=== PATIENT | male | born 1990 | race Two or more races ===

== ENCOUNTER 2019-07-24 14:50 | Emergency (ER) | payer MEDICAID, OTHER ==
[~2019-07-24] VITALS: Ht 177.8 cm; Wt 80.0 kg
[~2019-07-24 14:50] MED LIST: DIVA-76 PO; GEMF600T89 PO; IBUP-1985 PO; OLAN20TA34 PO
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
[2019-07-24] MEDS ORDERED: ibuprofen tablet 400 MG TABLET PO ONE (15:05)
[2019-07-24] MEDS ORDERED: ibuprofen 200mg tablet PO ONE (15:10)
[2019-07-24] MEDS ORDERED: LITH300C PO (15:32)
[2019-07-24] MEDS ORDERED: OLAN20TA3 PO (15:34)
[2019-07-24] MEDS ORDERED: QUET-1 PO (15:38)
[2019-07-24 15:46] LABS: BASOPHILS % (AUTO) 0.2 % (0-1); EOSINOPHILS % (AUTO) 0.2 % (0-6); HEMATOCRIT 46.6 % (42.0-52.0); HEMOGLOBIN 15.7 g/dl (14.0-17.9); LYMPHOCYTES # (AUTO) 1.3 X10'3 (1.1-4.8); MEAN CORPUSCULAR HEMOGLOBIN 30.3 PG (27.0-31.0); MEAN CORPUSCULAR HGB CONC 33.6 g/dL (33.0-36.5); MEAN CORPUSCULAR VOLUME 90.1 FL (78-98); MONOCYTES # (AUTO) 0.7 X10'3 (0-0.9); MONOCYTES % (AUTO) 7.2 % (2-12); NEUTROPHILS % (AUTO) 79.4 % (42-75); PLATELET COUNT 360 X10'3 (140-440); RED BLOOD COUNT 5.17 X10'6 (4.70-6.10); RED CELL DISTRIBUTION WIDTH 14.5 % (11.5-14.5); WHITE BLOOD COUNT 10.1 X10'3 (4.5-11.0)
--- NOTE | 2019-07-24 15:57 | NUR ---
PT TAKEN TO MAIN ER FOR SAFETY REASONS
[2019-07-24 15:58] LABS: CLARITY,URINE CLEAR (Clear); COLOR,URINE YELLOW (Yellow); GLUCOSE, URINE NEGATIVE (Neg); KETONES,URINE NEGATIVE (Neg); LEUKOCYTE ESTERASE ,URINE NEGATIVE (Neg); NITRITES, URINE NEGATIVE (Neg); OCCULT BLOOD,URINE TRACE-INTACT (Neg); PROTEIN,URINE NEGATIVE (Neg); UA COLLECTION TYPE CLN CATCH MIDSTREAM; UROBILINOGEN,URINE 0.2 E.U/dL (0.2-1.0)
[2019-07-24 16:04] LABS: ALANINE AMINOTRANSFERASE 21 U/L (12-78); ALBUMIN 4.2 G/DL (3.4-5.0); ALBUMIN/GLOBULIN RATIO 1.1 (1.1-1.5); ALKALINE PHOSPHATASE 97 IU/L (46-116); ANION GAP 3 (8-16); ASPARTATE AMINO TRANSFERASE 6 U/L (10-37); BILIRUBIN,TOTAL 0.4 MG/DL (0.1-1.0); BLOOD UREA NITROGEN 10 MG/DL (7-18); BUN/CREATININE RATIO 9.7 (5.4-32.0); CHLORIDE 110 MMOL/L (99-107); CREATININE 1.03 MG/DL (0.60-1.10); GLUCOSE 97 MG/DL (70-104); POTASSIUM 4.2 MMOL/L (3.5-5.1); SODIUM 144 MMOL/L (135-145); TOTAL CARBON DIOXIDE 30.6 MMOL/L (24-32); TOTAL PROTEIN 8.2 G/DL (6.4-8.2); eGFR 87 ML/MIN
[2019-07-24 16:04] LABS: BACTERIA,URINE NONE SEEN /HPF (Neg); MUCUS STRANDS NONE SEEN /LPF (Neg); RBC,URINE 0-2 /HPF (0-2); SQUAMOUS EPITHELIAL CELL,UR FEW /LPF (FEW); WBC,URINE 0-4 /HPF (0-4)
[2019-07-24 16:07] LABS: URINE AMPHETAMINE SCREEN NEGATIVE (Neg); URINE BARBITUATE SCREEN NEGATIVE (Neg); URINE BENZODIAZEPINES SCREEN NEGATIVE (Neg); URINE CANNABINOID SCREEN NEGATIVE (Neg); URINE COCAINE SCREEN NEGATIVE (Neg); URINE METHADONE SCREEN NEGATIVE (Neg); URINE OPIATE SCREEN NEGATIVE (Neg); URINE PHENCYCLIDINE SCREEN NEGATIVE (Neg)
[2019-07-24 16:10] LABS: ETHANOL < 0.010 GM/DL (0.0-0.010)
[2019-07-24 16:12] LABS: ACETAMINOPHEN < 2.0 UG/ML (10-30)
--- NOTE | 2019-07-24 17:16 | NUR ---
IN BED GETS UP SOMETIMES AND WALKS AROUND ROOM NO OUTBURST OR VILENT BEHAVORE SEEN
[2019-07-24] MEDS ORDERED: diphenhydrAMINE 25mg capsule PO ONE (17:35)
[2019-07-24] MEDS ORDERED: haloperidol lactate 5mg/ml inj IM ONE ×2 (17:45→18:30)
[2019-07-24] MEDS ORDERED: LORazepam 2 mg/ml vial IM ONE (17:45)
--- NOTE | 2019-07-24 18:20 | NUR ---
PT REFUSED ATIVAN AND HADOL SAY HE DOES NOT WANT A SHOT BUT WOULD TAKE A PILL TALK TO RAJNI GARCIA HE SAID HE IS FINE HOLDING OFF FOR NOW IF HE REMAINS CALM
--- NOTE | 2019-07-24 19:33 | NUR ---
The patient was moved to bed 20 form bed 16. He was very cooperative and friendly with staff and peers. He currently is eating his dinner. He denies physical complaints. He stated he is homeless and was sent to [facility] from [facility] for conservatorship.
[2019-07-24] MEDS: lithium carbonate 150mg capsule PO SCH (20:22)
[2019-07-24] MEDS: olanzapine 10mg tablet PO SCH (20:23)
[2019-07-24] MEDS: quetiapine 100mg tablet PO SCH (20:23)
--- NOTE | 2019-07-24 20:32 | NUR ---
The patient took his HS medications. He remains polite and pleasant.
--- NOTE | 2019-07-24 22:10 | NUR ---
The patient is awake but cooperative.
--- NOTE | 2019-07-24 23:02 | NUR ---
xaviert faxed to [facility]
--- NOTE | 2019-07-24 23:30 | NUR ---
The patient is awake. Frequently asking for juice and water. The patient was told no extra fluids for the rest of the evening 2nd to electrolyte balance.
--- NOTE | 2019-07-24 23:46 | NUR ---
The patient reports he is awake because "of the pressure of the air"
--- NOTE | 2019-07-25 01:12 | NUR ---
The patient appears to be sleeping
--- NOTE | 2019-07-25 04:22 | NUR ---
The patient appears to be sleeping.
--- NOTE | 2019-07-25 05:30 | NUR ---
The patient appears to be sleeping
[2019-07-25] MEDS ORDERED: LORazepam 2 mg/ml vial IM PRN (07:00)
--- NOTE | 2019-07-25 07:11 | NUR ---
Pt is alseep on his side, no stress noted.
--- NOTE | 2019-07-25 07:34 | NUR ---
PT IS SLEEPING, RESPIRATIONS SPONTANEOUS, EVEN AND UNLABORED, NO S/S OF DISTRESS, DISCOMFORT OR AGITATION.
--- NOTE | 2019-07-25 08:33 | NUR ---
Pt woke up for breakfast with lots of staff prompting, he acted startled, stated that "I thought you are a boogieman" to staff. Cooperative and compliant with nursing assessment, advised that he has no intent to harm self or others.
--- NOTE | 2019-07-25 08:40 | NUR ---
PT SITTING UP AT BEDSIDE EATING BREAKFAST, PT CONTINUES TO BE CALM AND COOPERATIVE WITH STAFF, PT IN LINE OF SITE OF NURSING STATION WITH RN AND ED SITTERS
--- NOTE | 2019-07-25 09:13 | NUR ---
Pt advised that he can't sleep, staff offered magazine. Pt got up for bathroom, gait steady. No stress/anxiety noted.
--- NOTE | 2019-07-25 09:47 | NUR ---
Pt advised that he is not sleepy and he wanted to chat. 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 Pt denied AH/VH.
--- NOTE | 2019-07-25 10:47 | NUR ---
PT REFUSED IM ATIVAN 1 MG, CALLED DR WILSON RECEIVED VERBAL ORDER 1 MG PO ATIVAN ONCE.
[2019-07-25] MEDS ORDERED: LORazepam 1 MG tablet PO ONE (10:50)
--- NOTE | 2019-07-25 11:03 | NUR ---
Gave pt Ativan 1 mg PO, pt took PRN med without any incident.
--- NOTE | 2019-07-25 12:34 | NUR ---
Pt can be intrusive, does interupt staff often asking for snacks. Pt c/o hungry, staff gave him an extra from this morning.
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
--- NOTE | 2019-07-25 13:49 | NUR ---
Pt finished his late lunch tray. He is awake in bed, appears calm.
--- NOTE | 2019-07-25 15:10 | NUR ---
Pt is laying in bed, has been requesting water constantly. Staff provided education on water toxicity.
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
--- NOTE | 2019-07-25 19:38 | NUR ---
The patient is sitting on his bed and presents as calm and pleasant. He denies that he is having auditory or visual hallucinations but has been observed laughing to himself. When asked how his mood was he stated, "pleasant" He denies anxiety. He denies thoughts to harm himself or others. Reviewed plan of care with the patient.
[2019-07-25] MEDS: olanzapine 10mg tablet PO SCH (20:14)
[2019-07-25] MEDS: lithium carbonate 150mg capsule PO SCH (20:14)
[2019-07-25] MEDS: quetiapine 100mg tablet PO SCH (20:14)
--- NOTE | 2019-07-25 20:52 | NUR ---
The patient is resting on his bed and periodically laughing to himself. He took his HS medications without problems and had an evening snack.
--- NOTE | 2019-07-25 23:16 | NUR ---
The patient appears to be sleeping
--- NOTE | 2019-07-26 00:42 | NUR ---
The patient appears to be sleeping
--- NOTE | 2019-07-26 03:01 | NUR ---
The patient is currently sleeping
--- NOTE | 2019-07-26 04:47 | NUR ---
The patient appears to have slept well during the night
--- NOTE | 2019-07-26 07:00 | NUR ---
pt asleep in bad 20 NAD
--- NOTE | 2019-07-26 09:00 | NUR ---
consumed 100% of breakfast. is resting comfortably in bed, drinking coffee, pleasant and cooperative
--- NOTE | 2019-07-26 11:03 | NUR ---
PT AWAKE SITTING UP IN BED DRINKING COFFEE. NO NEEDS AT THIS TIME
--- NOTE | 2019-07-26 11:03 | NUR ---
Freda argueta in [facility] - 07/26/19 at 1103 by TIA PT AWAKE SITTING UP IN BED NO
--- NOTE | 2019-07-26 11:07 | NUR ---
UP TO BR, GAIT STEADY
--- NOTE | 2019-07-26 12:26 | NUR ---
PT REPORTS HAVING SOME INDIGESTION FROM THE FOOD THAT WE SERVE, ASKED FOR MALOX AND VISCOUS LIDOCAINE FROM DR CAO, WILL MEDICATE PT AFTER ORDERS HAVE BEEN PROCESS, PT INCREASINGLY TALKING TO NURSE AT STATION FROM BED, ASKED PT IF HE NEEDS ANYTING FOR ANXIETY AND PT STATES HE IS FEELING FINE, PT INFORMED TO EAT ICE CHIPS PT HAS ALREADY HAD 2 CUPS OF COFFEE AND A 2 PITCHERS OF WATER, PT INFORMED OF POTENTIAL OF WATER TOXICITY AND IS AGREEABLE
[2019-07-26] MEDS ORDERED: pantoprazole 40mg Tablet.DR PO ONE (12:30)
[2019-07-26] MEDS ORDERED: mag hydrox/Alum hydrox/simeth 30ml oral suspension PO ONE (12:30)
--- NOTE | 2019-07-26 12:35 | NUR ---
NEENA WITH JONATHON HUSAIN AT BEDSIDE SPEAKING WITH PT, NEENA ALSO BROUGHT PT 2 BAGS OF CLOTHES WITH INVENTORY SHEET, DAHIANA COPIED INVENTORY SHEET PLACED IN CHART AND CLOTHES LOCKED IN AMBULANCE BAY LOCKERS.
--- NOTE | 2019-07-26 12:48 | NUR ---
MEDICATED PT WITH PROTONIX AND MALOX PER ORDERS, PT SITTING UP IN BED WAITING FOR LUNCH TO ARRIVE.
--- NOTE | 2019-07-26 13:14 | NUR ---
LUNCH TRAY PLACED AT BEDSIDE, AND SITTING UP EATING AT THIS TIME
--- NOTE | 2019-07-26 13:52 | NUR ---
relieving RN for break, pt is resting quietly on bed, calm and cooperative, pt c/p pain to left elbow where blood was drawn, gave pt a bag with ice chips
--- NOTE | 2019-07-26 16:19 | NUR ---
PT REPORTS FEELING ANXIOUS, PT INCREASINGLY CALLING OUT TO TALK TO STAFF AT NURSES STATION, ASKING FOR BOOKS, WATER, FOOD, AND COFFEE, CALLED OTERO PA RECEIVED VERBAL ORDER FOR 1 MG ATIVAN PO ONCE NOW.
[2019-07-26] MEDS ORDERED: LORazepam 1 MG tablet PO ONE (16:20)
--- NOTE | 2019-07-26 16:26 | NUR ---
PT MEDCIATED WITH 1 MG ATIVAN PER ORDERS, PT IS NOW READING THE BIBLE. PT WAS CALM AND COOPERATIVE WITH RN DURING INTERACTION
--- NOTE | 2019-07-26 18:55 | NUR ---
Patient is sitting at bedside. He is awake and well oriented. Patient states he is feeling like life is very complicated, "It's hard to figure out." Patient states he is feeling more relaxed after receiving ativan a short time ago. Patient ate his full meal. Patient exhibits a blunted affect. He tells this health underwriter that he is bipolar. He denies S/I, or H/I at this time. Patient exhibits is now wearing a towel around his head. Patient is adavised that he is in a safe place. He is in direct view from the nursing station. Frequent rounding is being done for patient and staff safety.
[2019-07-26] MEDS: quetiapine 100mg tablet PO SCH (20:01)
[2019-07-26] MEDS: lithium carbonate 150mg capsule PO SCH (20:02)
[2019-07-26] MEDS: temazepam 15mg capsule PO PRN (20:02)
[2019-07-26] MEDS: olanzapine 10mg tablet PO SCH (20:02)
--- NOTE | 2019-07-26 20:18 | NUR ---
Patient has been awake and responding to internal stimuli. He exhibits tangntial thought. Patient is redirected and encouraged to rest in bed. He has at times paced the unit. Rx evening/NOC meds given including Restoril. This content writer will closely observe this patient. Patient is medication compliant at this time. Some paranoia is present.
--- NOTE | 2019-07-26 22:19 | NUR ---
Patient has gotten up to go to restroom multiple times. He is cooperative, he still responds to internal stimuli. Patient is cooperative and can be redirected back to bed.
--- NOTE | 2019-07-27 00:53 | NUR ---
Patient is sleeping quietly, low fowlers in bed. In view from nursing station.
--- NOTE | 2019-07-27 01:39 | NUR ---
Patient sleeping quietly, in view from nursing station.
--- NOTE | 2019-07-27 02:15 | NUR ---
Patient is sleeping quietly. In view from nursing station.
--- NOTE | 2019-07-27 04:11 | NUR ---
Patient is sleeping on left side. In view from nursing station.
--- NOTE | 2019-07-27 05:59 | NUR ---
Patient is awake now. Sitting up in bed. Patient is well oriented and cooperative. Patient states he felt like he has slept well.
--- NOTE | 2019-07-27 06:38 | NUR ---
Patient sitting at the edge of his bed. Patient awoke after vital signs taken. Patient up and down to BR x 2 since RN arrived. No distress observed. Continue to monitor.
--- NOTE | 2019-07-27 08:13 | NUR ---
Patient eating breakfast. No distress observed. Continue to monitor.
--- NOTE | 2019-07-27 08:34 | NUR ---
PT GIVEN A CUP OF COFFEE, EDUCATED THAT HE WILL ONLY BE ABLE TO HAVE ONE MORE PITCHER OF WATER TODAY DUE TO HIS ELECTROLYTES. PT AGREEABLE.
--- NOTE | 2019-07-27 10:04 | NUR ---
Patient sitting up on the side of the bed chatting with staff. No distress observed. Continue to monitor.
--- NOTE | 2019-07-27 11:37 | NUR ---
Breaking primary RN, pt is isitting on the side of his bed, calm, no s/s of agitation observed
--- NOTE | 2019-07-27 12:11 | NUR ---
SUSAN Ray speaking with patient. No distress observed. Continue to monitor.
--- NOTE | 2019-07-27 14:17 | NUR ---
Patient sitting on the side of his bed looking around. No disress observed. Continue to monitor.
--- NOTE | 2019-07-27 16:05 | NUR ---
Patient reclining awake in bed. No distress observed. Continue to monitor.
--- NOTE | 2019-07-27 17:45 | NUR ---
Patient still reclining in bed awake. No distress observed. Continue to monitor.
--- NOTE | 2019-07-27 18:39 | NUR ---
PT IS SITTING UP ON THE SIDE OF THE BED. WAS EATING DINNER AND ATE 100% OF IT. WHEN INTRODUCED TO PT, HE SEEMED TO BE PLEASANT. STATES "I'M PRETTY GOOD." DOES NOT APPEAR TO BE RESPONDING TO INTERNAL STIMULI. PTS RESPIRATIONS ARE EVEN AND UNLABORED. DOES NOT APPEAR TO BE IN ANY DISTRESS. THIS RN WAS INFORMED BY [employer] THAT FLUID RESTRICTIONS NEED TO BE TAKEN PLACE HE HAS ALREADY BEEN DRINKING PLENTY OF FLUIDS.
--- NOTE | 2019-07-27 20:00 | NUR ---
pt is sitting on the side of the bed. ambulated to the bathroom to brush his teeth. appears to be in no distress. respirations are even and unlabored.
[2019-07-27] MEDS: olanzapine 10mg tablet PO SCH (20:15)
[2019-07-27] MEDS: lithium carbonate 150mg capsule PO SCH (20:16)
[2019-07-27] MEDS: quetiapine 100mg tablet PO SCH (20:16)
--- NOTE | 2019-07-27 22:10 | NUR ---
Pt ambulated to the bathroom. He is constatnly asking for water, crackers, orange juice. He states that his mouth is dry and that's why he needs the water. Provided pt with minimal fluids as he has been drinking plenty. Emcouraged patient to try and get some sleep and pt states he will after he drinks some more water. There is no agitaion noted at this time but patient is still responding to internal stimuli. Respirations are even and unlabored. Appears to be in no distress.
--- NOTE | 2019-07-28 00:01 | NUR ---
Pt is currently sleeping in a supine position. Does not appear to be in any distress.
--- NOTE | 2019-07-28 02:04 | NUR ---
Pt appears to be sleeping while laying in a supine position. Respirations are even and unlabored. Does not appear to be in any distress.
--- NOTE | 2019-07-28 04:07 | NUR ---
Pt continues to sleep while laying in a supine position. Respirations are even and unlabored. Does not appear to be in any distress.
--- NOTE | 2019-07-28 05:48 | NUR ---
Pt ambulates to the bathroom. After returning to his bed, pt is asking for crackers. Pt is also observed drinking water.
--- NOTE | 2019-07-28 14:13 | NUR ---
Pt complains of hang nail on left thumb and right ring finger. Redness and swelling around nail bed. Appear to be paranychia. Dr. Capone informed and will order topical ABX ointment.
[2019-07-28] MEDS ORDERED: LORazepam 1 MG tablet PO ONE (18:50)
[2019-07-28] MEDS: mupirocin 2% ointment 22GM TP SCH (19:28)
--- NOTE | 2019-07-28 19:36 | NUR ---
Rcvd report from Bakari CABALLERO. Pt was sitting on the edge of his bed at change of shift awaiting dinner, pt eats quickly and requests water. Pt has been drinking an excessive amt of fluids according to report. Pt appears anxious and is pacing after dinner. Pt was given a pitcher of water, PRN med for anxiety and ABX applied to his finger. Pt is sitting quietly on his bed and asks when evening meds will be given. Pt states he would like to call his grandparents and go home. Pt denies s/i, denies h/i. Pt became irritable when asked about a/vh, he denies a/vh and states "I just feel a little depressed because I can't go home tonight."
[2019-07-28] MEDS: quetiapine 100mg tablet PO SCH (20:31)
[2019-07-28] MEDS: temazepam 15mg capsule PO PRN (20:31)
[2019-07-28] MEDS: olanzapine 10mg tablet PO SCH (20:32)
[2019-07-28] MEDS: lithium carbonate 150mg capsule PO SCH (20:32)
--- NOTE | 2019-07-28 21:13 | NUR ---
Pt is laying on his bed eyes closed. Pt was med compliant during med pass. Pt states he is drinking a lot of water because he says he can't breath if he lets his mouth get dry so he is afraid of his mouth getting dry. Pt had one pitcher of water with ice.
--- NOTE | 2019-07-28 23:27 | NUR ---
pt laying in bed resting comfortably. RR even and unlabored no s/s distress
--- NOTE | 2019-07-29 00:46 | NUR ---
Pt is laying on her left side sleeping. RR even and unlabored no s/s of distress Addendum: 07/29/19 at 0047 by [email or web address] *HIS left side
--- NOTE | 2019-07-29 02:48 | NUR ---
pt laying on his back sleeping. RR even and unlabored no s/s distress.
--- NOTE | 2019-07-29 05:00 | NUR ---
pt awaken for vitals and is currently laying on his right side under his blankets, rr even and unlabored.
--- NOTE | 2019-07-29 06:30 | NUR ---
Pt lying in bed, appears to be sleeping.
--- NOTE | 2019-07-29 07:52 | NUR ---
Pt up to brush his teeth.
[2019-07-29] MEDS: mupirocin 2% ointment 22GM TP SCH ×2 (08:15→20:00)
--- NOTE | 2019-07-29 08:51 | NUR ---
Pt asking for coffee, states he doesn't want decaf. Explained that we are not allowed to give pt's regular coffee.
--- NOTE | 2019-07-29 10:50 | NUR ---
Pt restless, pacing, stating he wants to get out of here. Asked pt if he needed a prn, he stated that he was fine. Pt has not tried to walk off the unit.
--- NOTE | 2019-07-29 12:10 | NUR ---
Pt got up to use the bathroom.
--- NOTE | 2019-07-29 12:24 | NUR ---
Pt is socializing and walking slowly back and forth in front of the nurses' station with another male peer.
--- NOTE | 2019-07-29 13:32 | NUR ---
PCT reported that pt was responding to internal stimuli and talking to himself. Asked pt if he was hearing voices, he stated that he heard people in that closet over there talking about him. Asked pt if this RN could get him anything to help. Pt stated, "No, I'm okay." Asked pt to please let this nurse know if he changes his mind and wants to take something.
--- NOTE | 2019-07-29 13:32 | NUR ---
Note kendall in ED - 07/29/19 at 1354 by SAHIL PCT reported that pt was responiding to internal stimuli and talking to himself. Asked pt if he was hearing voices, he stated that he heard people in that closet over there talking about him. Asked pt if this RN could get him anything to help. Pt stated, "No, I'm okay." Asked pt to please let this nurse know if he changes his mind and wants to take something.
--- NOTE | 2019-07-29 13:56 | NUR ---
Pt called his grandfather in [place], the call was disconnected. His grandfather called him back.
--- NOTE | 2019-07-29 14:26 | NUR ---
Pt asking how come he hasn't been given a TB test yet or a flu shot. Explained that this is not usually done here but will probably be done wherever he is placed. Pt is pacing back and forth in front of the nurses' station.
--- NOTE | 2019-07-29 15:36 | NUR ---
Pt is awake sitting on the side of his bed.
--- NOTE | 2019-07-29 18:30 | NUR ---
Received report and assumed care of patient from [facility]
[2019-07-29] MEDS: olanzapine 10mg tablet PO SCH (20:35)
[2019-07-29] MEDS: quetiapine 100mg tablet PO SCH (20:36)
[2019-07-29] MEDS: lithium carbonate 150mg capsule PO SCH (20:36)
--- NOTE | 2019-07-30 00:42 | NUR ---
The patient is sleeping on his left side. RR unlabored. No s/s of distress.
--- NOTE | 2019-07-30 02:30 | NUR ---
The patient is asleep in supine position. RR unlabored. No s/s of distress.
--- NOTE | 2019-07-30 05:32 | NUR ---
The patient is awake sitting on the side of his bed. He is quiet and acting appropriately.
[2019-07-30] MEDS ORDERED: nicotine 21mg patch - 24 hr TD ONE (07:25)
--- NOTE | 2019-07-30 07:25 | NUR ---
PT UP WALKING AROUND HE ASKED FOR A NICATINE PATCH RECIVED ORDER FOR PTACH
[2019-07-30] MEDS: mupirocin 2% ointment 22GM TP SCH ×2 (07:30→20:00)
--- NOTE | 2019-07-30 08:28 | NUR ---
nicotin patch placed pt ate breakfast and cleaned up after himself
--- NOTE | 2019-07-30 10:14 | NUR ---
sitting at edge of bed drinking water no issues of outbursts
[2019-07-30] MEDS: LORazepam 1 MG tablet PO PRN (11:00)
--- NOTE | 2019-07-30 11:15 | NUR ---
pt getting aggiated ativan ordered and given. now on phone with [employer]kle
--- NOTE | 2019-07-30 14:17 | NUR ---
pt is up pacing around asking for more coffee
--- NOTE | 2019-07-30 16:14 | NUR ---
pt keeps trying to hang out at the nursing desk and needing reminded not to
[2019-07-30] MEDS: olanzapine 10mg tablet PO SCH (20:17)
[2019-07-30] MEDS: quetiapine 100mg tablet PO SCH (20:17)
[2019-07-30] MEDS: lithium carbonate 150mg capsule PO SCH (20:17)
--- NOTE | 2019-07-30 21:49 | NUR ---
The patient is sleeping in supine position. RR unlabored. No s/s of distress.
--- NOTE | 2019-07-30 22:54 | NUR ---
The patient appears to be sleeping.
--- NOTE | 2019-07-31 00:58 | NUR ---
The patient appears to be sleeping.
--- NOTE | 2019-07-31 02:29 | NUR ---
The patient appears to be asleep in supine position.
--- NOTE | 2019-07-31 04:28 | NUR ---
The patient is asleep on his right side. Resp unlabored. No s/s of distress.
--- NOTE | 2019-07-31 06:42 | NUR ---
PT AWAKE, AMBULATORY TO BATHROOM, NO S/S OF DISTRESS, DISCOMFORT OR AGITATION AT THIS TIME.
[2019-07-31] MEDS: mupirocin 2% ointment 22GM TP SCH ×2 (08:00→21:12)
--- NOTE | 2019-07-31 08:36 | NUR ---
KINGS WITH [facility] STATES THAT HE HAS BEEN DISCUSSING WITH [facility] FOR PLACEMENT BUT HE IS NUMBER 70 ON THE WAITLIST, [facility] IS TRYING TO PLACE HIM SOMEWHERE ELSE WHILE ON THE WATLIST TO [facility].
--- NOTE | 2019-07-31 08:38 | NUR ---
PATIENT WAS NOTED UP, PACING AROUND, ASKED PATIENT IF HE WAS FEELING ANXIOUS AND WAS OFFERED ATIVAN, PATIENT DENIED FEELING ANXIOUS AND DIDN'T WANT TO TAKE ATIVAN AT THIS TIME.
--- NOTE | 2019-07-31 11:19 | NUR ---
PT ASKING FOR ANOTHER CUP OF COFFEE, PT INFORMED HE HAD 3 CUPS OF COFFEE TOTAL TODAY AND CAN NOT HAVE ANY MORE, PT OFFERED TEA, OR JUICE, PT ALSO ASKED FOR JELLO, PT GIVEN APPLE JUICE AND JELLO AND SALTINE CRACKER PT INFORMED WILL NEED TO WAIT FOR LUNCH TRAY FOR ANY OTHER FOOD OR DRINK, PT IS AGREEABLE TO PLAN.
--- NOTE | 2019-07-31 12:48 | NUR ---
PT BROUGHT UP TO [facility] VIA WHEELCHAIR WITH [facility]IV[facility] ED SITTER AND 2 MALE SECURITY OFFICERS FOR SHOWER, BEDDING CHANGED AND ROOM CLEANED BY HOUSEKEEPING WHILE PT AWAY FROM ROOM.
--- NOTE | 2019-07-31 13:19 | NUR ---
PT IS BACK FROM SHOWER AND EATING FROM LUNCH TRAY, PT ALSO GIVEN EXTRA LUNCH TRAY AND FILLED PT WATER ICE PITCHER
--- NOTE | 2019-07-31 13:20 | NUR ---
PT ATE 100% OF BOTH LUNCH TRAYS
--- NOTE | 2019-07-31 13:37 | NUR ---
GIVING PRIMARY NURSE A BREAK, PT. IS SITTING AT SIDE OF BED.
--- NOTE | 2019-07-31 13:44 | NUR ---
PT. WAS REQUESTING MORE JELL-O, TOLD HE HAS HAD PLENTY OF SNACKS THROUGHOUT THE DAY WELL 2 LUNCH TRAYS. HE SAID "OH, OKAY, I'M A DIABETIC". LOOKED AT PT'S MEDICAL HISTORY AND THERE IS NO HISTORY OF DM AND WHILE I WAS LOOKING AT HIS CHARTS PT SAID "IT WAS A JOKE".
--- NOTE | 2019-07-31 15:00 | NUR ---
PT GRANDFATHER IS HERE VISITING THE PATIENT, PT IS REMAINING CALM AND COOPERATIVE SHOWING NOT S/S OF DISTRESS OR AGITATION.
[2019-07-31] MEDS: LORazepam 1 MG tablet PO PRN (16:06)
[2019-07-31] MEDS ORDERED: haloperidol 5mg tablet PO ONE (16:30)
--- NOTE | 2019-07-31 16:30 | NUR ---
DR CAO INFORMED OF PT INCREASING ANXIOUSNESS, PACING, PRESSURED FAST SPEECH, ORDERS FOR HALDOL TO FOLLOW.
--- NOTE | 2019-07-31 17:02 | NUR ---
PT. REQUESTED TO USE PHONE TO CALL HIS UNCLE, WAS UNABLE TO REACH UNCLE. PT. SITTING AT BEDSIDE.
--- NOTE | 2019-07-31 19:22 | NUR ---
PATIENT ATE 2 DINNER TRAYS. PATIENT IS APPROPRIATE AND POLITE, EVEN ASKING TO HELP WITH SIMPLE TASKS IF NEEDED
[2019-07-31] MEDS: temazepam 15mg capsule PO PRN (20:40)
[2019-07-31] MEDS: olanzapine 10mg tablet PO SCH (20:43)
[2019-07-31] MEDS: lithium carbonate 150mg capsule PO SCH (20:43)
[2019-07-31] MEDS: quetiapine 100mg tablet PO SCH (20:43)
--- NOTE | 2019-07-31 21:11 | NUR ---
PATIENT WLAKING BACK AND FORTH TO HELP WITH HIS ANXIETY
--- NOTE | 2019-07-31 23:15 | NUR ---
PATIENT SLEEPING ON HIS RIGHT SIDE SNORING SOFTLY RR EVEN UNLABORED
--- NOTE | 2019-08-01 00:03 | NUR ---
PATIENT SLEEEPING RR EVN UNLABORED, MOVING SELF AROUND IN BED
--- NOTE | 2019-08-01 02:01 | NUR ---
PATIENT SLEEPING ON BACK, RR EVEN UNLABORED
--- NOTE | 2019-08-01 04:37 | NUR ---
PATIENT SLEEPING ON LEFT SIDE SLIGHT SNORE, RR EVEN UNLABORED
[2019-08-01] MEDS: mupirocin 2% ointment 22GM TP SCH ×2 (08:00→20:00)
--- NOTE | 2019-08-01 08:10 | NUR ---
DR LOCKHART AT BEDSIDE FOR AM EVALUATION
--- NOTE | 2019-08-01 08:20 | NUR ---
SAFETY BREAKFAST TRAY DELIVERED TO BEDSIDE, PT SLEEPING
--- NOTE | 2019-08-01 09:36 | NUR ---
PT REQUESTING THE NAME AND PHONE NUMBER OF HIS CONSERVITOR. SPOKE WITH CAT KU AND HE WILL TRY TO LOCATE THE INFORMATION FOR THE PT
--- NOTE | 2019-08-01 10:42 | NUR ---
Breaking primary RN, pt is up checking out pt in bed 23, then he went to the bathroom, will continue to monitor
--- NOTE | 2019-08-01 10:55 | NUR ---
OBTAINED PT'S CONSERVATOR INFORMATION: MIKE WYATT; PT GIVEN THE INFORMATION AND ASKED FOR THE PHONE TO CALL HIS CONSERVATOR.
--- NOTE | 2019-08-01 12:27 | NUR ---
BREAKING PRIMARY RN,PT IS SITTING IN A CHAIR AT BED SIDE, ASSISTING ANOTHER PT WITH HER PEN, HE IS CALM, NO AGITATION OBSERVED
[2019-08-01] MEDS: LORazepam 1 MG tablet PO PRN ×2 (13:30→20:26)
--- NOTE | 2019-08-01 13:32 | NUR ---
PT BECOMING AGGITATED, INSISTS HE IS BEING DISCHARGED TODAY AND HIS GRANDFATHER IS PICKING HIM UP. PT INFORMED THAT HE IS STILL ON A MH HOLD AND THAT CAT KU WILL BE ASKED TO SPEAK WITH HIM. PT IS PACING AND TALKING TO HIMSELF, PT GIVEN ATIVAN 1MG TO HELP WITH HIS ANXIETY
[2019-08-01] MEDS ORDERED: LORazepam 1 MG tablet PO ONE (14:00)
[2019-08-01] MEDS: acetaminophen 325mg tablet PO PRN (14:12)
--- NOTE | 2019-08-01 19:54 | NUR ---
The patient has been resting on his bed. He has been cooperative with the unit routine. He stated that his appetite has been good. He is complaining of having a dry mouth and explained, "The air pressure is goyo hard. I tend to get a dry mouth" He denies being a danger to himself or others. He denies psychotic symptoms. The patient is asking how much longer he will be here in the hospital and if he still needs to be conserved. He is unable to verbalize a realistic plan for food jail or clothing. His thought process is poorly focused. He reports his anxiety is low. He described his mood as "decent"
[2019-08-01] MEDS: temazepam 15mg capsule PO PRN (20:26)
[2019-08-01] MEDS: lithium carbonate 150mg capsule PO SCH (20:27)
[2019-08-01] MEDS: quetiapine 100mg tablet PO SCH (20:27)
[2019-08-01] MEDS: olanzapine 10mg tablet PO SCH (20:27)
--- NOTE | 2019-08-01 21:20 | NUR ---
The patient is at times laughing and talking to himself.
--- NOTE | 2019-08-01 23:49 | NUR ---
The patient currently appears to be sleeping.
--- NOTE | 2019-08-02 02:13 | NUR ---
The patient has been sleeping
--- NOTE | 2019-08-02 04:57 | NUR ---
The patient has slept well during the night
[2019-08-02] MEDS: mupirocin 2% ointment 22GM TP SCH ×2 (08:00→20:00)
--- NOTE | 2019-08-02 11:05 | NUR ---
Pt keeps asking RN if he can be RN's boyfriend. Pt educated that it is inappropriate behavior, That RN is here to take care of his medical needs. That this will not be permitted. Pt verbalizes understanding.
--- NOTE | 2019-08-02 11:25 | NUR ---
[facility] here to see pt. Working on temporary placement and manager intermediate placement at [facility]
--- NOTE | 2019-08-02 12:59 | NUR ---
Pt called nurse over wanting to talk to RN, pt wanted a high five and asked for a kiss. RN told pt that was inappropriate and would not be tolerated.
--- NOTE | 2019-08-02 15:36 | NUR ---
Dr. Cartagena interviewed patient for possible admissions to [facility]
[2019-08-02] MEDS: acetaminophen 325mg tablet PO PRN (16:24)
--- NOTE | 2019-08-02 18:48 | NUR ---
Assumed care of patient. Pt sitting on his bed A&Ox4. Pt is calm and cooperative, rr even and unlabored.
[2019-08-02] MEDS: NICOTINE POLACRILEX 2 MG LOZENGE BC PRN (19:16)
--- NOTE | 2019-08-02 19:30 | NUR ---
Pt sitting on his bed. Pt presents with flat affect, pt is shaking his leg as if agitated. Patient denies agitation or anxiety. Pt answers all questions. Pt states "I want to get off conservatorship." "I think I am ready,." "I just want to get out of here and go to [place] and [place]." "I want to go to the bars and have a good time." Pt denies SI, A/VH, but is observed lying on his bed laughing to intermittenly talking to himself. Pt seems to be hungry asking for snacks. Pt ate his tray and an extra one that was left. No outbursts noted. Will continue to monitor.
[2019-08-02] MEDS: olanzapine 10mg tablet PO SCH (20:30)
[2019-08-02] MEDS: LORazepam 1 MG tablet PO PRN (20:31)
[2019-08-02] MEDS: lithium carbonate 150mg capsule PO SCH (20:32)
[2019-08-02] MEDS: quetiapine 100mg tablet PO SCH (20:32)
--- NOTE | 2019-08-02 22:04 | NUR ---
Pt awake pacing the floor, no agitation noted. Pt calm and cooperative, rr even and unlabored.
--- NOTE | 2019-08-02 22:13 | NUR ---
Pt in bed with eyes open, no distress noted, rr even and unlabored. No agitation noted.
--- NOTE | 2019-08-02 23:33 | NUR ---
Pt is sleeping comfortably, soft snoring is observed. Pt is lying on right side, respirations even and unlabored.
--- NOTE | 2019-08-03 01:18 | NUR ---
Pt sleeping comfortably on left side, no distress noted. Respirations even and unlabored. Pt in view of the nursing station.
--- NOTE | 2019-08-03 03:26 | NUR ---
Patient sleeping comfortably on left side, in view of the nurses station. No distress noted, respirations even and unlabored.
--- NOTE | 2019-08-03 05:25 | NUR ---
Pt has changed over to his right side, sleeping comfortably with no distress noted. Respirations even and unlabored.
--- NOTE | 2019-08-03 07:05 | NUR ---
patient laying in bed on his left side sleeping, respirations appear normal and he is not in any distress at this time.
[2019-08-03] MEDS: mupirocin 2% ointment 22GM TP SCH ×2 (08:00→19:48)
--- NOTE | 2019-08-03 08:02 | NUR ---
patient sitting up on side of bed playing cards and drinking coffee. Patient's respirations appear normal and is not in any distress at this time. Patient intermittently gets up and paces or goes to the bathroom frequently.
--- NOTE | 2019-08-03 08:18 | NUR ---
PT ATE 100% OF HIS BREAKFAST TRAY AND 100% OF AN EXTRA BREAKFAST TRAY.
--- NOTE | 2019-08-03 09:29 | NUR ---
patient is sitting in chair at bedside appering very restless and slightly agitated. He keeps asking to make phone calls to try to reverse his conservatorship so he can "get back to the streets". He ate 100% of his breakfast, continually asks for refills of coffee and water. His respirations appear normal and he is not in any distress at this time.
[2019-08-03] MEDS: NICOTINE POLACRILEX 2 MG LOZENGE BC PRN ×3 (10:28→20:18)
--- NOTE | 2019-08-03 10:35 | NUR ---
patient is still sitting in a chair at bedside, respirations appear normal and he in not in any distress at this time.
[2019-08-03] MEDS: acetaminophen 325mg tablet PO PRN (10:55)
--- NOTE | 2019-08-03 11:30 | NUR ---
patient is sitting on the bed at this time reading a magazine, the patient's respirations appear normal and he is not in any distress at this time.
--- NOTE | 2019-08-03 12:51 | NUR ---
patient is currently sitting in a chair at bedside, the patient's respirations appear normal and is not in any distress at this time.
--- NOTE | 2019-08-03 13:39 | NUR ---
PT PACING CALMLY, ASKING TO USE PHONE AND FOR JUICE.
[2019-08-03] MEDS: LORazepam 1 MG tablet PO PRN (13:46)
--- NOTE | 2019-08-03 14:42 | NUR ---
patient sitting in chair at bedside facing out at the nurses' station singing and rubbing his hands on his legs. the patient's respirations appear normal and is in no distress at this time.
--- NOTE | 2019-08-03 15:47 | NUR ---
Freda argueta in [facility] - 08/03/19 at 1548 by TIMMY patient is sitting in the chair at bedside, respirations appea
--- NOTE | 2019-08-03 15:48 | NUR ---
patient is sitting in chair at bedside respirations appear normal and is not in any distress at this time
--- NOTE | 2019-08-03 15:53 | NUR ---
Pt presents as hypomanic AEB increased motor activity including pacing, hypersexual conversation and statement "my thoughts are moving." Primary RN aware. Anxiolytics administered recently. Will continue to monitor for effectivity.
--- NOTE | 2019-08-03 16:13 | NUR ---
patient requesting food was given alma crackers and milk
--- NOTE | 2019-08-03 16:48 | NUR ---
patient is sitting in a chair at bedside, respirations appear normal and is in no distress at this time
--- NOTE | 2019-08-03 17:52 | NUR ---
patient is sitting in chair at bedside, respirations appear normal and he isnt in any distress at this time.
--- NOTE | 2019-08-03 18:20 | NUR ---
Discussed pt's hypomanic bx with KRYSTYNA Saha. New orders received for Ativan 2mg PO BID, Seroquel 200mg PO 0800, and PRN: Haldol 5mg IM, Benadryl 50mg IM and Ativan 2mg IM for increased agitation.
--- NOTE | 2019-08-03 18:30 | NUR ---
Assumed patient care. Patient is well oriented but responding to internal stimuli. He occasionaly speaks out loud to people who are not there. Patient denies S/I at this time. Patient attempts to drink excess water. He is now being closely observed for excess H20 intake. Patiene exhibits agitation, he has poor eye contact. Patient requests multible food items beyond his dinner tray. Patient attempts to interact with a psychotic patient in another bed. Patient is redirected back to bed. Patient ambulates well to the bathroom as needed. Sedation will be considered as needed. Earlier on day shift patient made inappropiate lewd comments at female employees in this department. This patient will be closely monitored for patient and staff safety.
[2019-08-03] MEDS ORDERED: haloperidol lactate 5mg/ml inj IM PRN (18:55)
[2019-08-03] MEDS ORDERED: LORazepam 2 mg/ml vial IM PRN (19:00)
[2019-08-03] MEDS ORDERED: diphenhydrAMINE 50 mg/ml inj IM PRN (19:00)
[2019-08-03] MEDS: LORazepam 1 MG tablet PO SCH (19:46)
--- NOTE | 2019-08-03 19:50 | NUR ---
Patient still presents with agitation. He attempted to go outside overflow boundries and walk to the rear of the department. He was redirected back to his bed. Patient protested but did comply with this writers request to return to bed. Patient readvised of department rules. Patient given PO ativan for agitation.
[2019-08-03] MEDS ORDERED: LORazepam 1 MG tablet PO PRN (20:00)
[2019-08-03] MEDS: olanzapine 10mg tablet PO SCH (20:17)
[2019-08-03] MEDS: lithium carbonate 150mg capsule PO SCH (20:17)
[2019-08-03] MEDS: quetiapine 100mg tablet PO SCH (20:18)
--- NOTE | 2019-08-03 21:47 | NUR ---
Patient given Rx nightime medications including a nicotine lozenge. Patient expressed appreciation. Patients anxiety is decreasing somewhat now.
--- NOTE | 2019-08-03 22:00 | NUR ---
Patient is sleeping quietly on his right side. In direct view from the nursing station. A tech is seated nearby for patient and staff safety. PRN's are in place in case of agitation, they are not needed at this time.
--- NOTE | 2019-08-03 23:50 | NUR ---
Patient is sleeping on his left side.
--- NOTE | 2019-08-04 00:57 | NUR ---
Patient sleeping quietly on his left side.
--- NOTE | 2019-08-04 03:48 | NUR ---
Patient is sleeping on his right side. In view from the nursing station.
--- NOTE | 2019-08-04 05:13 | NUR ---
Patient sleeping on his right side. In view from nursing station.
--- NOTE | 2019-08-04 07:00 | NUR ---
resting quietly in bed.
[2019-08-04] MEDS: mupirocin 2% ointment 22GM TP SCH ×2 (08:00→20:00)
[2019-08-04] MEDS ORDERED: QUETIAPINE 200 MG TAB.SR.24H PO SCH (08:00)
--- NOTE | 2019-08-04 08:15 | NUR ---
pt refusing Seroquel and Ativan at this time. Stating he's waiting for his guardian to come and see him and he wants to be awake for it. Pt denies anxiety at this time and states "i'm fine". Pt does visibly appear calm at this time but is making grunting noises. Pt states he's just trying to wake up.
--- NOTE | 2019-08-04 09:06 | NUR ---
occationally gets up to use restroom and then retreats to bed, resting quietly.
--- NOTE | 2019-08-04 09:15 | NUR ---
pt sitting on side of bed, appears mildly agitated. asked pt again if he would like his Seroquel and Ativan and pt again refused stating he doesn't need it.
--- NOTE | 2019-08-04 09:33 | NUR ---
pt reports that he wants a sandwich because his stomach hurts, advised pt that having food won't make stomach ache go away then pt stated that his stomach no longer hurts.
--- NOTE | 2019-08-04 10:31 | NUR ---
Pt appears to be agitated, walking around his bed, leg shaking. Pt asked again if he will take his meds and he refuses stating he wants to talk to his conservator and states he doesn't want his meds. Pt asking when he can be released. Pt briefly spoke with Cory from [facility] about plan of care. Cory reassured pt that we are looking for placement for him.
[2019-08-04] MEDS ORDERED: mag hydrox/Alum hydrox/simeth 30ml oral suspension PO ONE (11:25)
--- NOTE | 2019-08-04 11:26 | NUR ---
pt appears to be anxious. walking around his bed and doing pushups on the ground. complains constantly of being hungry and asking for snacks. continues to refuse to take his Seroquel and Ativan. c/o heartburn. Order for Maalox obtained per pt request.
[2019-08-04] MEDS: NICOTINE POLACRILEX 2 MG LOZENGE BC PRN ×3 (11:33→20:38)
--- NOTE | 2019-08-04 12:16 | NUR ---
pt pacing back and forth on in the unit, appears to be anxious. Offered Ativan and Seroquel again, pt refused. Other RN, Anju, offered pts Ativan and Seroquel. Pt states he may take Ativan "soon" but not Seroquel.
[2019-08-04] MEDS: LORazepam 1 MG tablet PO SCH ×2 (12:56→20:38)
--- NOTE | 2019-08-04 13:16 | NUR ---
PT ATE 100% OF HIS LUNCH TRAY AND 100% OF AN EXTRA LUNCH TRAY.
--- NOTE | 2019-08-04 14:06 | NUR ---
pt restless, getting up and down from bed to chair and up to bathroom. Pt did finally take his AM dose of Ativan, still refuses to take Seroquel.
[2019-08-04] MEDS: quetiapine 100mg tablet PO SCH ×2 (15:03→20:38)
--- NOTE | 2019-08-04 15:10 | NUR ---
pt sneezing multiple times, thinks he's allergic to something, pt asking for Benadryl. pt pacing around the unit. IM Benadryl already ordered and pt refused a shot. Asked Dr. Monge for PO Benadryl and MD nelsoned for PO Benadryl for anxiety, agitation, or allergy sypmtoms.
[2019-08-04] MEDS: diphenhydrAMINE 25mg capsule PO PRN (15:18)
--- NOTE | 2019-08-04 16:04 | NUR ---
pt resting quietly in bed.
--- NOTE | 2019-08-04 17:12 | NUR ---
pt calm and cooperative, resting in bed.
--- NOTE | 2019-08-04 18:29 | NUR ---
Patient is sitting at bedside. He has eaten his dinner. Patient is well oriented, he does present with anxiety. Patient describes awankening thinking a gorilla was jumping on his chest. He then realized it was an a real gorilla. The patient denies H/I or S/I at this time. Patient states he wants to leave to live with his grandparents or to live on the streets of [place]. The patient is advised that he is conserved and this headline writer has no ability to release him. The patient is cooperative with this headline writer. Due to patients hypersexual nature towards female staff we will do frequent rounding for patient and staff safety. Patient is in direct observation from the nursing station.
--- NOTE | 2019-08-04 19:30 | NUR ---
Rx medications given. Patient is med compliant. Patient up to bathroom to void. Normal gait. Redirected to bed again. Patient complies.
--- NOTE | 2019-08-04 20:00 | NUR ---
Patient sitting at bedside tapping feet, doing pushups on occasion.
[2019-08-04] MEDS: lithium carbonate 150mg capsule PO SCH (20:37)
[2019-08-04] MEDS: temazepam 15mg capsule PO PRN (20:38)
[2019-08-04] MEDS: olanzapine 10mg tablet PO SCH (20:42)
--- NOTE | 2019-08-04 20:50 | NUR ---
Patient sitting at bedside. He requests more snacks. Patient advised no more snacks tonight. Patient has consumed his dinner tonight, extra jello, crackers too. Patient exhibits understanding.
--- NOTE | 2019-08-04 22:05 | NUR ---
Patient is now in low fowlers position. He is still awake but is trying to fall asleep.
--- NOTE | 2019-08-04 23:26 | NUR ---
Patient remains awake, sitting at bedside on a chair. Patient redirected back to bed. Patient responding at times to internal stimuli. Close observation from the nursing station.
--- NOTE | 2019-08-05 01:00 | NUR ---
Patient has been sleeping intermittently for the past hour. At this time he is sleeping soundly.
--- NOTE | 2019-08-05 01:27 | NUR ---
Patlient self turning in bed. He does not awaken. Sleeping on his right side.
--- NOTE | 2019-08-05 06:01 | NUR ---
Patient is sleeping, mid fowlers position, on his right side.
[2019-08-05] MEDS ORDERED: dexamethasone 4mg tablet PO ONE (06:50)
--- NOTE | 2019-08-05 07:01 | NUR ---
Assumed of pt. Pt asleep on right side in no apparent distress. Respirations are even and unlabored.
[2019-08-05] MEDS: quetiapine 100mg tablet PO SCH ×2 (07:33→20:18)
[2019-08-05] MEDS: mupirocin 2% ointment 22GM TP SCH ×2 (07:33→20:00)
[2019-08-05] MEDS: diphenhydrAMINE 25mg capsule PO PRN (07:34)
[2019-08-05] MEDS: LORazepam 1 MG tablet PO SCH ×2 (07:34→20:18)
--- NOTE | 2019-08-05 07:56 | NUR ---
Pt refusing seroquel and ativan. Pt states he is not prescribed these medications. He requests PRN benadryl. Attempted to show pt his medication list. Pt goes back to bed
--- NOTE | 2019-08-05 09:36 | NUR ---
[facility] at bedside with pt
--- NOTE | 2019-08-05 09:57 | NUR ---
Pt requesting germán
--- NOTE | 2019-08-05 11:32 | NUR ---
Pt is talking on the phone to someone named Moise
--- NOTE | 2019-08-05 12:33 | NUR ---
Pt attempting to call his grandmother
--- NOTE | 2019-08-05 12:54 | NUR ---
Pt standing next to bed staring at the clock
--- NOTE | 2019-08-05 13:35 | NUR ---
Pt ate two lunches and is now taking a nap
--- NOTE | 2019-08-05 14:52 | NUR ---
Pt asleep on right side in no apparent distress. Respirations even and unlabored
--- NOTE | 2019-08-05 16:11 | NUR ---
Pt ambulated to the bathroom with a steady gait
--- NOTE | 2019-08-05 18:30 | NUR ---
Received report and assumed care of patient. He is sitting in a chair art bedside.
[2019-08-05] MEDS ORDERED: mag hydrox/Alum hydrox/simeth 30ml oral suspension PO ONE (20:15)
[2019-08-05] MEDS: lithium carbonate 150mg capsule PO SCH (20:17)
[2019-08-05] MEDS: olanzapine 10mg tablet PO SCH (20:18)
[2019-08-05] MEDS: temazepam 15mg capsule PO PRN (20:18)
--- NOTE | 2019-08-05 20:30 | NUR ---
The patient is sitting in a chair at the end of his bed. Denies needs.
--- NOTE | 2019-08-05 22:30 | NUR ---
The patient is sleeping peacefully on his back. No s/s of distress.
--- NOTE | 2019-08-05 22:43 | NUR ---
Pt is lying on his back sleeping at this time with visible respirations. He does not show sign of pain or discomfort. He is within direct eye sight of the nursing station.
--- NOTE | 2019-08-06 00:30 | NUR ---
Patient continues to sleep on his back. RR unlabored. No s/s of distress.
--- NOTE | 2019-08-06 03:14 | NUR ---
The patient is now sleeping on his left side. No s/s of distress.
--- NOTE | 2019-08-06 04:52 | NUR ---
The patient is sleeping on his left side. RR unlabored. No s/s of distress.
--- NOTE | 2019-08-06 06:17 | NUR ---
PT SLEEPING, RESPIRATIONS SPONTANEOUS, EVEN AND UNLABORED, NO S/S OF DISTRESS, DISCOMFORT OR AGITATION AT THIS TIME, PT IN LINE OF NURSES STATION.
--- NOTE | 2019-08-06 07:41 | NUR ---
PT IS AWAKE, WALKING TO NURSES STATION ASKING FOR FOOD, SWEATSHIRT, PHONE AND WHEN BREAKFAST IS COMING, PT UPDATED CAN USE PHONE AT [phone], BREAKFAST COMING WITHIN THE EIGHT O CLOCK HOUR, PT HAS BLANKET, PT GIVEN JELLO SNACK. PT AGREEABLE TO PLAN OF CARE.
[2019-08-06] MEDS: mupirocin 2% ointment 22GM TP SCH ×2 (08:00→20:00)
[2019-08-06] MEDS: LORazepam 1 MG tablet PO SCH ×3 (08:00→20:00)
[2019-08-06] MEDS: quetiapine 100mg tablet PO SCH ×2 (08:00→20:01)
--- NOTE | 2019-08-06 08:03 | NUR ---
PT ATE ENTIRE BREAKFAST TRAY AND RETURNED EMPTY TRAY TO CART, PT REFUSING MORNING MEDICATIONS ATIVAN AND SEROQUEL PT STATES THEY MAKE HIM SLEEPING ALL DAY, PT REPORTS HE PACES/WALKS BUT REPORTS THAT WHEN HE DOES THAT HE IS NOT HAVING INCREASED ANXIETY.
--- NOTE | 2019-08-06 08:19 | NUR ---
PT GIVEN PHONE TO CALL LISA WITH [employer], PT FINISHED A QUICK PHONE CALL AND STATED LISA WITH PUBLIC [employer] WILL COME SEE HIM.
--- NOTE | 2019-08-06 08:36 | NUR ---
GAVE PT A SECOND CUP OF COFFEE AND INFORMED NO MORE COFFEE UNTIL LATER THIS AFTERNOON OR TOMORROW MORNING, PT AGREEABLE TO PLAN
--- NOTE | 2019-08-06 10:13 | NUR ---
PT TO NURSES STATION REQUESTED REFILL OF WATER, REFILLED PT PITCHER WITH WATER AND ICE, PT SITTING UP IN BED, NO S/S OF DISTRESS, DISCOMFORT OR AGITATION AT THIS TIME, PT IN LINE OF SITE OF NURSES STATION.
--- NOTE | 2019-08-06 11:54 | NUR ---
PT FILLED WATER PITCHER AT SINK BY BED 20
--- NOTE | 2019-08-06 12:32 | NUR ---
SPOKE WITH DARRELL [facility] SHE STATES PT IS ON WAITING LIST FOR [facility] #76 OF 05/25/19 FOR [place] AND [employer] IN [place], PT HAS BEEN REFUSED AT [facility], [facility], [facility], [facility], [facility] SENT OUT PACKET TO ALL NON [facility] FACILITIES TODAY INCLUDING [facility]. DARRELL TO CHECK FOR UPDATED WAIT LIST NUMBER TO [facility] AND ALSO CHECKING UP ON ACUTE FACILITES.
--- NOTE | 2019-08-06 12:36 | NUR ---
PT USED PHONE TO CALL GRANDFATHER TO COME VISIT FROM [place] BUT HE DID NOT ANSWER
--- NOTE | 2019-08-06 12:49 | NUR ---
PT STATES HE SPOKE WITH CONSERVATOR LISA THIS MORNING AT [address]PROX 1130 AND WAS TOLD LISA WOULD COME VISIT HIM TODAY, PT GIVEN LUNCH TRAY.
--- NOTE | 2019-08-06 13:38 | NUR ---
[facility] CALLED STATES PT #[id number] ON WAITLIST FOR [facility] AND [facility], ALSO STATES PT ON WAITLIST FOR [facility] BUT NO NUMBER GIVEN.
--- NOTE | 2019-08-06 15:38 | NUR ---
PT CONSERVATOR LISA WAS AT BEDSIDE AND DISCUSSED PT HAS COURT DATE 10/24/2019 AND IF GRANDMOTHER WANTS TO BE CONSERVATOR THEN CAN APPEAL TO MAKE THOSE CHANGES AT THAT TIME, PT UNDERSTANDS PUBLIC RODRIGUE STILL IS PT CONSERVATOR AND THEY ARE AWAITING PLACEMENT BY [facility] TO FACILTIY. PT UNDERSTANDS AND AGREEABLE TO PLAN
--- NOTE | 2019-08-06 16:03 | NUR ---
LISA [facility]# [phone]
[2019-08-06] MEDS ORDERED: mag hydrox/Alum hydrox/simeth 30ml oral suspension PO ONE (16:45)
[2019-08-06] MEDS: diphenhydrAMINE 25mg capsule PO PRN (16:59)
[2019-08-06] MEDS: NICOTINE POLACRILEX 2 MG LOZENGE BC PRN (17:02)
--- NOTE | 2019-08-06 17:02 | NUR ---
PT FEELING ANXIOUS AND REQUESTING ATIVAN, PT ALSO OFFERED PRN BENADRYL AND REQUESTED NICOTINE LOZENGE, PT MEDICATED WITH ATIVAN, BENADRYL AND NICOTINE LOZENGE
[2019-08-06] MEDS: lithium carbonate 150mg capsule PO SCH (20:01)
[2019-08-06] MEDS: olanzapine 10mg tablet PO SCH (20:01)
[2019-08-06] MEDS: famotidine 20mg tablet PO SCH (20:32)
--- NOTE | 2019-08-06 21:39 | NUR ---
pt is sleeping, rr unlabored, no s/s of distress noted.
--- NOTE | 2019-08-06 23:03 | NUR ---
pt is sleeping, rr unlabored, no s/s of distress noted.
--- NOTE | 2019-08-07 03:16 | NUR ---
pt continues to sleep, no s/s of distress noted.
--- NOTE | 2019-08-07 06:12 | NUR ---
Patient sleeping supine. No distress observed. Continue to monitor.
[2019-08-07] MEDS: LORazepam 1 MG tablet PO SCH ×2 (07:46→20:23)
[2019-08-07] MEDS: quetiapine 100mg tablet PO SCH ×2 (07:46→20:24)
--- NOTE | 2019-08-07 08:15 | NUR ---
Patient sitting up and eating. No distress observed. Continue to monitor.
--- NOTE | 2019-08-07 08:20 | NUR ---
Freda argueta in [facility] - 08/07/19 at 1247 by TRI Patient got up with his walker and walked to the bathroom steady gait. Patient then went back to bed and eating breakfast. Continue to monitor.
--- NOTE | 2019-08-07 10:32 | NUR ---
Patient sleeping supine. No distress observed. Continue to monitor.
[2019-08-07] MEDS ORDERED: haloperidol lactate 5mg/ml inj IM ONE (11:15)
[2019-08-07] MEDS ORDERED: LORazepam 2 mg/ml vial IM ONE (11:15)
[2019-08-07] MEDS ORDERED: diphenhydrAMINE 50 mg/ml inj IM ONE (11:15)
--- NOTE | 2019-08-07 12:36 | NUR ---
Patient sitting at edge of bed singing to himself. Patient is hungry but lunch comes in 30 minutes. No distress observed. Continue to monitor.
--- NOTE | 2019-08-07 14:56 | NUR ---
Patient sleeping on left side. No distress observed. Continue to monitor.
--- NOTE | 2019-08-07 17:20 | NUR ---
Patient sitting on a chair by his be and is very talkative. No distress observed. Continue to monitor.
[2019-08-07] MEDS: lithium carbonate 150mg capsule PO SCH (20:24)
[2019-08-07] MEDS: olanzapine 10mg tablet PO SCH (20:24)
[2019-08-07] MEDS: famotidine 20mg tablet PO SCH (20:24)
--- NOTE | 2019-08-07 20:39 | NUR ---
PT RESTLESS. GETTING OUT OF HIS CHAIR ABOUT EVERY 15 MIN TO STAND, REQUESTING TO PACE AROUND HIS AREA, REQUESTING COFFEE AND SWEETS, REQUESTING HIS NOCITINE LOZENGES (THAT ARE IN HIS BELONGINGS). I UPDATED PT THAT WHEN I HAVE A CHANGE I WILL ASK MD FOR PRN NICOTINE LOZENGE. LET HIM KNOW THAT WE PREFER NOT TO GIVE ANY CAFFINATE DRINKS IN THE EVENING. PT STATES HE IS GETTING [facility] OF THE HOSPITAL FOOD AND REQUESTS PBJ AND CHIPS AND JELLO FOR LUNCH AND DINNER TOMORROW. I TOLD THIS IS A REQSONABLE REQUEST AND I WILL PLACE IT TO DIETARY. PT IS COOPERATIVE AND ORIENTED. PT INITIALLY REPORTED TO RN JULISSA, WHO WAS GIVING HIS KATLIN MEDS, THAT HE DID NOT WANT TO TAKE THEM. AFTER SHE SPOKE WITH HIM, HE TOOK ALL EVENING MEDS WITH NO ISSUES. PT SITTINGIN HIS CHAIR READING MAGAZINE. PT STATED, WHY CANT I JUST GO UPSTAIRS AND WATCH TV, THAD BEEN HERE FOR 2 WEEKS NOW. I EXPLAINED THAT THE ER RNS AND MDS ARE NOT INVOLVED IN HIS PLACEMENT AND THIS IS SOMETHING TO DISCUSS WITH MENTAL HEALTH STAFF. I UPDATED HIM THAT HE HAS NOT BEEN ACCEPTED ANYWHERE FAR MY REPORT. I TOLD HIM I WILL LEAVE MESSAGE FOR DAY RN TO [facility] TO UPDATE PT ON STATUS. PT AGREEABLE TO THIS.
--- NOTE | 2019-08-07 21:07 | NUR ---
Pt up to BR for 3rd time in one hour. Requesting something sweet and given alma crackers. Pt then ate crackers and currently lying on his left side in the bed with blankets covering to his shouders.
--- NOTE | 2019-08-08 00:15 | NUR ---
Pt sleeping at this time. lying on his left side. appears to be in no distress.
--- NOTE | 2019-08-08 02:49 | NUR ---
Pt remains asleep, snoring. Lying on his back with blankets covering to his shouders. Cheryle and RN within line of sight aat.
--- NOTE | 2019-08-08 03:40 | NUR ---
Pt up to BR to void. Ambulating with steady gait. Given adtl water per request. Now back in bed, lying on his right side, with eyes closed and blankets covering to his shoulders.
--- NOTE | 2019-08-08 05:54 | NUR ---
Pt remains asleep.
[2019-08-08] MEDS: LORazepam 1 MG tablet PO SCH ×2 (08:16→19:31)
[2019-08-08] MEDS: quetiapine 100mg tablet PO SCH ×2 (08:16→20:27)
[2019-08-08] MEDS: NICOTINE POLACRILEX 2 MG LOZENGE BC PRN (10:12)
--- NOTE | 2019-08-08 19:40 | NUR ---
[facility] SITTER ESCORTING PATIENT FOR SHOWER WITH SECURITY
--- NOTE | 2019-08-08 19:56 | NUR ---
patient back from shower patient was cooperative during the hole time while showering per Vahid knox"
[2019-08-08] MEDS: famotidine 20mg tablet PO SCH (20:26)
[2019-08-08] MEDS: olanzapine 10mg tablet PO SCH (20:27)
[2019-08-08] MEDS: lithium carbonate 150mg capsule PO SCH (20:27)
--- NOTE | 2019-08-08 21:56 | NUR ---
PATIENT IN BED EYES CLOSED COVERS ON RR EVEN UN LABORED NO OBSERVABLE S/S OF ACUTE STRESS AT THIS TIMW WILL CONTINUE TO MONITOR
--- NOTE | 2019-08-08 23:43 | NUR ---
PATIENT AWAKE ASKING FOR SOME SALTINE CRACKERS AND "FRESH WATER." PROVIDED PATIENT WITH REQUEST, PATIENT COOPERATIVE WITH A THANKYOU, AND BACK IN BED COVERS ON EYES CLOSED RR EVEN UN LABORED NO OBSERVABLE S/S OF ACUTE STRESS AT THIS TIME WILL CONTINUE TO MONITOR
--- NOTE | 2019-08-09 01:45 | NUR ---
PATIENT LYING ON LEFT SIDE IN BED COVERS ON EYES CLOSED RR EVEN UN LABORED NO OBSERVABLE S/S OF ACUTE STRESS AT THIS TIME
--- NOTE | 2019-08-09 03:31 | NUR ---
patient in bed covers on sleeping prone rr even un labored no observable s/s of acute stress at this time will continue to monitor
--- NOTE | 2019-08-09 05:19 | NUR ---
patient in bed lying on right side covers on eyes closed rr even un labored no observable s/s of acute stress at this time will continue to monitor
--- NOTE | 2019-08-09 06:00 | NUR ---
asleep no concerns
--- NOTE | 2019-08-09 06:19 | NUR ---
SBAR TO SHELLI CABALLERO NO QUESTIONS OR CONCERNS AFTER ASSUMING CARE
--- NOTE | 2019-08-09 07:00 | NUR ---
asleep no concerns
--- NOTE | 2019-08-09 08:00 | NUR ---
in chair no concerns
[2019-08-09] MEDS: quetiapine 100mg tablet PO SCH ×2 (08:15→20:07)
[2019-08-09] MEDS: LORazepam 1 MG tablet PO SCH ×2 (08:15→20:08)
--- NOTE | 2019-08-09 09:00 | NUR ---
in chair no concerns
--- NOTE | 2019-08-09 10:00 | NUR ---
in chair no concerns
--- NOTE | 2019-08-09 11:00 | NUR ---
in chair no concerns
--- NOTE | 2019-08-09 12:00 | NUR ---
in chair no concerns
--- NOTE | 2019-08-09 14:00 | NUR ---
Sitting in chair no concerns
--- NOTE | 2019-08-09 15:00 | NUR ---
Sitting in chair no concerns
--- NOTE | 2019-08-09 16:00 | NUR ---
Sitting in chair no concerns
--- NOTE | 2019-08-09 17:00 | NUR ---
Sitting in chair no concerns
--- NOTE | 2019-08-09 18:30 | NUR ---
Patient sitting at bedside eating snacks. He is well oriented, cooperative with staff, mildly delusional. Occasionaly talking to someone not there. Patient decribes occasional visual hallucinations, "like there is a hole in the wall." The patient is goal oriented to leave the department, he does understand that he is likely to be placed, possibly at [facility].
[2019-08-09] MEDS: NICOTINE POLACRILEX 2 MG LOZENGE BC PRN (20:05)
[2019-08-09] MEDS: acetaminophen 325mg tablet PO PRN (20:07)
[2019-08-09] MEDS: lithium carbonate 150mg capsule PO SCH (20:08)
[2019-08-09] MEDS: famotidine 20mg tablet PO SCH (20:08)
[2019-08-09] MEDS: olanzapine 10mg tablet PO SCH (20:09)
--- NOTE | 2019-08-09 20:12 | NUR ---
Patient sitting on chair at bedside. He is cooperative with staff. Patient is responding to some internal stimuli. Patient is in direct view from nursing station. APAP was given PRN for tooth pain. A nicotine lozenge was given PRN for his tobacco craving.
--- NOTE | 2019-08-09 21:00 | NUR ---
Patient is cooperative, he prefers to get out of bed and pace on occasion. He has consumed approximately 2 litres of H20 this evening. Patient advised that we will be slowing his intake as he always wants to consume more. Patient ate 100 percent of his dinner and multible packs of crackers.
--- NOTE | 2019-08-09 21:05 | NUR ---
Patient sleeping now in short naps. In view from nursing station.
[2019-08-09] MEDS: temazepam 15mg capsule PO PRN (21:18)
[2019-08-09] MEDS: diphenhydrAMINE 25mg capsule PO PRN (21:18)
--- NOTE | 2019-08-09 23:04 | NUR ---
Patient sleeping now in supine position. Patient has been medication compliant.
--- NOTE | 2019-08-09 23:50 | NUR ---
Patient ambulated to bathroom to void. He washed his hands afterwards and returned to sleep.
--- NOTE | 2019-08-10 01:50 | NUR ---
Patient sleeping supine in low fowlers position.
--- NOTE | 2019-08-10 03:04 | NUR ---
Patient sleeping quietly low fowlers and on his right side.
--- NOTE | 2019-08-10 04:00 | NUR ---
Patient sleeping on left side. No distress.
--- NOTE | 2019-08-10 05:05 | NUR ---
Patient sleeping quietly on left side. In view from nursing station.
[2019-08-10] MEDS: LORazepam 1 MG tablet PO SCH ×2 (08:00→19:54)
[2019-08-10] MEDS: quetiapine 100mg tablet PO SCH ×2 (08:00→19:56)
[2019-08-10] MEDS: NICOTINE POLACRILEX 2 MG LOZENGE BC PRN (12:04)
--- NOTE | 2019-08-10 12:43 | NUR ---
relieving RN for break, pt is resting quietly on [facility] waiting for lunch
--- NOTE | 2019-08-10 18:30 | NUR ---
Assumed care of patient, pt. sitting up eating dinner at this time, appears calm and cooperative.
[2019-08-10] MEDS: lithium carbonate 150mg capsule PO SCH (19:56)
[2019-08-10] MEDS: famotidine 20mg tablet PO SCH (19:56)
[2019-08-10] MEDS: olanzapine 10mg tablet PO SCH (19:57)
--- NOTE | 2019-08-10 20:30 | NUR ---
Nursing Note: Attempted to complete 1:1 at bedside, pt. presents as guarded, hypervigilant, and with a disorganized thought process. He denies any S/I, H/I, or A/V/FERREIRA, however he does appear to be internally preoccupied at times AEB laughing to himself occasionally. When questioned by this health underwriter, pt. makes the paranoid delusional statement, "I'm not going to tell you guys my business, you might follow me." He remains calm and redirectable.
--- NOTE | 2019-08-10 22:30 | NUR ---
Pt. laying in bed at this time, occassionally laughs to himself as if he may be responding to internal stimuli. Remains calm and redirectable, will continue to monitor.
[2019-08-10] MEDS: temazepam 15mg capsule PO PRN (23:03)
--- NOTE | 2019-08-10 23:05 | NUR ---
Pt. awake, requested PRN Temazepam to help him sleep, however refused to take medication upon administration. Will continue to monitor.
--- NOTE | 2019-08-11 00:27 | NUR ---
Pt. sleeping at this time, laying on his left side, rr even and unlabored.
--- NOTE | 2019-08-11 02:37 | NUR ---
Pt. continues to sleep, rr even and unlabored, appears to be resting comfortably.
--- NOTE | 2019-08-11 04:36 | NUR ---
Pt. continues to sleep, laying on left side, makes occasional body adjustments.
--- NOTE | 2019-08-11 06:00 | NUR ---
Pt. laying in bed at this time, calm, rr even and unlabored.
[2019-08-11] MEDS: quetiapine 100mg tablet PO SCH ×2 (08:00→20:23)
[2019-08-11] MEDS: LORazepam 1 MG tablet PO SCH ×2 (08:00→20:22)
--- NOTE | 2019-08-11 18:59 | NUR ---
The patient is current sitting up in a chair next to his bed. He has been talking to himself and repeatedly asking for more snacks and coffee. He is in direct line of sight of the nursing station, denies pain or distress.
[2019-08-11] MEDS: lithium carbonate 150mg capsule PO SCH (20:22)
[2019-08-11] MEDS: olanzapine 10mg tablet PO SCH (20:22)
[2019-08-11] MEDS: famotidine 20mg tablet PO SCH (20:22)
--- NOTE | 2019-08-11 20:33 | NUR ---
The patient is sitting up in a chair by his bed. He just took all of his night time medications. He is compliant with care and very talkative this evening. He is talking to staff as well as talking to himself. He denies pain or discomfort and is in direct line of sight of the nursing station.
--- NOTE | 2019-08-11 22:15 | NUR ---
The patient is currently sleeping on his back with visible respirations. He does not show sign of distress or discomfort at this time. He is in direct line of sight of the nursing station.
--- NOTE | 2019-08-11 23:43 | NUR ---
Currently the patient is sleeping on right side with visible respirations. He does not show sign of pain or discomfort. He is in direct line of sight of the nursing station.
--- NOTE | 2019-08-12 01:40 | NUR ---
The patient is currently lying in bed on left side with visible respirations. He does not show sign of distress or discomfort. He is in direct line of sight of the nursing station.
--- NOTE | 2019-08-12 03:38 | NUR ---
The patient is currently lying on his back sleeping with visible respirations. He is in direct line of sight of the nursing station and does not show sign of pain or discomfort.
--- NOTE | 2019-08-12 05:45 | NUR ---
Pt is currently sleeping on his left side with visible respirations. He does not show sign of pain or distress. He is direct line of sight of the nursing station.
--- NOTE | 2019-08-12 07:00 | NUR ---
pt is resting in his room. no medical concerns at this time.
--- NOTE | 2019-08-12 08:00 | NUR ---
pt is eating breakfast
[2019-08-12] MEDS: quetiapine 100mg tablet PO SCH ×2 (08:59→20:51)
[2019-08-12] MEDS: LORazepam 1 MG tablet PO SCH ×2 (09:00→20:50)
--- NOTE | 2019-08-12 09:00 | NUR ---
pt is resting in his room. no medical concerns at this time.
--- NOTE | 2019-08-12 10:00 | NUR ---
pt is resting in his room. no medical concerns at this time.
--- NOTE | 2019-08-12 11:00 | NUR ---
pt is resting in his room. no medical concerns at this time.
--- NOTE | 2019-08-12 12:00 | NUR ---
pt resting in his room
--- NOTE | 2019-08-12 13:00 | NUR ---
pt resting in his room
--- NOTE | 2019-08-12 14:00 | NUR ---
pt resting in his room
--- NOTE | 2019-08-12 15:00 | NUR ---
pt resting in his room
--- NOTE | 2019-08-12 16:00 | NUR ---
pt resting in his room
--- NOTE | 2019-08-12 17:00 | NUR ---
pt resting in his room
[2019-08-12] MEDS: olanzapine 10mg tablet PO SCH (20:49)
[2019-08-12] MEDS: lithium carbonate 150mg capsule PO SCH (20:49)
[2019-08-12] MEDS: famotidine 20mg tablet PO SCH (20:51)
--- NOTE | 2019-08-13 00:10 | NUR ---
pt sleeping on right side resp unlabored will continue to monitor and reassess
--- NOTE | 2019-08-13 07:00 | NUR ---
pt resting no change
--- NOTE | 2019-08-13 08:00 | NUR ---
pt resting no change
[2019-08-13] MEDS: LORazepam 1 MG tablet PO SCH ×2 (08:06→20:42)
[2019-08-13] MEDS: quetiapine 100mg tablet PO SCH ×2 (08:06→20:42)
--- NOTE | 2019-08-13 09:00 | NUR ---
pt resting no change
--- NOTE | 2019-08-13 10:00 | NUR ---
pt resting no change
--- NOTE | 2019-08-13 11:00 | NUR ---
pt resting no change
--- NOTE | 2019-08-13 12:01 | NUR ---
pt resting no change
--- NOTE | 2019-08-13 13:00 | NUR ---
pt eat lunch
--- NOTE | 2019-08-13 14:00 | NUR ---
pt resting no change
--- NOTE | 2019-08-13 15:00 | NUR ---
pt resting no change
--- NOTE | 2019-08-13 19:25 | NUR ---
Patient sitting at bedside. Patient is well oriented. Patient exhibits anxiety, he makes demands for foo9d. Patient denies S/I or H/I at this time. This patient does not look to be responding to internal stimuli. The patient consumed his whole dinner. In addition, patient has had crackers on two occasions.
--- NOTE | 2019-08-13 20:30 | NUR ---
Patient exhibits mild anxiety. He is resting at bedside, in view from nursing station.
[2019-08-13] MEDS: olanzapine 10mg tablet PO SCH (20:39)
[2019-08-13] MEDS: diphenhydrAMINE 25mg capsule PO PRN (20:40)
[2019-08-13] MEDS: lithium carbonate 150mg capsule PO SCH (20:40)
[2019-08-13] MEDS: famotidine 20mg tablet PO SCH (20:42)
[2019-08-13] MEDS: NICOTINE POLACRILEX 2 MG LOZENGE BC PRN (20:45)
--- NOTE | 2019-08-13 21:40 | NUR ---
Patient is low fowlers position in bed. He is resting quietly, patient was compliant with his nightime medications.
--- NOTE | 2019-08-13 22:35 | NUR ---
Patient sleeping quietly on his right side.
--- NOTE | 2019-08-14 00:10 | NUR ---
Patient sleeping quietlyl on his right side in bed.
--- NOTE | 2019-08-14 02:06 | NUR ---
Patient sleeping mid fowlers position in bed.
--- NOTE | 2019-08-14 06:15 | NUR ---
Patient is awake now and sitting at bedside. Patient is cooperative and rested. Patient given fresh water. He is awating breakfast.
--- NOTE | 2019-08-14 06:54 | NUR ---
Patient appears to be sleeping supine. No distress observed. Continue to monitor.
--- NOTE | 2019-08-14 08:15 | NUR ---
Patient continues to sleep on left side. No distress observed. Continue to monitor.
--- NOTE | 2019-08-14 08:53 | NUR ---
up to chair by bedside eating breakfast.
[2019-08-14] MEDS: LORazepam 1 MG tablet PO SCH ×2 (09:15→20:13)
[2019-08-14] MEDS: quetiapine 100mg tablet PO SCH ×2 (09:16→20:15)
--- NOTE | 2019-08-14 10:15 | NUR ---
Patient up standing by his room. Patient complaining of being bored and wants to be transferred. Patient called his conservator. Patient left a message. Patient needs help paying his car payment. Patient offered a book to read but patient declined. Patient also c/o a stuffy nose since the sports book writer was cleaning in [facility]. RN offered patient some Benadryl, but patient also declined. Continue to monitor.
[2019-08-14] MEDS: NICOTINE POLACRILEX 2 MG LOZENGE BC PRN ×2 (11:11→15:49)
--- NOTE | 2019-08-14 12:35 | NUR ---
Patient awake and sitting by his bed. Patient called his conservator and left a message to call him back. Patient is upset that he is still here but still actions appropriately. Continue to monitor.
--- NOTE | 2019-08-14 13:15 | NUR ---
Patient eating breakfast. No distress observed. Continue to monitor.
--- NOTE | 2019-08-14 15:15 | NUR ---
Patient called his conservator again asking to be released from his Conservatorhip. Patient wants to go live with his grandmother until he can get money and live in his car. Continue to monitor.
--- NOTE | 2019-08-14 15:37 | NUR ---
Patient sitting in his chair in front of his bed. Patient has been observed speaking to someone and laughing, but nobody is infront of him. Patient appears to be responding to internal stimuli. Continue to monitor.
--- NOTE | 2019-08-14 18:45 | NUR ---
Patient is awake and well oriented. He is sitting at bedside. Patient denies S/I, H/I, or hallucinations. This patient is frequently requesting water to drink. The patient is requesting multible snacks. The patient was redirected to slow his water intake. This patients voice is loud at time times, he does make direct eye contact.
--- NOTE | 2019-08-14 19:40 | NUR ---
Patient has eaten a full dinner, he still requests additional snacks. Addendum: 08/15/19 at 0206 by SHIN Patient sitting at bedside, eating additional snacks. Patient occasionally responds to internal stimuli.
[2019-08-14] MEDS: famotidine 20mg tablet PO SCH (20:13)
[2019-08-14] MEDS: olanzapine 10mg tablet PO SCH (20:13)
[2019-08-14] MEDS: lithium carbonate 150mg capsule PO SCH (20:16)
--- NOTE | 2019-08-14 20:19 | NUR ---
patient wondering and is observably anxious, provided patient with HS medication to help reduce patients anxiety will continue to monitor
--- NOTE | 2019-08-15 00:07 | NUR ---
pt observed resting calmly on back with eyes closed. respirations WNL
--- NOTE | 2019-08-15 00:21 | NUR ---
Freda argueta in [facility] - 08/15/19 at 0023 by SHIN Patient is awake and restless in bed.
--- NOTE | 2019-08-15 01:43 | NUR ---
Patient sleeping on his left side in bed.
--- NOTE | 2019-08-15 03:00 | NUR ---
Patient awake, he was given warm blankets, returned to sleep.
--- NOTE | 2019-08-15 04:28 | NUR ---
Patient resting quietly, no distress.
--- NOTE | 2019-08-15 06:10 | NUR ---
Patient sleeping well. Patient has repositioned self throughout the night. Low fowlers position now.
--- NOTE | 2019-08-15 06:53 | NUR ---
Patient sleepin on right side. No distress observed. Continue to monitor.
--- NOTE | 2019-08-15 08:05 | NUR ---
Patient sleeping prone with No distress observed. RN awoke patient for lunch and patient got up. No distress observed. Continue to monitor.
[2019-08-15] MEDS: quetiapine 100mg tablet PO SCH ×2 (08:34→20:07)
[2019-08-15] MEDS: LORazepam 1 MG tablet PO SCH ×2 (08:35→20:07)
--- NOTE | 2019-08-15 09:55 | NUR ---
Patient up and down going to the bathroom, sitting by his bed. No distress observed. Continue to monitor.
--- NOTE | 2019-08-15 12:00 | NUR ---
Patient sitting at his chair by his bed making small talk with staff. No distress observed. Continue to monitor.
--- NOTE | 2019-08-15 13:10 | NUR ---
Patient eating lunch. No distress observed. Continue to monitor.
--- NOTE | 2019-08-15 15:56 | NUR ---
Patient sitting in his chair reading. No distress observed. Continue to monitor.
--- NOTE | 2019-08-15 18:47 | NUR ---
One to one with the patient to assess severity of mental heatlh symptoms. The patient has been in the ER for several weeks waiting for placement. He is currently on conservatorship. He described his mood as "pleasant" and denies any depression. When asked if he felt anxious he stated, "No just pleasant, good natured" He denies and auditory or visual hallucinations but can be heard talking and laughing to himself. He denies thoughts to harm himself or others. When asked what his discharge plan was he stated "I'm [facility] a [facility], , [facility]" but then talked about going to [place]. He doesn't seem to understand that he is on conservatorship. His appetite is increased and he states he feels like he has to eat all the time. He has been very cooperative with nursing staff. No aggressive or threatening behaviors observed.
[2019-08-15] MEDS: famotidine 20mg tablet PO SCH (20:07)
[2019-08-15] MEDS: lithium carbonate 150mg capsule PO SCH (20:07)
[2019-08-15] MEDS: olanzapine 10mg tablet PO SCH (20:07)
--- NOTE | 2019-08-15 21:26 | NUR ---
The patient is sittingin a chair at the bedside. He has been laughing and talking to himself. He reported that he has really good hearing and can talk with people "way out in [place]"
--- NOTE | 2019-08-15 22:52 | NUR ---
The patient is sitting in his chair. He declined offer of sleep med.
--- NOTE | 2019-08-16 00:28 | NUR ---
The patient sitting up in the chair and appeared tired. He is talking to himself periodically but less than earlier in the evening. He accepted direction to lay down and try and sleep
--- NOTE | 2019-08-16 03:00 | NUR ---
The patient appears to be sleeping
--- NOTE | 2019-08-16 04:38 | NUR ---
The patient continues to sleep.
--- NOTE | 2019-08-16 06:22 | NUR ---
Patient is sleeping on right side. Respirations are even and nonlabored.
--- NOTE | 2019-08-16 08:07 | NUR ---
Patient continues to sleep.
[2019-08-16] MEDS: quetiapine 100mg tablet PO SCH ×2 (08:28→20:32)
[2019-08-16] MEDS: LORazepam 1 MG tablet PO SCH ×2 (08:28→20:31)
--- NOTE | 2019-08-16 09:48 | NUR ---
Patient sitting in chair at bedside. Pt. ate 100% of breakfast. Requesting additional milk, coffee. States that he does not want to be here anymore. Recommended that patient contact his conservator to find out updates on status.
--- NOTE | 2019-08-16 11:19 | NUR ---
Patient requesting to go for a shower. Will arrange for 2:00 with [facility]. Now visiting with patient in next bed.
--- NOTE | 2019-08-16 12:19 | NUR ---
Britni from [facility] and [facility] [place] is interested in reviewing his packet. Pt. sitting in chair, restless, fidgety. Awaiting lunch.
--- NOTE | 2019-08-16 13:36 | NUR ---
pt is asking for more food such as cakes with his lunch, pt was advised that there will be another dessert provided on the evening meal tray. pt was starting to raise his voice stating that the staff were yelling at him. he was asvised that no one here other than himself were raising their voices, was also advised that he needed to lower his voice and not work up all of the other pt's, he did comply.
--- NOTE | 2019-08-16 14:15 | NUR ---
Patient's grandparents are visiting at bedside.
--- NOTE | 2019-08-16 16:04 | NUR ---
Pt. ate snack and up to the bathroom. No behavioral issues at this time.
[2019-08-16] MEDS: NICOTINE POLACRILEX 2 MG LOZENGE BC PRN (19:11)
--- NOTE | 2019-08-16 19:13 | NUR ---
Patient is awake and sitting at bedside. He complains of some anxiety. He continues to request lots of water. Patient advised of water limitations secondary to water intoxication risk. Patient given a nicotine lozenge for his cigarette cravings.
--- NOTE | 2019-08-16 19:38 | NUR ---
Patient denies S/I or H/I. He is responding now to some internal stimuli, laughing for no particular reason. Patient is sitting at bedside and cooperative.
--- NOTE | 2019-08-16 20:05 | NUR ---
Patient sitting at bedside. He exhibits mild anxiety. Patient gets up intermittently and paces rapidly to the restroom. Patient redirected with success. Patient exhibits understanding.
[2019-08-16] MEDS: famotidine 20mg tablet PO SCH (20:33)
[2019-08-16] MEDS: temazepam 15mg capsule PO PRN (20:33)
[2019-08-16] MEDS: lithium carbonate 150mg capsule PO SCH (20:33)
[2019-08-16] MEDS: olanzapine 10mg tablet PO SCH (20:34)
--- NOTE | 2019-08-16 21:40 | NUR ---
Patient is medication compliant, he is now low fowlers in bed resting.
--- NOTE | 2019-08-16 22:56 | NUR ---
Patient is sleeping quietly on his right side.
--- NOTE | 2019-08-17 00:50 | NUR ---
Patient sleeping quietly, low fowlers position on his right side.
--- NOTE | 2019-08-17 02:03 | NUR ---
Patient is sleeping on his back, he repositions self.
--- NOTE | 2019-08-17 03:12 | NUR ---
Patient in supine position, sleeping quietly.
--- NOTE | 2019-08-17 04:56 | NUR ---
Patient sleeping quietly in low fowlers position.
--- NOTE | 2019-08-17 06:04 | NUR ---
Patient is supine in bed sleeping quietly.
--- NOTE | 2019-08-17 07:12 | NUR ---
Patient sleeping supine in bed, respirations are even and nonlabored.
[2019-08-17] MEDS: LORazepam 1 MG tablet PO SCH ×2 (08:00→20:15)
[2019-08-17] MEDS: quetiapine 100mg tablet PO SCH ×2 (08:00→20:16)
--- NOTE | 2019-08-17 08:14 | NUR ---
Pt. up to the restroom, now eating breakfast. Patient is tired from [facility] and states he has a headache from it. Wants to wait for a.m. meds.
[2019-08-17] MEDS: acetaminophen 325mg tablet PO PRN (08:19)
--- NOTE | 2019-08-17 08:25 | NUR ---
Patient complains of 10/10 pain, headache, Tylenol administered.
[2019-08-17] MEDS: ibuprofen tablet 400 MG TABLET PO PRN (09:13)
[2019-08-17] MEDS: NICOTINE POLACRILEX 2 MG LOZENGE BC PRN (09:14)
--- NOTE | 2019-08-17 09:42 | NUR ---
breaking Primary RN, pt is sitting in a chair at foot of bed, talking with tech, calm, no agitation observed
--- NOTE | 2019-08-17 09:43 | NUR ---
breaking primary RN, pt awake, aware and sitting in chair at the foot of his bed, no agitation
--- NOTE | 2019-08-17 10:10 | NUR ---
Patient went to X-ray with security and X -ray tech.
--- NOTE | 2019-08-17 10:11 | NUR ---
Patient now back to his bed from X-ray.
--- NOTE | 2019-08-17 10:44 | NUR ---
Patient drank 3 pitchers of water, making trips back and forth to bathroom. No behavioral issues.
--- NOTE | 2019-08-17 10:52 | NUR ---
primary rn was sent on break. pt sitting on the end of his bed quietly.
--- NOTE | 2019-08-17 11:04 | NUR ---
PT CXR FAXED TO [facility].
--- NOTE | 2019-08-17 12:22 | NUR ---
Patient sitting in chair at bedside, awaiting lunch. No S/S of distress.
--- NOTE | 2019-08-17 14:07 | NUR ---
Patient taken upstairs to [facility] for shower with Patrick PATTERSON and senior security architect.
--- NOTE | 2019-08-17 16:25 | NUR ---
Patient pacing hallways talking on telephone. No behavioral problems.
--- NOTE | 2019-08-17 18:49 | NUR ---
Patient is sitting up at bedside. He is calm and well oriented. He makes direct eye contact. His voice is normal, good rate and rhythm. Patient is well groomed wearing green scrubs. He ate his full dinner. Patient states he had a BM today, it was normal. Patient denies S/I or H/I, he does hear some boices. "The voices are not bad, mostly family and friends from high school." Patient is cooperative with staff. He is in direct view from the nursing station.
--- NOTE | 2019-08-17 19:38 | NUR ---
Patient is sitting at bedside, he is quietly reading a book.
[2019-08-17] MEDS: famotidine 20mg tablet PO SCH (20:16)
[2019-08-17] MEDS: olanzapine 10mg tablet PO SCH (20:16)
[2019-08-17] MEDS: lithium carbonate 150mg capsule PO SCH (20:16)
--- NOTE | 2019-08-17 20:23 | NUR ---
Patient is sitting at bedside, he states he will do a little more reading before he retires to sleep. This patient is in direct view from the nursing station.
--- NOTE | 2019-08-17 21:55 | NUR ---
Patient is sitting upright on the side of the bed with his feet on the floor.
--- NOTE | 2019-08-17 23:26 | NUR ---
Patient awoke, complains of dry mouth. Patient given ice with a half cup of H20.
--- NOTE | 2019-08-18 01:05 | NUR ---
Patient is sleeping prone in bed.
--- NOTE | 2019-08-18 03:16 | NUR ---
Patient sleeping on his left side, in view from nursing station.
--- NOTE | 2019-08-18 05:00 | NUR ---
Patlient sleeping on his left side, now being awoken for vital signs.
--- NOTE | 2019-08-18 06:38 | NUR ---
Patent sleeping prone/left side. No distress observed. Continue to monitor.
[2019-08-18] MEDS: quetiapine 100mg tablet PO SCH ×2 (08:20→20:07)
[2019-08-18] MEDS: LORazepam 1 MG tablet PO SCH ×2 (08:20→20:07)
--- NOTE | 2019-08-18 08:33 | NUR ---
Patient sitting up and eating. No distress observed. Continue to monitor.
--- NOTE | 2019-08-18 10:10 | NUR ---
Patient sitting in chair by bed. Patient is bored. No distress observed at this time. Continue to monitor.
--- NOTE | 2019-08-18 11:55 | NUR ---
Patient ambulatory to BR, steady gait,. Continue to monitor.
--- NOTE | 2019-08-18 13:15 | NUR ---
Patient eating lunch. No distress observed. Continue to monitor.
--- NOTE | 2019-08-18 15:03 | NUR ---
Patient sitting at chair in front of his bed. RN offered patient a book. Patient
--- NOTE | 2019-08-18 16:50 | NUR ---
Patient eating a snack at bedside. No distress observed. Continue to monitor.
[2019-08-18] MEDS: famotidine 20mg tablet PO SCH (20:06)
[2019-08-18] MEDS: olanzapine 10mg tablet PO SCH (20:07)
[2019-08-18] MEDS: lithium carbonate 150mg capsule PO SCH (20:08)
--- NOTE | 2019-08-18 20:55 | NUR ---
pt is sleeping, no s/s of distress noted. rr unlabored.
[2019-08-18] MEDS: diphenhydrAMINE 25mg capsule PO PRN (21:43)
--- NOTE | 2019-08-18 22:43 | NUR ---
pt is sleeping, no s/s of distress noted. rr unlabored.
--- NOTE | 2019-08-19 00:21 | NUR ---
pt continues to sleep, rr even and unlabored.
--- NOTE | 2019-08-19 03:01 | NUR ---
pt appears to be asleep, no s/s of distress noted.
--- NOTE | 2019-08-19 05:57 | NUR ---
pt appears to be asleep, no s/s of distress noted.
--- NOTE | 2019-08-19 07:00 | NUR ---
pt is sleeping at this time
--- NOTE | 2019-08-19 08:00 | NUR ---
pt awake and eating breakfast
[2019-08-19] MEDS: LORazepam 1 MG tablet PO SCH ×2 (08:26→20:19)
[2019-08-19] MEDS: quetiapine 100mg tablet PO SCH ×2 (08:26→20:19)
--- NOTE | 2019-08-19 09:00 | NUR ---
pt awake. pt asked to use the phone to call his father
--- NOTE | 2019-08-19 10:00 | NUR ---
pt asking when he will be released. asking if [facility] can go to [facility] in [place]
--- NOTE | 2019-08-19 11:00 | NUR ---
pt is asking staff when he can leave. asking to call multiple family members.
--- NOTE | 2019-08-19 12:00 | NUR ---
pt is eating lunch. is asking for a second tray and for cake
--- NOTE | 2019-08-19 13:00 | NUR ---
pt is sitting in his chair. states he needs to go outside and asking if he can go to the [facility] in [place]. does not seem to remember the conversation we had 2 hrs ago were he was told no he cant go to mission and he is waiting placement.
--- NOTE | 2019-08-19 15:00 | NUR ---
pt is sleeping
--- NOTE | 2019-08-19 16:00 | NUR ---
pt states he want 2 trays for dinner and he wants cake
--- NOTE | 2019-08-19 17:00 | NUR ---
pt is resting in bed
--- NOTE | 2019-08-19 18:00 | NUR ---
pt is laying in bed. his eyes are open. he states he is very bored and wants to leave
--- NOTE | 2019-08-19 20:01 | NUR ---
in OF at this time. Made aware of pt. increased intake of water/thirst. N.O. received to draw BMP and lithium levels.
[2019-08-19] MEDS: famotidine 20mg tablet PO SCH (20:20)
[2019-08-19] MEDS: olanzapine 10mg tablet PO SCH (20:20)
[2019-08-19 20:39] LABS: ALBUMIN 4.1 G/DL (3.4-5.0); ANION GAP 6 (8-16); BLOOD UREA NITROGEN 14 MG/DL (7-18); CALCIUM 9.4 MG/DL (8.5-10.1); CHLORIDE 105 MMOL/L (99-107); GLUCOSE 127 MG/DL (70-104); POTASSIUM 3.9 MMOL/L (3.5-5.1); SODIUM 138 MMOL/L (135-145); TOTAL CARBON DIOXIDE 27.1 MMOL/L (24-32); eGFR 90 ML/MIN
[2019-08-19] MEDS: lithium carbonate 150mg capsule PO SCH (21:14)
--- NOTE | 2019-08-20 03:30 | NUR ---
Spoke with re lab results. MD to review current orders.
--- NOTE | 2019-08-20 06:22 | NUR ---
RECEIVED SBAR REPORT FROM MERY CABALLERO, PT AMBULATORY TO NURSES STATION TO ASK FOR WATER, PITCHER OF ICE WATER GIVEN TO PT BY ELIZA SEGURA. PT IS NOW BACK IN BED LYING ON RIGHT SIDE, NO S/S OF DISTRESS, DISCOMFORT OR AGITATION AT THIS TIME. PT IN LINE OF SITE OF NURSES STATION FEDERICO MOSER, BLESSING [place] AND [place].
--- NOTE | 2019-08-20 06:34 | NUR ---
DR GUSTAFSON TO NURSES STATION GAVE VERBAL ORDER TO GIVE PT 300MG LITHIUM EVERY MORNING, DR GUSTAFSON AWARE PT CURRENT LITHIUM DOSE IS 900MG HS
--- NOTE | 2019-08-20 07:31 | NUR ---
PT IS AWAKE WALKED TO MIRROR ON CEILING TO COMB HAIR AND THEN WALKED BACK TO BED 20
[2019-08-20] MEDS: quetiapine 100mg tablet PO SCH ×2 (08:13→20:35)
[2019-08-20] MEDS: LORazepam 1 MG tablet PO SCH ×2 (08:13→20:38)
[2019-08-20] MEDS: lithium carbonate 150mg capsule PO SCH ×2 (08:14→20:34)
--- NOTE | 2019-08-20 08:55 | NUR ---
CALLED [facility] OFFICE SPOKE WITH DINO LUCIANO TO BE EVALUATED BY PSYNERGY THIS WEEK FOR PLACEMENT, THIS IS A PERMANENT PLACEMENT FACILITY.
--- NOTE | 2019-08-20 09:20 | NUR ---
DR HUNT GIVE BRIEF UPDATE/REPORT ON PT STATUS, DR HUNT TO EVALUATE PT.
--- NOTE | 2019-08-20 10:52 | NUR ---
PT IS SLEEPING, RESPIRATIONS SPONTANEOUS, EVEN AND UNLABORED, NO S/S OF DISTRESS, DISCOMFORT OR AGITATION AT THIS TIME, PT IN LINE OF SITE OF NURSES STATION VISIBLE TO FEDERICO MOSER AND BLESSING PAGE.
--- NOTE | 2019-08-20 13:00 | NUR ---
LUNCH TRAY PLACED AT BEDSIDE, PT SITTING UP EATING NOW.
--- NOTE | 2019-08-20 13:50 | NUR ---
JESUS ALBERTO CABALLERO RECEIVED CALL FROM [facility] OFFICE REPORTING PSYNERGY WILL BE HERE TOMORROW TO EVALUATE PT, UNKNOWN TIME.
--- NOTE | 2019-08-20 17:38 | NUR ---
PT SITTING UP TALKING TO STAFF AND SELF, PT ASKED FOR ATIVAN, INFORMED ATIVAN SCHEDULED FOR 1999, PT AGREEABLE TO GETTING ATIVAN LATER TONIGHT.
--- NOTE | 2019-08-20 19:23 | NUR ---
Patient sitting at bedside. He has been given a half a pitcher of ice and water. He will get 1 cup of decaffinated coffee and some crackers. Patient denies S/I or H/I, he denies hallucinations but exhibits a response to internal stimuli on occasion. The patient is cooperative with staff, he does require re-direction at times.
[2019-08-20] MEDS: olanzapine 10mg tablet PO SCH (20:34)
[2019-08-20] MEDS: famotidine 20mg tablet PO SCH (20:35)
--- NOTE | 2019-08-20 20:35 | NUR ---
Patient is resting in bed, awake. He denies any needs.
--- NOTE | 2019-08-20 21:10 | NUR ---
Patient is asleep in a low fowlers position. In direct view from the nursing station.
--- NOTE | 2019-08-20 22:39 | NUR ---
Freda argueta in [facility] - 08/21/19 at 0510 by SHIN Patient is awake and sitting up in bed. In view from the nursing station.
--- NOTE | 2019-08-20 23:32 | NUR ---
Patient is low fowlers in bed, just starting to sleep.
--- NOTE | 2019-08-21 01:44 | NUR ---
Patient is sleeping low fowlers in bed.
--- NOTE | 2019-08-21 02:18 | NUR ---
Patient sleeping quietly. He reposition's self frequently.
--- NOTE | 2019-08-21 03:30 | NUR ---
Patient is low fowlers position in bed, asleep on his right side
--- NOTE | 2019-08-21 05:02 | NUR ---
Patient is sleeping quietly on his left side, bed is in a low fowlers position.
--- NOTE | 2019-08-21 05:21 | NUR ---
Patient sleeping quietly on his right side.
--- NOTE | 2019-08-21 06:27 | NUR ---
pt is sleeping on his right side
--- NOTE | 2019-08-21 07:18 | NUR ---
pt is still sleeping.
[2019-08-21] MEDS: LORazepam 1 MG tablet PO SCH ×2 (08:37→20:15)
[2019-08-21] MEDS: quetiapine 100mg tablet PO SCH ×2 (08:37→20:16)
[2019-08-21] MEDS: lithium carbonate 150mg capsule PO SCH ×2 (08:37→20:15)
--- NOTE | 2019-08-21 08:52 | NUR ---
pt is sitting in his chair. he had his breakfast. took his meds
[2019-08-21] MEDS ORDERED: tuberculin, purif. prot. deriv. 5 units/0.1ml ID ONE (09:20)
--- NOTE | 2019-08-21 10:15 | NUR ---
pt given a TB test in his left upper inner forearm
--- NOTE | 2019-08-21 11:00 | NUR ---
pt resting in his room
--- NOTE | 2019-08-21 12:00 | NUR ---
pt went upstairs to take a shower.
--- NOTE | 2019-08-21 13:00 | NUR ---
pt had his interview with [employer]. they will call us with a decision in the next 24 hours.
--- NOTE | 2019-08-21 14:00 | NUR ---
pt went upstair to [facility] to go out on the patio.
--- NOTE | 2019-08-21 14:30 | NUR ---
pt back on the unit from [place]
--- NOTE | 2019-08-21 15:00 | NUR ---
pt is sleeping in his room. no concerns at his time
--- NOTE | 2019-08-21 16:00 | NUR ---
pt is sleeping. no concerns at this time
--- NOTE | 2019-08-21 17:00 | NUR ---
pt is walking around. no concerns at this time
--- NOTE | 2019-08-21 18:46 | NUR ---
Patient is awke and well oriented. Patient ambulates without problem. Patient ate his full dinner and is medication compliant. Patient denies S/I, H/I, or any hallucinations. Patient speaks in a normal rate, rhythm, and tone. On occasion this patient looks to be responding to some type of internal stimuli. Patient is cooperative and can be re-directed.
[2019-08-21] MEDS: famotidine 20mg tablet PO SCH (20:15)
[2019-08-21] MEDS: olanzapine 10mg tablet PO SCH (20:16)
[2019-08-21] MEDS: NICOTINE POLACRILEX 2 MG LOZENGE BC PRN (20:16)
--- NOTE | 2019-08-21 20:27 | NUR ---
Patient is medication compliant, sitting at bedside.
--- NOTE | 2019-08-21 20:39 | NUR ---
Note to 08/22 day shift RN: Pass along to read patients TB test between 08/23/19 @10:15 hours and 08/24/19 at 10/15 hours. The TB test was given on the left upper inner forarm.
--- NOTE | 2019-08-21 21:36 | NUR ---
Patient is awake, sitting up at bedside. He is reading. Patient was medication compliant this evening.
--- NOTE | 2019-08-21 23:06 | NUR ---
Patient is sitting up in bed. States he can't sleep. Patlient denies needing medications at this time.
--- NOTE | 2019-08-22 04:03 | NUR ---
Patient is sleeping on his left side, in view from nursing station.
--- NOTE | 2019-08-22 06:00 | NUR ---
Patientis sleeping quietly on his left side.
[2019-08-22] MEDS: LORazepam 1 MG tablet PO SCH ×2 (08:09→20:07)
[2019-08-22] MEDS: quetiapine 100mg tablet PO SCH ×2 (08:09→20:08)
[2019-08-22] MEDS: lithium carbonate 150mg capsule PO SCH ×2 (08:14→20:08)
--- NOTE | 2019-08-22 10:15 | NUR ---
Pt given crackers, juice and jello for snack as pt requesting.
--- NOTE | 2019-08-22 11:13 | NUR ---
Called director of graduate admissions Dina at [facility] and left msg requesting status after pt interviewed for possible placement.
--- NOTE | 2019-08-22 12:15 | NUR ---
Pt requesting snack reporting he is too hungry to wait for lunch trays. Pt received juice, string cheese and jello.
--- NOTE | 2019-08-22 14:35 | NUR ---
Second attempt to speak with Dina from [facility] made as no return call heard of yet. Number using received from [facility] is : Dina
[2019-08-22] MEDS: olanzapine 10mg tablet PO SCH (20:07)
[2019-08-22] MEDS: famotidine 20mg tablet PO SCH (20:07)
--- NOTE | 2019-08-23 06:04 | NUR ---
EOS summary. Pt. slept/rested most of the noc, see hourly notes. Will endorse to incoming shift: 1. PPD needs read between 08/23 @ 1030 to 08/24 @ 1030 and to f/u with [facility] facility (see phone number on prior notes).
--- NOTE | 2019-08-23 07:33 | NUR ---
PT SLEEPING, RESPIRATION SPONTANEOUS, EVEN AND UNLABORED, NO S/S OF DISTRESS DISCOMFORT OR AGITATION AT THIS TIME, PT IN LINE OF SITE OF NURSES STATION, WILL CONTINUE TO MONITOR PT, NO NEEDS AT THIS TIME.
--- NOTE | 2019-08-23 07:40 | NUR ---
PT AMBULATORY TO BATHROOM WITH STEADY GAIT.
--- NOTE | 2019-08-23 08:24 | NUR ---
BREAKFAST TRAY PLACED AT BEDSIDE, PT IS LYING UNDER COVERS NOT EATING AT THIS TIME, WILL CONTINUE TO MONITOR PT.
[2019-08-23] MEDS: LORazepam 1 MG tablet PO SCH ×2 (08:30→20:05)
[2019-08-23] MEDS: quetiapine 100mg tablet PO SCH ×2 (08:30→20:05)
[2019-08-23] MEDS: lithium carbonate 150mg capsule PO SCH ×2 (08:30→20:04)
--- NOTE | 2019-08-23 09:50 | NUR ---
PT PPD READ, NO INDURATION, NEGATIVE RESULTS, UPDATED REASSESSMENT IN eMAR, CALLED LARRY [phone] SPOKE WITH OK AND SHE WILL HAVE HER DIRECTOR BUSINESS DEVELOPMENT VICTORIA CALL ME TODAY TO REVIEW PT HISTORY, CALLED [facility] OFFICE AND SHE WILL BE CALL BJORN WITH LARRY TODAY FOR FOLLOWUP
--- NOTE | 2019-08-23 10:27 | NUR ---
PT FINISHED BREAKFAST TRAY, GAVE SANDWICH TO PT PER REQUEST, PT RESTING ON LEFT SIDE, RESPIRATION SPONTANEOUS, EVEN AND UNLABORED, NO S/S OF DISTRESS DISCOMFORT OR AGITATION AT THIS TIME, PT IN LINE OF SITE OF NURSES STATION, WILL CONTINUE TO MONITOR PT, NO NEEDS AT THIS TIME.
--- NOTE | 2019-08-23 12:39 | NUR ---
PT SLEEPING, RESPIRATION SPONTANEOUS, EVEN AND UNLABORED, NO S/S OF DISTRESS DISCOMFORT OR AGITATION AT THIS TIME, PT IN LINE OF SITE OF NURSES STATION, WILL CONTINUE TO MONITOR PT, NO NEEDS AT THIS TIME. CHRISTIANNE [facility] APPROACHED BED, INFORMED PT STARTLES EASILY WHEN WOKEN FROM SLEEP, [facility] WILL COME BACK WHEN PT AWAKE FOR EVALUATION.
--- NOTE | 2019-08-23 13:00 | NUR ---
LUNCH TRAY PLACED AT BEDSIDE.
--- NOTE | 2019-08-23 13:08 | NUR ---
SPOKE WITH SHAGGY SHEPHERD DIRECTOR AND SHERRY DIRECTOR CB AND CB WILL ACCEPT PT FOR ADMISSION IF [facility] DOES NOT ACCEPT THE PATIENT.
--- NOTE | 2019-08-23 13:27 | NUR ---
YARIEL WITH [facility] STATES PT IS ON LIST FOR REVIEW OF ACCEPTANCE TO [facility], [facility], [facility], HE WILL CONTACT [facility] OFFICE TO FOLLOW UP ON ALL OF THOSE, [facility] , [facility]
--- NOTE | 2019-08-23 13:45 | NUR ---
PT BROUGHT TO [facility] TO RECEIVE SHOWER AND HAVE SOME TIME ON [place].
--- NOTE | 2019-08-23 14:43 | NUR ---
PT BACK TO BED 20, PT HAS NEW SCRUBS ON, BEDDING WAS CHANGED BY [employer] WHILE PT WAS AWAY, PT GIVEN REFILL OF WATER AND JELLO
[2019-08-23] MEDS: NICOTINE POLACRILEX 2 MG LOZENGE BC PRN ×2 (14:51→20:05)
--- NOTE | 2019-08-23 16:48 | NUR ---
PT CUT HIS TOENAILS AND FINGERNAILS WITH NAILCLIPPERS PROVIDED BY STAFF AND THEN RETURN TO STAFF WHEN DONE.
--- NOTE | 2019-08-23 18:42 | NUR ---
Patient is awake and sitting on a chair at bedside. He is well oriented, wearing green scrubs, he is well groomed. Patient ate his full dinner. Patient expresses a need to "get out of here." Patient admits to believing that people are out to kill him, he states this might not really be the case but he still feels that way. Patient denies S/I or H/I. He denies hallucinations. Patient does still look to be responding to internal stimuli. Patient is currently making a phone call to his grandfather. Patient is explaining to his grandfather about future placement. Patient states he will be reading his Bible tonight. Patient is cooperative with staff at this time. He is in direct view from the nursing station. Frequent rounding will be done also for patient and staff safety.
[2019-08-23] MEDS: olanzapine 10mg tablet PO SCH (20:05)
[2019-08-23] MEDS: famotidine 20mg tablet PO SCH (20:05)
--- NOTE | 2019-08-23 22:32 | NUR ---
Patient is still sitting up on chair. He states he is not tired. Patient was recently pacing the unit. This literary writer requested patient to sit down as he was becoming a distraction to other patients, he complied. Patient offered medication for anxiety, he declined.
--- NOTE | 2019-08-23 23:46 | NUR ---
Patient is sitting on a chair at bedside, staring straight ahead, his arms are crossed.
--- NOTE | 2019-08-24 00:32 | NUR ---
Patient is sleeping on his left side, in view from the nursing station.
--- NOTE | 2019-08-24 01:21 | NUR ---
Patient is sleeping on his right side.
--- NOTE | 2019-08-24 02:34 | NUR ---
Patient is sleeping on his right side in bed.
--- NOTE | 2019-08-24 05:28 | NUR ---
PT REFUSED TO HAVE BP RE-CHECKED AFTER INITIAL READING OF 96/40. FEDERICO VASQUEZ NOTIFIED.
--- NOTE | 2019-08-24 06:35 | NUR ---
Patient sleeping prone. No distress observed. Continue to monitor.
[2019-08-24] MEDS: LORazepam 1 MG tablet PO SCH ×2 (08:00→20:30)
--- NOTE | 2019-08-24 08:30 | NUR ---
Patient sitting up and eating his breakfast. No distress observed. Continue to monitor.
--- NOTE | 2019-08-24 10:45 | NUR ---
Dr Cardona evaluating patient. Continue to monitor.
[2019-08-24] MEDS: quetiapine 100mg tablet PO SCH ×2 (12:01→20:31)
[2019-08-24] MEDS: lithium carbonate 150mg capsule PO SCH ×2 (12:01→20:31)
--- NOTE | 2019-08-24 12:45 | NUR ---
Patient sitting by his bedside table. No distress observed. Continue to monitor.
--- NOTE | 2019-08-24 13:20 | NUR ---
Patient eating lunch. No distress observed. Continue to monitor.
--- NOTE | 2019-08-24 15:48 | NUR ---
Patient reclining in bed. No distress observed. Continue to monitor.
--- NOTE | 2019-08-24 16:56 | NUR ---
Patient up at the nurses station chatting. No distress observed. Continue to monitor.
--- NOTE | 2019-08-24 18:33 | NUR ---
Assumed care of patient, pt. sitting up at bedside eating at this time. No s/s of distress, will monitor.
--- NOTE | 2019-08-24 20:30 | NUR ---
Completed 1:1 at bedside, pt. presents as cooperative and A&O X4. He is animated and speech is somewhat tangential at times, however he is able to be redirected. Pt. denies any S/I at this time, however reports he did have a suicide attempt to OD approximately eight months ago. This field underwriter questioned pt. regarding why he had attempted to commit suicide, he stated, "I was seeing a zombie apocalypse." He denies any current A/V/FERREIRA, but does report paranoid delusions that "Everyone wants to kill me." Pt. reports he feels that his medications are working, and he plans to continue to be medication compliant. He is hopeful that he will discharge to a Board and Care.
[2019-08-24] MEDS: famotidine 20mg tablet PO SCH (20:31)
[2019-08-24] MEDS: olanzapine 10mg tablet PO SCH (20:31)
[2019-08-24] MEDS: ibuprofen tablet 400 MG TABLET PO PRN (20:49)
--- NOTE | 2019-08-24 22:30 | NUR ---
Pt. sleeping at this time, laying on his rt. side, rr even and unlabored.
--- NOTE | 2019-08-25 00:34 | NUR ---
Pt. continues to sleep at this time, laying on his rt. side, will continue to monitor.
--- NOTE | 2019-08-25 02:30 | NUR ---
Pt. continues to sleep at this time, makes occasional body adjustments.
--- NOTE | 2019-08-25 04:30 | NUR ---
Pt. sleeping at this time, laying on his left side, rr even and unlabored.
[2019-08-25] MEDS: ibuprofen tablet 400 MG TABLET PO PRN ×3 (05:51→20:19)
--- NOTE | 2019-08-25 05:52 | NUR ---
Pt. awakens and requests PRN Motrin for h/a along with a snack, medication administered. Will continue to monitor.
[2019-08-25] MEDS: quetiapine 100mg tablet PO SCH ×2 (07:31→20:19)
[2019-08-25] MEDS: LORazepam 1 MG tablet PO SCH ×2 (07:31→20:19)
[2019-08-25] MEDS: lithium carbonate 150mg capsule PO SCH ×2 (07:32→20:18)
--- NOTE | 2019-08-25 08:26 | NUR ---
pt ate breakfast and took all meds no outbursts or issuse so far today
--- NOTE | 2019-08-25 09:58 | NUR ---
pt is in bed sleeping rise and fall of chest noted seen changing postion
--- NOTE | 2019-08-25 11:25 | NUR ---
pt in bed sleeping can be heard snoring
--- NOTE | 2019-08-25 13:57 | NUR ---
pt ate lunch and now is sitting up in a chair relaxing
--- NOTE | 2019-08-25 16:20 | NUR ---
pt sitting up in chair having some coffee asked if he could have sandwitch for dinner acacia
--- NOTE | 2019-08-25 19:00 | NUR ---
Pt sitting up conversing with staff.
--- NOTE | 2019-08-25 20:00 | NUR ---
Pt up pacing the hallway.
[2019-08-25] MEDS: olanzapine 10mg tablet PO SCH (20:18)
[2019-08-25] MEDS: famotidine 20mg tablet PO SCH (20:19)
--- NOTE | 2019-08-25 21:00 | NUR ---
Pt sitting on bed, attempting to converse with staff.
--- NOTE | 2019-08-25 22:00 | NUR ---
Pt resting comfortably, no s/s of distress, respirations normal.
--- NOTE | 2019-08-25 23:00 | NUR ---
Pt resting comfortably, no s/s of distress, respirations normal.
--- NOTE | 2019-08-26 | NUR ---
Pt resting comfortably, no s/s of distress, respirations normal.
--- NOTE | 2019-08-26 01:00 | NUR ---
Pt resting comfortably, no s/s of distress, respirations normal.
--- NOTE | 2019-08-26 02:00 | NUR ---
Pt resting comfortably, no s/s of distress, respirations normal.
--- NOTE | 2019-08-26 03:02 | NUR ---
Pt resting comfortably, no s/s of distress, respirations normal.
--- NOTE | 2019-08-26 04:00 | NUR ---
Pt resting comfortably, no s/s of distress, respirations normal.
--- NOTE | 2019-08-26 05:00 | NUR ---
Pt resting comfortably, no s/s of distress, respirations normal.
--- NOTE | 2019-08-26 05:47 | NUR ---
Pt resting comfortably, no s/s of distress, respirations normal.
--- NOTE | 2019-08-26 07:00 | NUR ---
PT IS SLEEPING
--- NOTE | 2019-08-26 08:00 | NUR ---
PT IS STILL SLEEPING
--- NOTE | 2019-08-26 09:00 | NUR ---
PT IS AWAKE. ATE BREAKFAST. TOOK MEDS
[2019-08-26] MEDS: lithium carbonate 150mg capsule PO SCH ×2 (09:17→20:16)
[2019-08-26] MEDS: LORazepam 1 MG tablet PO SCH ×2 (09:18→20:16)
[2019-08-26] MEDS: quetiapine 100mg tablet PO SCH ×2 (09:18→20:15)
[2019-08-26] MEDS: ibuprofen tablet 400 MG TABLET PO PRN (09:51)
--- NOTE | 2019-08-26 10:00 | NUR ---
pt is resting in his room. no issues at this time. pt is very pleasant
--- NOTE | 2019-08-26 11:00 | NUR ---
pt is sitting in his chair. no issues
--- NOTE | 2019-08-26 12:00 | NUR ---
pt is sitting in his room. no issues.
--- NOTE | 2019-08-26 12:49 | NUR ---
Patient is lying on his right side, RR is 12. Patient does not appear in distress at this time.W
--- NOTE | 2019-08-26 13:00 | NUR ---
pt is sitting in chair. ate lunch. pt is being very well behaved. very nice to staff
--- NOTE | 2019-08-26 14:00 | NUR ---
pt is sitting in his chair. asking for coffee. no issues at this time
--- NOTE | 2019-08-26 15:00 | NUR ---
pt is still sitting in his chair. no issues.
--- NOTE | 2019-08-26 15:00 | NUR ---
Patient sitting in chair near bed, awake, alert and appropriate. Patient does not appear in distress at this time.
--- NOTE | 2019-08-26 16:00 | NUR ---
pt went outside to patio up on [facility]
--- NOTE | 2019-08-26 17:00 | NUR ---
pt sitting in his chair drinking coffee
--- NOTE | 2019-08-26 17:58 | NUR ---
pt resting in bed. no concerns at this time
--- NOTE | 2019-08-26 19:00 | NUR ---
Pt sitting in chair requesting coffee and snacks.
--- NOTE | 2019-08-26 20:00 | NUR ---
Pt sitting up in chair.
[2019-08-26] MEDS: famotidine 20mg tablet PO SCH (20:15)
[2019-08-26] MEDS: olanzapine 10mg tablet PO SCH (20:16)
--- NOTE | 2019-08-26 21:00 | NUR ---
Pt up in chair conversing with staff.
--- NOTE | 2019-08-26 22:00 | NUR ---
Pt up in chair.
--- NOTE | 2019-08-26 23:35 | NUR ---
Pt resting quietly, respirations normal, no s/s of distress.
--- NOTE | 2019-08-26 23:42 | NUR ---
Pt in chair with blankets.
--- NOTE | 2019-08-27 01:11 | NUR ---
Pt resting quietly, respirations normal, no s/s of distress.
--- NOTE | 2019-08-27 02:00 | NUR ---
Pt resting quietly, respirations normal, no s/s of distress.
--- NOTE | 2019-08-27 03:00 | NUR ---
Pt resting quietly, respirations normal, no s/s of distress.
--- NOTE | 2019-08-27 04:32 | NUR ---
Pt resting quietly, respirations normal, no s/s of distress.
--- NOTE | 2019-08-27 08:00 | NUR ---
patient requesting if his discharge paperwork is done. Patient is asking for coffee
[2019-08-27] MEDS: lithium carbonate 150mg capsule PO SCH ×2 (08:24→20:13)
[2019-08-27] MEDS: quetiapine 100mg tablet PO SCH ×2 (08:25→20:12)
[2019-08-27] MEDS: LORazepam 1 MG tablet PO SCH ×2 (08:25→20:11)
--- NOTE | 2019-08-27 09:30 | NUR ---
patient is awake and pacing in front of the nurses desk
--- NOTE | 2019-08-27 13:44 | NUR ---
up and walking around, pacing , asking to use the phone
--- NOTE | 2019-08-27 15:13 | NUR ---
PATIENT SITTING IN CHAIR AT THE BEDSIDE, CALM AND ALERT
--- NOTE | 2019-08-27 17:55 | NUR ---
PATIENT SITTING UP THE DESK AND CHAIR AT THE BEDSIDE, CALM, NO NEEDS AT THIS TIME, ALL ADLS COMPLETED INDEPENDENTLY
--- NOTE | 2019-08-27 19:25 | NUR ---
PT UP OUT OF CHAIR TO HIS BED TURNED OUT HIS LIGHT AND IS LYING SUPINE .
--- NOTE | 2019-08-27 19:30 | NUR ---
PT FATHER RUBIA NASH AT [phone] PHONED TO SPEAK WITH PT PT REFUSED PHONE CALL
--- NOTE | 2019-08-27 19:53 | NUR ---
PT FATHER CALLED AGAIN , PT REFUSED TO SPEAK TO HIM AGAIN AT THIS TIME
[2019-08-27] MEDS: olanzapine 10mg tablet PO SCH (20:12)
[2019-08-27] MEDS: famotidine 20mg tablet PO SCH (20:13)
--- NOTE | 2019-08-27 20:41 | NUR ---
PT IN BED SUPINE TRYING TO SLEEP RAMIRO CONTINUE TO MONITOR AND ASSESS IN THE LINE OF SITE OF STAFF COROPORATIVE AT THIS TIME
--- NOTE | 2019-08-27 21:30 | NUR ---
PT RESTING PEACFULLY IN BED WILL CONTINUE TO MONITOR AND REASSESS
[2019-08-27] MEDS: acetaminophen 325mg tablet PO PRN (22:12)
--- NOTE | 2019-08-27 22:16 | NUR ---
PT ASKED FOR A SANDWITCH, HE DID NOT CARE FOR DINNER GAVE PT A TURKEY SNADWITCH . PT ALSO C/O OF FERREIRA MEDICATED WITH 650 MG OF TYLENOL FOR HEADACHE .
--- NOTE | 2019-08-27 23:13 | NUR ---
PT LAYING ON HIS RIGHT SIDE RESP UNLABOERD WILL CONTINUE TO MONITOR AND REASSESS
--- NOTE | 2019-08-28 00:30 | NUR ---
PT SLEEPING PEACFULLY RESP UNLABOERD WILL CONTINUE TO MONITOR AND REASSESS
--- NOTE | 2019-08-28 01:30 | NUR ---
PT LAYING ON HIS RIGHT SIDE RESP UNLABOERD WILL CONTINUE TO MONITOR AND REASSSESS
--- NOTE | 2019-08-28 02:30 | NUR ---
PT SLEEPING PEACFULLY RESP UNLABORED WILL CONTINUE TO MONITOR AND REASSESS
--- NOTE | 2019-08-28 03:30 | NUR ---
PT LAYING ON HIS LEFT SIDE / SELF REPOSITIONS /RESP UNLABOERD WILL CONTINUE TO MONITOR AND REASSSESS
--- NOTE | 2019-08-28 04:30 | NUR ---
PT LAYING ON HIS LEFT SIDE SLEEPING PEACFULLY /RESP UNLABOERD WILL CONTINUE TO MONITOR
--- NOTE | 2019-08-28 05:29 | NUR ---
PT SLEEPING ON HIS LEFT SIDE /RESP UNLABORED/ AUROSABLE WITH VS / WILL CONTINUE TO MONITOR AND REASSESS
--- NOTE | 2019-08-28 06:00 | NUR ---
pt is sleeping. no concern at this time
--- NOTE | 2019-08-28 07:00 | NUR ---
pt is sleeping
--- NOTE | 2019-08-28 08:00 | NUR ---
pt is awake and eating breakfast
[2019-08-28] MEDS: quetiapine 100mg tablet PO SCH ×2 (08:38→20:12)
[2019-08-28] MEDS: lithium carbonate 150mg capsule PO SCH ×2 (08:39→20:13)
[2019-08-28] MEDS: LORazepam 1 MG tablet PO SCH ×2 (08:39→20:13)
--- NOTE | 2019-08-28 09:00 | NUR ---
pt is sitting in his chair
--- NOTE | 2019-08-28 09:30 | NUR ---
Patient is awake and alert. No distress observed. Patient's skin is warm and dry. Respirations equal and non-labored. Patient hearing voices occasionally. Patient has been compliant and no signs of violence since patient arrived in the middle of July. Patient wanting to shower. Continue to monitor.
--- NOTE | 2019-08-28 10:00 | NUR ---
pt is laying in bed. no concerns
--- NOTE | 2019-08-28 11:00 | NUR ---
pt is resting in bed. no concerns
--- NOTE | 2019-08-28 12:05 | NUR ---
pt is sleeping no concerns at this time
--- NOTE | 2019-08-28 13:00 | NUR ---
PT EATING IN ROOM
--- NOTE | 2019-08-28 14:00 | NUR ---
PT IS WALKING AROUND
--- NOTE | 2019-08-28 15:00 | NUR ---
PT IS WALKING AROUND AND WAITING TO GO UP TO THE ROOF
--- NOTE | 2019-08-28 15:55 | NUR ---
PT WENT TO [facility]
--- NOTE | 2019-08-28 16:17 | NUR ---
CB WILL CONSIDER POSS TAKING THE PATIENT. THEIR DIRECTOR WILL RETURN ON TUESDAY
--- NOTE | 2019-08-28 16:27 | NUR ---
PT HAS BEEN DOING VERY WILL TODAY. PT IS VERY PLEASANT.
--- NOTE | 2019-08-28 17:00 | NUR ---
PT IS SITTING IN HIS CHAIR. TALKING WITH HIS NEW NEIGHBOR
--- NOTE | 2019-08-28 17:54 | NUR ---
PROGRESS NOTES FAXED TO [facility] OFFICE
--- NOTE | 2019-08-28 20:00 | NUR ---
The patient has been sitting by his bed facing the nursing station. He was been cooperative with the unit routine. He frequently attempts to engage staff 2nd to boredom. He reports that he felt he was doing "pretty good" and his mood was "Happy. Very hapy" he then added, "I was just rapping so you guys would've thought I was famous" He denies hearing voices but at times is observed talking to himself. He has limited insight. He has had no aggressive behaviors.
[2019-08-28] MEDS: famotidine 20mg tablet PO SCH (20:12)
[2019-08-28] MEDS: olanzapine 10mg tablet PO SCH (20:13)
--- NOTE | 2019-08-28 23:47 | NUR ---
The patient appears to be sleeping
--- NOTE | 2019-08-29 02:43 | NUR ---
The patient appears to be sleeping
--- NOTE | 2019-08-29 04:14 | NUR ---
The patient appears to be sleeping
--- NOTE | 2019-08-29 06:54 | NUR ---
Patient resting in bed peacefully At change of shift in the prone position. No distress observed. Will continue to monitor.
[2019-08-29] MEDS: lithium carbonate 150mg capsule PO SCH ×2 (08:07→20:04)
[2019-08-29] MEDS: quetiapine 100mg tablet PO SCH ×2 (08:08→20:05)
[2019-08-29] MEDS: LORazepam 1 MG tablet PO SCH ×2 (08:08→20:03)
--- NOTE | 2019-08-29 08:42 | NUR ---
Patient is sitting up in chair at edge of bed. He is pleasant and cooperative with care and takes his medications as ordered and prescribed without incident. He ate his breakfast. No distress observed. Will continue to monitor.
--- NOTE | 2019-08-29 10:42 | NUR ---
Patient is sitting in chair at end of bed. Denies needs at this time.
--- NOTE | 2019-08-29 11:33 | NUR ---
Patient is sitting in chair at end of bed with a towel draped on his head.
--- NOTE | 2019-08-29 11:47 | NUR ---
Patient was seen ambulating to bathroom. No distress observed.
--- NOTE | 2019-08-29 13:00 | NUR ---
Patient is sitting in chair at bedside eating lunch. No distress observed.
--- NOTE | 2019-08-29 15:17 | NUR ---
Patient is sitting at chair at end of bed. Singing to himself. He asks this RN, "Do you want to make out". This RN explained that this is an inappropriate request and redirected patient.
--- NOTE | 2019-08-29 15:19 | NUR ---
Patient appears to be responding to internal stimuli, talking to people who are not there. Pt states he is "bored".
--- NOTE | 2019-08-29 16:04 | NUR ---
Patient appears to be responding to internal stimuli and having pressured speech.
[2019-08-29] MEDS ORDERED: LORazepam 1 MG tablet PO ONE (16:55)
--- NOTE | 2019-08-29 19:21 | NUR ---
The patient is sitting up at the bedside facing the station and interacting with others. He is friendly and cooperative. He states he wants to be discharged soon. Tonight the patient is focused about seeing his conservator who told him he would come in to see him but has not yet come by. The patient is responding to internal stimuli and periodically can be heard laughing and saying odd things as if he is talking to someone. When asked he will deny that he hears voices but clearly is responding to internal stimuli.
[2019-08-29] MEDS: famotidine 20mg tablet PO SCH (20:04)
[2019-08-29] MEDS: olanzapine 10mg tablet PO SCH (20:04)
--- NOTE | 2019-08-29 22:27 | NUR ---
The patient is sitting on his bed. He is calm he is talking with staff.
--- NOTE | 2019-08-29 23:46 | NUR ---
The patient appears to be sleeping
--- NOTE | 2019-08-30 01:56 | NUR ---
The patient has been resting on his bed but awake.
--- NOTE | 2019-08-30 04:21 | NUR ---
The patient has been awake the majority of the night. He has been cooperative and respectful of peers trying to sleep. He is asking for food and a sandwhich was provided.
[2019-08-30] MEDS: acetaminophen 325mg tablet PO PRN (06:36)
[2019-08-30] MEDS: lithium carbonate 150mg capsule PO SCH (08:08)
[2019-08-30] MEDS: LORazepam 1 MG tablet PO SCH (08:08)
[2019-08-30] MEDS: quetiapine 100mg tablet PO SCH (08:08)
[2019-08-30 14:28] VITALS: BP 145/86
[2019-09-03] MEDS ORDERED: OLAN20TA3 PO (11:52)
[2019-09-03] MEDS ORDERED: LITH300C PO (11:52)
[2019-09-03] MEDS ORDERED: ATI1T PO (11:52)
[2019-09-03] MEDS ORDERED: QUET100T33 PO ×2 (11:52)
[2019-09-03] MEDS ORDERED: LITH150C8 PO (11:52)
[2019-09-03] MEDS ORDERED: NICO-687 TD (11:52)
[2019-09-03] MEDS ORDERED: FAMO20TA8 PO (11:52)
[2019-09-03] MEDS ORDERED: QUET25TA34 PO (11:52)
== END 2019-08-30 14:32 ==
LOC: ER 14:50
DX: F29 Unspecified psychosis not due to a substance or known physiological condition (principal); F20.9 Schizophrenia, unspecified; G89.29 Other chronic pain; F12.90 Cannabis use, unspecified, uncomplicated; Z59.0 Homelessness; Z56.0 Unemployment, unspecified; Z79.899 Other long term (current) drug therapy
CPT/HCPCS: 36415; 80048; 80053; 80178; 80305; 80320; 80329; 81001; 84443; 85025; 99285; J1630; J2060; Q0163

== ENCOUNTER 2020-02-22 10:07 | Emergency (ER) | payer MEDICAID ==
[~2020-02-22] VITALS: Ht 193 cm; Wt 113.6 kg
[~2020-02-22 10:07] MED LIST changes: +ATI1T PO; -DIVA-76 PO; +FAMO20TA8 PO; -GEMF600T89 PO; -IBUP-1985 PO; +LITH150C8 PO; +LITH300C PO; +NICO-687 TD; +OLAN20TA3 PO; -OLAN20TA34 PO; +QUET100T33 PO; +QUET25TA34 PO
--- NOTE | 2020-02-22 10:30 | NUR ---
spoke with Loan Young on phone and received verbal consent for the pt's treatment. phone number [phone]. Loan is with [facility] and is the person to contact for Brian's treatment. she also stated that he often runs so to keep that in mind and to have someone with him and have him not near an exit door. pt's nurse and the charge nurse aware
[2020-02-22 11:16] LABS: BASOPHILS % (AUTO) 0.4 % (0-1); EOSINOPHILS % (AUTO) 0.5 % (0-6); HEMOGLOBIN 15.5 g/dl (14.0-17.9); LYMPHOCYTES # (AUTO) 1.7 X10'3 (1.1-4.8); MEAN CORPUSCULAR HEMOGLOBIN 30.5 PG (27.0-31.0); MEAN CORPUSCULAR VOLUME 92.4 FL (78-98); MONOCYTES # (AUTO) 0.7 X10'3 (0-0.9); MONOCYTES % (AUTO) 8.7 % (2-12); NEUTROPHILS % (AUTO) 70.4 % (42-75); PLATELET COUNT 258 X10'3 (140-440); RED BLOOD COUNT 5.09 X10'6 (4.70-6.10); RED CELL DISTRIBUTION WIDTH 15.1 % (11.5-14.5); WHITE BLOOD COUNT 8.5 X10'3 (4.5-11.0)
[2020-02-22 11:29] LABS: ALANINE AMINOTRANSFERASE 15 U/L (12-78); ALBUMIN 3.8 G/DL (3.4-5.0); ALKALINE PHOSPHATASE 58 IU/L (46-116); ANION GAP 8 (8-16); ASPARTATE AMINO TRANSFERASE 14 U/L (10-37); BILIRUBIN,TOTAL 0.3 MG/DL (0.1-1.0); BLOOD UREA NITROGEN 10 MG/DL (7-18); BUN/CREATININE RATIO 11.1 (5.4-32.0); CALCIUM 8.4 MG/DL (8.5-10.1); CHLORIDE 107 MMOL/L (99-107); ETHANOL < 0.010 GM/DL (0.0-0.010); GLUCOSE 120 MG/DL (70-104); POTASSIUM 3.5 MMOL/L (3.5-5.1); SODIUM 142 MMOL/L (135-145); TOTAL CARBON DIOXIDE 26.8 MMOL/L (24-32); TOTAL PROTEIN 7.7 G/DL (6.4-8.2); eGFR > 90 ML/MIN
--- NOTE | 2020-02-22 11:30 | NUR ---
Pt's campos taken by registration to place in the safe.
[2020-02-22 11:55] LABS: URINE AMPHETAMINE SCREEN POSITIVE (Neg); URINE BARBITUATE SCREEN NEGATIVE (Neg); URINE BENZODIAZEPINES SCREEN NEGATIVE (Neg); URINE CANNABINOID SCREEN NEGATIVE (Neg); URINE COCAINE SCREEN NEGATIVE (Neg); URINE METHADONE SCREEN NEGATIVE (Neg); URINE OPIATE SCREEN NEGATIVE (Neg); URINE PHENCYCLIDINE SCREEN NEGATIVE (Neg)
[2020-02-22 12:58] LABS: CLARITY,URINE CLEAR (Clear); COLOR,URINE YELLOW (Yellow); GLUCOSE, URINE NEGATIVE (Neg); KETONES,URINE NEGATIVE (Neg); LEUKOCYTE ESTERASE ,URINE NEGATIVE (Neg); NITRITES, URINE NEGATIVE (Neg); OCCULT BLOOD,URINE NEGATIVE (Neg); PH,URINE 5.5 (4.8-8.0); PROTEIN,URINE 30 mg/dl (Neg)
[2020-02-22 12:59] LABS: UA COLLECTION TYPE URINAL
[2020-02-22 13:03] LABS: BACTERIA,URINE FEW /HPF (Neg); COARSE GRANULAR CAST 0-3 /LPF (NEGATIVE); HYALINE CASTS 0-3 /LPF (NEGATIVE); MUCUS STRANDS FEW /LPF (Neg); RBC,URINE NONE SEEN /HPF (0-2); SQUAMOUS EPITHELIAL CELL,UR FEW /LPF (FEW); WBC,URINE 0-4 /HPF (0-4)
[2020-02-22] MEDS ORDERED: haloperidol lactate 5mg/ml inj IM ONE (13:05)
--- NOTE | 2020-02-22 13:09 | NUR ---
PACKET FAXED TO [facility]
--- NOTE | 2020-02-22 13:39 | NUR ---
Pt brought back to room 25. Oriented to room, unit and plan of care. Pt laughing out loud, talking to himself. He is conserved. He states he ran away from [facility] and somehow ended up at his dad's house in [place]. Unclear how he ended up in [place] again.
--- NOTE | 2020-02-22 15:51 | NUR ---
Received call from [facility]. They requested TSH level to be faxed to them. Placed order in system and called lab. Will fax once it is available.
--- NOTE | 2020-02-22 17:09 | NUR ---
resting in bed
--- NOTE | 2020-02-22 19:30 | NUR ---
Pt. sitting on bed, AOX4, pleasant.
[2020-02-22] MEDS ORDERED: FAMO20TA8 PO (19:34)
[2020-02-22] MEDS ORDERED: QUET-1 PO ×2 (19:34)
[2020-02-22] MEDS ORDERED: LITH150C8 PO ×2 (19:34)
[2020-02-22] MEDS ORDERED: OLAN20TA3 PO (19:34)
[2020-02-22] MEDS ORDERED: LORA-269 PO (19:34)
--- NOTE | 2020-02-22 20:30 | NUR ---
Pt. resting in bed quietly. Requested water and was provided with a pitcher full.
--- NOTE | 2020-02-22 21:30 | NUR ---
Pt. continues to rest quietly. No needs at this time.
--- NOTE | 2020-02-22 22:30 | NUR ---
Pt. requesting to shower "upstairs." Pt. provided with cleaning supplies instead, to be used in the OF bathroom. No other needs at this time.
[2020-02-22] MEDS: olanzapine 10mg tablet PO SCH (23:17)
--- NOTE | 2020-02-22 23:30 | NUR ---
Pt. resting in bed quietly.
--- NOTE | 2020-02-23 00:30 | NUR ---
Pt. resting in bed/sleeping. Appears comfortable.
--- NOTE | 2020-02-23 01:30 | NUR ---
Pt. sleeping. Even resp observed. Appears comfortable.
--- NOTE | 2020-02-23 02:30 | NUR ---
Pt. in bed, asleep. Appears to be comfortable.
--- NOTE | 2020-02-23 03:30 | NUR ---
Pt. continues to rest/sleep. He uses the bathroom independently.
--- NOTE | 2020-02-23 04:30 | NUR ---
Pt. resting in bed/sleeping. No concerns at this time.
--- NOTE | 2020-02-23 05:23 | NUR ---
Pt. continues to sleep.
--- NOTE | 2020-02-23 06:04 | NUR ---
Med rec was done on pt. based on his report. Pt. is on high dosage of lithium and last lithium level is unknown. Need baseline lithium levels. Incoming RN made aware and request to be made during MD rounds.
[2020-02-23] MEDS: famotidine 20mg tablet PO SCH ×2 (08:51→20:50)
[2020-02-23] MEDS: QUEtiapine 25mg tablet PO SCH (08:51)
[2020-02-23] MEDS: lithium carbonate 150mg capsule PO SCH ×2 (08:52→20:50)
[2020-02-23] MEDS: LORazepam 1 MG tablet PO SCH ×2 (08:52→20:49)
--- NOTE | 2020-02-23 12:53 | NUR ---
pt is resting, spoke with [facility] office about placement, [facility] and both [facility] denied pt due to prior conflicts having the patient
--- NOTE | 2020-02-23 13:00 | NUR ---
resting in bed
--- NOTE | 2020-02-23 13:32 | NUR ---
RESTING IN POC.
--- NOTE | 2020-02-23 14:00 | NUR ---
resting in bed
--- NOTE | 2020-02-23 15:00 | NUR ---
resting in bed
--- NOTE | 2020-02-23 16:00 | NUR ---
resting in bed
--- NOTE | 2020-02-23 17:00 | NUR ---
resting in bed
--- NOTE | 2020-02-23 18:00 | NUR ---
resting in bed
--- NOTE | 2020-02-23 19:00 | NUR ---
Pt resting quietly, respirations normal, no s/s of distress.
--- NOTE | 2020-02-23 20:00 | NUR ---
Pt resting quietly, respirations normal, no s/s of distress.
[2020-02-23] MEDS: quetiapine 100mg tablet PO SCH (20:50)
[2020-02-23] MEDS: olanzapine 10mg tablet PO SCH (20:50)
--- NOTE | 2020-02-23 21:00 | NUR ---
Pt up to restroom.
--- NOTE | 2020-02-23 22:00 | NUR ---
Pt resting quietly, respirations normal, no s/s of distress.
--- NOTE | 2020-02-23 22:57 | NUR ---
Pt resting quietly, respirations normal, no s/s of distress.
--- NOTE | 2020-02-23 23:49 | NUR ---
Pt resting quietly, respirations normal, no s/s of distress.
--- NOTE | 2020-02-24 01:24 | NUR ---
Pt resting quietly, respirations normal, no s/s of distress.
--- NOTE | 2020-02-24 02:59 | NUR ---
Pt resting quietly, respirations normal, no s/s of distress.
--- NOTE | 2020-02-24 05:20 | NUR ---
Pt resting quietly, respirations normal, no s/s of distress.
[2020-02-24] MEDS: QUEtiapine 25mg tablet PO SCH (08:00)
--- NOTE | 2020-02-24 09:48 | NUR ---
Breaking primary RN, pt appears to be sleeping, regular breathing present
--- NOTE | 2020-02-24 11:55 | NUR ---
Breaking primary RN, pt is asleep on his right side, regular breathing present, no needs at this time
[2020-02-24] MEDS: LORazepam 1 MG tablet PO SCH ×2 (13:09→23:25)
[2020-02-24] MEDS: famotidine 20mg tablet PO SCH (13:09)
[2020-02-24] MEDS: lithium carbonate 150mg capsule PO SCH (13:10)
--- NOTE | 2020-02-24 14:44 | NUR ---
Breaking Primary RN, pt is asleep, regular breathing present, will continue to monitor
--- NOTE | 2020-02-24 19:37 | NUR ---
PT REQUESTING PHONE TO CALL HIS CONSERVATOR, THEN DECIDED NOT TO. THE ASKED FOR PHONE AGAIN TO CALL HIS GRANDFATHER. PT STATES HE COULD NOT REACH HIM. REQUEST FOR HIS GRANDFATHER TO BRING HIM SOME MCDONALDS. I EXPLAIND OUR POLICY ABOUT NO OUTSIDE FOOD. PT UPDATED THAT HIS FAMILY CAN BRING HIM BOOKS AND MAGAZINES, ETC. PT GIVEN CRACKERS AND WATER. HE STATES TO ME TAHT HE WAS "DOING REALLY GOOD IN MY BOARD AND [facility] (SOMEWHERE IN THE [place])...THEN I SNUCK OUT ONE NIGHT WITH THIS GIRL AND WE WENT TO [place] FOR 2 DAYS...THEN I WAS AT MY DAD'S HOUSE AND MY CONSERVATOR CAME TO GET ME AND SHE BROUGHT ME BACK TO [place]...THEY WANTED ME CHECKED OUT...MAYBE FOR REVELES VIRUS". I ASKED WHY HE DID NOT DO A MENTAL HEALTH CHECK UP IN THE AREA HE WAS LIVING, BUT HE DID NOT KNOW. STATES A HISTORY OF "SCHITZOPHRENIA OR MAYBE SCHITZOAFFECTIVE DISORDER". STATES BEGAN HAVING MENTAL HEALTH PROBLEMS AT AGE 19. PT IS COOPERATIVE AND TALKATIVE AND POLITE. STATES HE SLEPT ABOUT 8 HRS TODAY AND JUST GOT MORE MEDS ABOUT A FEW HRS AGO, SO "I DON'T THINK I'LL SLEEP GOOD TONIGHT".
--- NOTE | 2020-02-24 20:33 | NUR ---
Breaking primary RN, pt is asleep, regular breathing observed,
--- NOTE | 2020-02-24 21:46 | NUR ---
PT SLEEPING, LYING ON HIS RIGHT SIDE WITH BLANKETS COVERING TO HIS CHEST. RR 14 AND UNLABORED.
--- NOTE | 2020-02-24 23:08 | NUR ---
Breaking primary RN. Pt. resting quietly, no signs of distress, respirations even and unlabored.
--- NOTE | 2020-02-25 00:55 | NUR ---
Pt remains asleep, lying on his back with blankets covering to his chest. RR 14 and unlabored. Sitter and RN within view of Pt aat. Pt feel asleep before getting any of his HS meds (lithium, zyprexa, seroquel).
[2020-02-25] MEDS: lithium carbonate 150mg capsule PO SCH ×3 (02:16→20:42)
[2020-02-25] MEDS: quetiapine 100mg tablet PO SCH ×2 (02:16→20:22)
[2020-02-25] MEDS: famotidine 20mg tablet PO SCH ×3 (02:17→20:39)
[2020-02-25] MEDS: olanzapine 10mg tablet PO SCH ×2 (02:17→20:22)
--- NOTE | 2020-02-25 02:24 | NUR ---
Pt awakened easily to soft voice and given HS meds (seroquel, lithium, pepcid, zyprexa). VS taken and WNL. Pt reports some occasional "tooth ache" pain , but not hurting him at this time and no need for pain meds. Pt given filled pitcher of ice water. He took meds with no issues, only asking what meds they were and then lay back down and covered himself with blanket.
--- NOTE | 2020-02-25 04:21 | NUR ---
Pt fell back to sleep quickly after meds given at 1 am and has remained alseep. Currently lying on his right side with blankets covering to his shoulders. RR 14 and unlabored. Sitter and RN within view of Pt aat.
--- NOTE | 2020-02-25 07:32 | NUR ---
Resting in bed with eyes closed
[2020-02-25] MEDS: LORazepam 1 MG tablet PO SCH ×2 (08:30→20:16)
[2020-02-25] MEDS: QUEtiapine 25mg tablet PO SCH (08:32)
--- NOTE | 2020-02-25 08:38 | NUR ---
Awake, ate breakfast and took his medications. Not willing to interview
--- NOTE | 2020-02-25 09:34 | NUR ---
Breaking Primary RN, patient is laying on his right side, eyes closed, regular breathing, sleeping, no needs at this time
--- NOTE | 2020-02-25 10:58 | NUR ---
[facility] AT BEDSIDE TO SPEAK WITH PATIENT AT THIS TIME. PATIENT CALM, COOPERATIVE, NO SIGNS OF DISTRESS NOTED, REQUESTED A SANDWICH.
--- NOTE | 2020-02-25 18:30 | NUR ---
PT EATING DINNER
--- NOTE | 2020-02-25 19:01 | NUR ---
ASSUMED CARE OF PATIENT SITTING UP IN BED EATING DINNER . IN THE DIRECT LINE OF SIGHT OF NURSING STAFF . PLEASANT . COROPORTIVE. UPDATED PLAN OF CARE . NO QUESTIONS ASKED. PT ATE MOST OF HIS DINNER . IN THE DIRECT LINE OF SIGHT OF NURSING STAFF.
--- NOTE | 2020-02-25 19:17 | NUR ---
PT LYING ON HIS LEFT SIDE RESTING IN BED . RESP EVEN AND UNLABORED . WARM BLANKET GIVEN TO PATIENT HE REQUESTED ONE.
--- NOTE | 2020-02-25 19:44 | NUR ---
PT ASKED FOR GRAMCRACKERS AND MILK . STATES THAT HE HAS BEEN IN [facility] FOR 3 DAYS AND IS REALLY HUNGREY . PT GIVEN 4 PACKS OF GRAMCRACKERS AND SOME MILK
--- NOTE | 2020-02-25 20:31 | NUR ---
PTS FATHER AND "STEP MOM" SINDY CALLED, TOLD THEM IT WAS AFTER HOURS AND TO CALL BACK IN AM. [phone] INCASE PT WANTS TO CALL THEM TOMORROW
--- NOTE | 2020-02-25 21:25 | NUR ---
Freda argueta in [facility] - 02/25/20 at 2145 by ANDREIA PACKET FAXED TO [facility]
--- NOTE | 2020-02-25 21:30 | NUR ---
PT SLEEPING ON HIS LEFT SIDE RESP EVEN AND UNLABORED WILL CONTINUE TO MONITOR AND REASSESS
--- NOTE | 2020-02-25 22:32 | NUR ---
NO CHANGES TO PREVIOUS ASSESSMENT PT SLEEPING PEACFULLY .
--- NOTE | 2020-02-25 23:55 | NUR ---
Breaking primary RN, pt. resting quietly, no signs of distress, respirations even and unlabored.
--- NOTE | 2020-02-26 00:30 | NUR ---
PT SLEEPING PEACFULLY SUPINE . RESP EVEN AND UNLABORED . IN THE DIRECT LINE OF SIGHT OF NURSING STAFF.
--- NOTE | 2020-02-26 01:17 | NUR ---
PT SLEEPING SUPINE IN BED RESP EVEN AND UMLABORED . SELF REPSOTIONING . IN THE DIRECT LINE OF SIGHT OF NURSING STAFF.
--- NOTE | 2020-02-26 02:30 | NUR ---
PT SLEEPING ON HIS RIGHT SIDE IN BED RESP EVEN AND UNLABORED . SELF REPSOTIONING . IN THE DIRECT LINE OF SIGHT OF NURSING STAFF.
--- NOTE | 2020-02-26 03:30 | NUR ---
PT SLEEPING SUPINE IN BED RESP EVEN AND UNLABORED . SELF REPSOTIONING . IN THE DIRECT LINE OF SIGHT OF NURSING STAFF.
--- NOTE | 2020-02-26 04:30 | NUR ---
PT SLEEPING ON HIS RIGHT SIDE IN BED RESP EVEN AND UNLABORED . SELF REPOSITIONING . IN THE DIRECT LINE OF SIGHT OF NURSING STAFF.
--- NOTE | 2020-02-26 04:56 | NUR ---
PT SLEEPING SUPINE IN BED RESP EVEN AND UMLABORED . SELF REPSOTIONING . IN THE DIRECT LINE OF SIGHT OF NURSING STAFF.
[2020-02-26] MEDS: famotidine 20mg tablet PO SCH ×2 (09:14→20:29)
[2020-02-26] MEDS: QUEtiapine 25mg tablet PO SCH (09:15)
[2020-02-26] MEDS: LORazepam 1 MG tablet PO SCH ×2 (09:16→20:29)
[2020-02-26] MEDS: lithium carbonate 150mg capsule PO SCH ×2 (09:16→20:28)
--- NOTE | 2020-02-26 09:23 | NUR ---
Patient awakened and ate breakfast, medications administered without incident. Pt. now sleeping.
--- NOTE | 2020-02-26 11:20 | NUR ---
Patient continues to sleep peacefully. Will continue to monitor.
--- NOTE | 2020-02-26 11:45 | NUR ---
Patient up to the bathroom.
--- NOTE | 2020-02-26 12:59 | NUR ---
Patient is eating lunch at this time. No behavioral problems noted.
--- NOTE | 2020-02-26 15:18 | NUR ---
Patient up to the restroom, now requesting snacks.
[2020-02-26] MEDS ORDERED: LORazepam 1 MG tablet PO ONE (15:50)
--- NOTE | 2020-02-26 16:30 | NUR ---
Patient started getting agitated, 2 mg of Ativan given. Patient on the telephone with conservator.
--- NOTE | 2020-02-26 19:14 | NUR ---
The patient has been resting on his bed. He as been friendly and social with staff. He is making frequent requests. When asked if heard voices he stated "Not so much' When asked how his mood was he stated he felt "fidgety I want to walk to the store and buy a beer"
[2020-02-26] MEDS: quetiapine 100mg tablet PO SCH (20:28)
[2020-02-26] MEDS: olanzapine 10mg tablet PO SCH (20:28)
--- NOTE | 2020-02-26 21:04 | NUR ---
The patient appears to be sleeping
--- NOTE | 2020-02-26 23:05 | NUR ---
The patient appears to be sleeping
--- NOTE | 2020-02-27 00:50 | NUR ---
The patient appears to be sleeping
--- NOTE | 2020-02-27 03:30 | NUR ---
The patient appears to be sleeping
--- NOTE | 2020-02-27 04:54 | NUR ---
The patient appears to be asleep
--- NOTE | 2020-02-27 06:26 | NUR ---
Patient sleeping in bed. Respirations are even and nonlabored.
[2020-02-27] MEDS: lithium carbonate 150mg capsule PO SCH ×2 (08:49→20:12)
[2020-02-27] MEDS: famotidine 20mg tablet PO SCH ×2 (08:49→20:13)
[2020-02-27] MEDS: LORazepam 1 MG tablet PO SCH ×2 (08:49→20:11)
[2020-02-27] MEDS: QUEtiapine 25mg tablet PO SCH (08:49)
--- NOTE | 2020-02-27 08:57 | NUR ---
Patient took medications without incident, ate his breakfast and up to the restroom.
--- NOTE | 2020-02-27 10:30 | NUR ---
assumed care of patient. he is resting in his bed no issues at this time
--- NOTE | 2020-02-27 11:30 | NUR ---
pt is resting
--- NOTE | 2020-02-27 12:30 | NUR ---
pt is resting in his room. no issues or concerns at this time
--- NOTE | 2020-02-27 13:30 | NUR ---
pt is sleeping. no concerns
--- NOTE | 2020-02-27 14:30 | NUR ---
pt is sleeping. no concerns
--- NOTE | 2020-02-27 15:30 | NUR ---
no concerns. pt is talking with his friend
--- NOTE | 2020-02-27 18:36 | NUR ---
assumed care of pt he is awake and calm
--- NOTE | 2020-02-27 19:36 | NUR ---
pt ambulated to bathroom, calm no needs
[2020-02-27] MEDS: olanzapine 10mg tablet PO SCH (20:13)
[2020-02-27] MEDS: quetiapine 100mg tablet PO SCH (20:13)
--- NOTE | 2020-02-27 20:35 | NUR ---
pt pacing around, calm, at this time
--- NOTE | 2020-02-27 20:35 | NUR ---
pt is asleep, regular breathing present, will continue to monitor
--- NOTE | 2020-02-27 21:35 | NUR ---
pt accepted medications with no difficulty
--- NOTE | 2020-02-27 22:35 | NUR ---
pt is asleep, regular breathing present
--- NOTE | 2020-02-28 00:30 | NUR ---
Client resting on left side. Respirations even and unlabored.
--- NOTE | 2020-02-28 01:55 | NUR ---
Client resting with eye's closed.
--- NOTE | 2020-02-28 02:05 | NUR ---
Client resting in bed. No signs of distress.
--- NOTE | 2020-02-28 03:04 | NUR ---
Resting, eye's closed. Respirations even and unlabored.
--- NOTE | 2020-02-28 03:56 | NUR ---
Resting, eyes closed.
--- NOTE | 2020-02-28 05:48 | NUR ---
Client slept during shift. Compliant with vital signs. Resp even and unlabored.
--- NOTE | 2020-02-28 06:33 | NUR ---
pt sleeping on his lft lateral position.rr even and non labored,no distress noted ,will cont to monitor.
--- NOTE | 2020-02-28 07:27 | NUR ---
pt sleeping in lft lateral position no distress noted ,will cont to monitor ,rr even and nonlabored.
--- NOTE | 2020-02-28 08:07 | NUR ---
pt resting in bed quietly no distress noted ,waiting on breakfast then will give meds.
--- NOTE | 2020-02-28 08:14 | NUR ---
Breakfast trays have arrived and are taken to pt's room.
[2020-02-28] MEDS: famotidine 20mg tablet PO SCH ×2 (09:11→19:35)
[2020-02-28] MEDS: LORazepam 1 MG tablet PO SCH ×2 (09:11→19:35)
[2020-02-28] MEDS: QUEtiapine 25mg tablet PO SCH (09:12)
[2020-02-28] MEDS: lithium carbonate 150mg capsule PO SCH ×2 (09:12→19:35)
--- NOTE | 2020-02-28 09:21 | NUR ---
Asked the pt how he slept whole night as per pt he slept well whole night .pt medicated with pamela morning meds ,pt has taken all meds ,pt asking for more coffee ,informed that "we don't have it and you already had a cup of coffee."pt now laying in bed after finishing his breakfast.
--- NOTE | 2020-02-28 10:40 | NUR ---
Pt is calm and cooperative at this time. Pt is resting with even and unlabored respirations.
--- NOTE | 2020-02-28 11:43 | NUR ---
PT HAS NO CHANGE IN CONDITION, CONTINUING TO MONITOR.
--- NOTE | 2020-02-28 12:40 | NUR ---
Pt is resting with no signs of distress, continuing to monitor.
--- NOTE | 2020-02-28 13:36 | NUR ---
Patient ambulated to the restroom to freshen up and changed into clean green scrubs. Pt is calm and cooperative at this time.
--- NOTE | 2020-02-28 14:26 | NUR ---
pt appear sleeping at this time ,no distress noted ,rr even and unlabored ,primary nurse on break.
--- NOTE | 2020-02-28 15:18 | NUR ---
Pt ambulatory in the Overflow area, given some crackers, string cheese and a juice as a snack. Pt is cooperative with staff.
--- NOTE | 2020-02-28 16:18 | NUR ---
Pt is resting in a position of comfort on the bed with even and unlabored respirations.
--- NOTE | 2020-02-28 17:07 | NUR ---
Pt inquired about an update for his placement. Pt informed we are awaiting disposition and accepting facility. Patient is calm with staff at this time.
--- NOTE | 2020-02-28 18:05 | NUR ---
Pt is cooperative with staff at this time.
--- NOTE | 2020-02-28 19:00 | NUR ---
Pt standing at bedside.
--- NOTE | 2020-02-28 19:30 | NUR ---
Pt requesting his meds stating he feels "anxious".
[2020-02-28] MEDS: quetiapine 100mg tablet PO SCH (19:34)
[2020-02-28] MEDS: olanzapine 10mg tablet PO SCH (19:35)
--- NOTE | 2020-02-28 19:53 | NUR ---
Pt requesting a snack.
--- NOTE | 2020-02-28 21:59 | NUR ---
BREAKING PRIMARY RN; WILL CONT TO MONITOR.
--- NOTE | 2020-02-28 23:09 | NUR ---
Pt resting quietly, respirations normal, no s/s of distress.
--- NOTE | 2020-02-29 00:02 | NUR ---
Pt resting quietly, respirations normal, no s/s of distress.
--- NOTE | 2020-02-29 02:00 | NUR ---
Pt resting quietly, respirations normal, no s/s of distress.
--- NOTE | 2020-02-29 04:28 | NUR ---
Pt resting quietly, respirations normal, no s/s of distress.
--- NOTE | 2020-02-29 07:01 | NUR ---
Asleep resp stable
--- NOTE | 2020-02-29 08:00 | NUR ---
resting in bed resp stable
[2020-02-29] MEDS: famotidine 20mg tablet PO SCH ×2 (08:42→20:20)
[2020-02-29] MEDS: LORazepam 1 MG tablet PO SCH ×2 (08:42→20:23)
[2020-02-29] MEDS: lithium carbonate 150mg capsule PO SCH ×2 (08:42→20:22)
[2020-02-29] MEDS: QUEtiapine 25mg tablet PO SCH (08:43)
--- NOTE | 2020-02-29 09:00 | NUR ---
resting in bed resp stable
--- NOTE | 2020-02-29 10:00 | NUR ---
resting in bed resp stable
--- NOTE | 2020-02-29 11:00 | NUR ---
resting in bed resp stable
--- NOTE | 2020-02-29 12:00 | NUR ---
resting in bed resp stable
--- NOTE | 2020-02-29 13:00 | NUR ---
resting in bed resp stable
[2020-02-29] MEDS ORDERED: acetaminophen 325mg tablet PO ONE ×2 (13:15→20:10)
--- NOTE | 2020-02-29 13:36 | NUR ---
Phone message left with [place] Conservatorship office, specifically for Loan callahan update on placement efforts related to this pt. Reiterated in message pt is on his consecutive [id number] while under conservatorship.
--- NOTE | 2020-02-29 14:00 | NUR ---
resting in bed resp stable
--- NOTE | 2020-02-29 14:16 | NUR ---
Freda argueta in [facility] - 02/29/20 at 1417 by SRINIVAS paper cup handle machine operator time for [facility] ~ [id number], per [facility] personnel.
--- NOTE | 2020-02-29 15:00 | NUR ---
resting in bed resp stable
--- NOTE | 2020-02-29 16:00 | NUR ---
resting in bed resp stable
--- NOTE | 2020-02-29 17:00 | NUR ---
resting in bed resp stable
--- NOTE | 2020-02-29 18:05 | NUR ---
resting in bed resp stable
[2020-02-29] MEDS: olanzapine 10mg tablet PO SCH (20:20)
[2020-02-29] MEDS: quetiapine 100mg tablet PO SCH (20:21)
--- NOTE | 2020-02-29 20:49 | NUR ---
PT UP TO THE BATHROOM.
--- NOTE | 2020-02-29 23:49 | NUR ---
PT RESTING IN BED. NO S/S OF DISTRESS OR PAIN. RR OF 16. WILL CONTINUE TO MONITOR.
--- NOTE | 2020-03-01 07:02 | NUR ---
Asleep respirations stable
--- NOTE | 2020-03-01 08:00 | NUR ---
Asleep respirations stable
[2020-03-01] MEDS: lithium carbonate 150mg capsule PO SCH ×2 (08:03→20:30)
[2020-03-01] MEDS: famotidine 20mg tablet PO SCH ×2 (08:03→20:34)
[2020-03-01] MEDS: LORazepam 1 MG tablet PO SCH ×2 (08:03→20:30)
[2020-03-01] MEDS: QUEtiapine 25mg tablet PO SCH (08:03)
--- NOTE | 2020-03-01 09:23 | NUR ---
Asleep respirations stable
--- NOTE | 2020-03-01 14:10 | NUR ---
taken over from josefina martin who was covering for beatrice martin who was the primary nurse for the pt.
--- NOTE | 2020-03-01 14:39 | NUR ---
pt sleeping at this time ,no distress noted .rr even and nonlabored.
--- NOTE | 2020-03-01 15:51 | NUR ---
pt changing position in bed ,no distress noted ,will cont to monitor.
--- NOTE | 2020-03-01 16:48 | NUR ---
PT UP IN BED LOOKS ANXIOUS REQUESTED FOR THE COFFEE,PT STATED THAT HE IS BORING DOES NOT KNOW WHAT TO DO ,PT WALKING IN THE HALLWAY ,PT SAID HE IS NOT SUPPOSED TO BE HERE ,ALSO JOHN "I AM NOT GOING TO SNEEK OUT OF HERE BECAUSE ITS NOT WORTH IT ,I HAVE TRIED IT BEFORE,PT HAS PRESSURED SPEECH WHILE TALKING.
--- NOTE | 2020-03-01 17:05 | NUR ---
PT ASKING ABOUT MORE COFFEE INSTRUCTED NO MORE COFFEE AND GO BACK TO BED .SET LIMIT FOR THE PT, PT HAS ALREADY HAD 3 CUPS OF COFEE.PT VERBALIZED UNDERSATNDING DENIES ANY CONCERN.
--- NOTE | 2020-03-01 17:31 | NUR ---
PT SAID HE LIKES TO TALK,PT SAID AM TIRED OF SLEEPING ALL DAY IN THE BED ,PT GIVEN CHAIR TO SIT .PT SITTING IN CHAIR AND HAVING CONVERSATION ABOUT PARTING,HAVING SEX WITH GIRLS ,MONEY ,CAR ,NEW CLOTHES.PT DOES STOP WHEN LIMITATION SETS.
--- NOTE | 2020-03-01 17:58 | NUR ---
PT USING PHONE AT THIS TIME WALKING IN HALLWAY INSTRUCTED TO STAY NEAR THE BED ITS ALMOST TIME FOR VITALS CHECK AND SHIFT CHANGE,PT VERBALIZED UNDERSTANDING,NO DISTRESS NOTED ,WILL CONT TO MONITOR .
[2020-03-01] MEDS: quetiapine 100mg tablet PO SCH (20:29)
[2020-03-01] MEDS: olanzapine 10mg tablet PO SCH (20:30)
--- NOTE | 2020-03-02 02:41 | NUR ---
Pt. resting in bed. Used the bathroom once in the last hour. Denies and shows no s/s of distress/discomfort.
--- NOTE | 2020-03-02 07:25 | NUR ---
Resting in bed with eyes closed, respirations normal.
[2020-03-02] MEDS: lithium carbonate 150mg capsule PO SCH ×2 (08:39→20:22)
[2020-03-02] MEDS: famotidine 20mg tablet PO SCH ×2 (08:39→20:23)
[2020-03-02] MEDS: LORazepam 1 MG tablet PO SCH ×2 (08:39→20:23)
[2020-03-02] MEDS: QUEtiapine 25mg tablet PO SCH (08:40)
--- NOTE | 2020-03-02 11:16 | NUR ---
Pt still asleep, woke briefly for breakfast and medications
--- NOTE | 2020-03-02 14:29 | NUR ---
pt keeps asking for snacks over and over has been told no multiple times that he needs to wait. PT then decided to give me the middle finger.
[2020-03-02] MEDS: quetiapine 100mg tablet PO SCH (20:22)
[2020-03-02] MEDS: olanzapine 10mg tablet PO SCH (20:23)
--- NOTE | 2020-03-03 06:30 | NUR ---
RECEIVED REPORT FROM WINSTON CABALLERO.
--- NOTE | 2020-03-03 07:30 | NUR ---
PATIENT SLEEPING, NO S/SX OF DISTRESS NOTED.
--- NOTE | 2020-03-03 08:30 | NUR ---
PATIENT SLEEPING, NO S/SX OF DISTRESS NOTED.
--- NOTE | 2020-03-03 09:21 | NUR ---
PATIENT WAKING UP.
[2020-03-03] MEDS: LORazepam 1 MG tablet PO SCH ×2 (09:27→20:36)
[2020-03-03] MEDS: QUEtiapine 25mg tablet PO SCH (09:28)
[2020-03-03] MEDS: famotidine 20mg tablet PO SCH ×2 (09:28→20:00)
[2020-03-03] MEDS: lithium carbonate 150mg capsule PO SCH ×2 (09:28→20:37)
--- NOTE | 2020-03-03 10:04 | NUR ---
PATIENT RESTING IN BED WITH EYES CLOSED, NO C/O NOTED.
--- NOTE | 2020-03-03 11:38 | NUR ---
Patient resting in bed, frequently asks for food. Will see about ordering double portions.
--- NOTE | 2020-03-03 12:20 | NUR ---
Resting in bed with eyes closed, no c/o noted.
--- NOTE | 2020-03-03 13:12 | NUR ---
Eating lunch, resting in bed. No c/o noted.
--- NOTE | 2020-03-03 14:30 | NUR ---
Patient agitated, wants conservatorship removed. Expressing irritation. Security came to check in on him.
--- NOTE | 2020-03-03 15:30 | NUR ---
Patient resting in bed looking to nurses station. States "I'm bored." Gave options of what he could do so he decided to unit.
--- NOTE | 2020-03-03 16:30 | NUR ---
Patient resting in bed, occasionally walking around for something to do.
--- NOTE | 2020-03-03 19:05 | NUR ---
The patient is sitting on the side of his bed eating dinner.
[2020-03-03] MEDS: olanzapine 10mg tablet PO SCH (20:37)
[2020-03-03] MEDS: quetiapine 100mg tablet PO SCH (20:37)
--- NOTE | 2020-03-03 22:43 | NUR ---
The patient is lying in bed trying to get to sleep. No complaints at this time.
--- NOTE | 2020-03-04 00:41 | NUR ---
Patient is sleeping on his left side.
--- NOTE | 2020-03-04 03:15 | NUR ---
The patient is sleeping on his right side. Respirations are even and unlabored. No s/s of distress.
--- NOTE | 2020-03-04 06:03 | NUR ---
Patient awake after having vitals taken
--- NOTE | 2020-03-04 07:00 | NUR ---
pt is resting
[2020-03-04] MEDS: famotidine 20mg tablet PO SCH ×2 (07:59→20:37)
[2020-03-04] MEDS: lithium carbonate 150mg capsule PO SCH ×2 (07:59→20:42)
[2020-03-04] MEDS: LORazepam 1 MG tablet PO SCH ×2 (07:59→20:36)
[2020-03-04] MEDS: QUEtiapine 25mg tablet PO SCH (07:59)
--- NOTE | 2020-03-04 08:00 | NUR ---
pt is resting
--- NOTE | 2020-03-04 09:00 | NUR ---
pt is resting
--- NOTE | 2020-03-04 10:12 | NUR ---
no issues at this time
--- NOTE | 2020-03-04 11:00 | NUR ---
called the [facility] regarding placement
--- NOTE | 2020-03-04 12:00 | NUR ---
pt is resting in his room
--- NOTE | 2020-03-04 13:00 | NUR ---
pt is resting
--- NOTE | 2020-03-04 14:37 | NUR ---
pt is ambulating around. no issues at this time
--- NOTE | 2020-03-04 19:00 | NUR ---
Patient is ambulating the unit. He is cooperative with mild anxiety. Patient finished his dinner in full.
[2020-03-04] MEDS: quetiapine 100mg tablet PO SCH (20:36)
[2020-03-04] MEDS: olanzapine 10mg tablet PO SCH (20:37)
--- NOTE | 2020-03-04 21:00 | NUR ---
Naresh requested by patient for indigestion. It will be requested of the provider.
[2020-03-04] MEDS ORDERED: mag hydrox/Alum hydrox/simeth 30ml oral suspension PO ONE (21:05)
--- NOTE | 2020-03-04 22:00 | NUR ---
Patient is sleeping quietly in bed, no distress noted.
--- NOTE | 2020-03-04 22:56 | NUR ---
Patient is sleeping quietly, low fowlers position in bed.
--- NOTE | 2020-03-05 01:49 | NUR ---
Patient sleeping on his right side. No distress.
--- NOTE | 2020-03-05 02:51 | NUR ---
Patient sleeping quietlly on his right side. No distress. Patient has self repositioned.
--- NOTE | 2020-03-05 03:16 | NUR ---
Patient sleeping quietly, supine position in bed.
--- NOTE | 2020-03-05 05:50 | NUR ---
Patient sleeping in supine position, no distress.
--- NOTE | 2020-03-05 07:00 | NUR ---
PT IS RESTING
--- NOTE | 2020-03-05 08:00 | NUR ---
PT IS EATING HIS BREAKFAST
[2020-03-05] MEDS: famotidine 20mg tablet PO SCH ×2 (08:14→20:00)
[2020-03-05] MEDS: LORazepam 1 MG tablet PO SCH ×2 (08:14→20:37)
[2020-03-05] MEDS: QUEtiapine 25mg tablet PO SCH (08:14)
[2020-03-05] MEDS: lithium carbonate 150mg capsule PO SCH ×2 (08:14→20:39)
--- NOTE | 2020-03-05 09:00 | NUR ---
PT IS LAYING IN HIS BED. NO ISSUES
--- NOTE | 2020-03-05 10:00 | NUR ---
PT IS RESTING
--- NOTE | 2020-03-05 11:00 | NUR ---
PT IS RESTING
--- NOTE | 2020-03-05 12:00 | NUR ---
PT HAS BEEN VERY PLEASANT. HE IS TALKING WITH STAFF.
--- NOTE | 2020-03-05 13:00 | NUR ---
PT IS EATING LUNCH
--- NOTE | 2020-03-05 14:46 | NUR ---
PT IS WATCHING A MOVIE
--- NOTE | 2020-03-05 16:00 | NUR ---
PT IS RESTING. NO ISSUES AT THIS TIME
--- NOTE | 2020-03-05 17:00 | NUR ---
PT IS RESTING. NO ISSUES AT THIS TIME
--- NOTE | 2020-03-05 18:19 | NUR ---
PT IS RESTING. NO ISSUES AT THIS TIME
[2020-03-05] MEDS: olanzapine 10mg tablet PO SCH (20:37)
[2020-03-05] MEDS: quetiapine 100mg tablet PO SCH (20:37)
--- NOTE | 2020-03-05 20:56 | NUR ---
patient is sleeping undisturbed.
[2020-03-05] MEDS: polyethylene glycol 3350 17gm powd pack PO SCH (21:03)
[2020-03-05] MEDS ORDERED: diphenhydrAMINE 50 mg/ml inj IM ONE (21:40)
--- NOTE | 2020-03-05 23:54 | NUR ---
patient is sleeping undisturbed.
--- NOTE | 2020-03-06 02:46 | NUR ---
patient is sleeping undisturbed.
--- NOTE | 2020-03-06 06:21 | NUR ---
Received report from Patrick
--- NOTE | 2020-03-06 06:59 | NUR ---
Pt is still sleeping comfortably
--- NOTE | 2020-03-06 07:59 | NUR ---
Pt has reositioned himself in bed but continues to sleep
--- NOTE | 2020-03-06 09:01 | NUR ---
Pt ate breakfast, polite, awaiting meds from pharmacy
--- NOTE | 2020-03-06 09:35 | NUR ---
primary nurse asiya called the pharmacy regarding pt meds but nobody came to drop the am meds,called again by me spoke to adri in pharmacy as per her it shd be in [facility] rechecked it not there notified the pharmacy ,they said they will bring .pharmacy student here to restock meds .primary nurse aware .
[2020-03-06] MEDS: LORazepam 1 MG tablet PO SCH ×2 (09:49→20:11)
[2020-03-06] MEDS: famotidine 20mg tablet PO SCH ×2 (09:50→20:11)
[2020-03-06] MEDS: quetiapine 100mg tablet PO SCH ×2 (09:50→20:11)
[2020-03-06] MEDS: lithium carbonate 150mg capsule PO SCH ×2 (09:50→20:11)
[2020-03-06] MEDS: QUEtiapine 25mg tablet PO SCH (09:52)
--- NOTE | 2020-03-06 10:30 | NUR ---
Pt was cooperative with [employer], stated he wanted to go back to sleep immediately after. New ID band placed on pt. Pt is polite, mood is boorish, surly. Pt does not have complaintsm or concerns at this time.
--- NOTE | 2020-03-06 12:57 | NUR ---
Pt is resting comfortably on his bed, asks for a donut and water, pt performs hygiene care, uses the restroom and waits for lunch, pt is pleasant, polite and does not express concerns at this time
--- NOTE | 2020-03-06 13:15 | NUR ---
Pt ate lunch and promptly returned to napping, pt did not voice any concerns while awake, pt's affect is flat, communicates only to have his needs met
[2020-03-06] MEDS ORDERED: acetaminophen 325mg tablet PO ONE (13:55)
--- NOTE | 2020-03-06 14:49 | NUR ---
Pt is awake up and hyperverbal. Pt approaches nurse's station initiating appropriate conversations regarding television programming, likes and dislikes, pt indicated he was picked up by his dad in [place] then he went to [place] before he came here for placement. Pt did not provide additional details of what perpetuated his stay here.
--- NOTE | 2020-03-06 15:17 | NUR ---
Pt is up to the nurse's station engaging in conversation. Pt was requesting to go to [facility] but stated he got "kicked out of there for attempting to have sex with a female patient". Pt called his conservator and inquired about placement options. Pt stated he was kicked out of [facility] in [place] for leaving with out permission, obtaining alcohol and bringing it back to the facility. Pt made a comment about not being able to go back to any of the [facility] locations. Pt is intrusive but pleasant and friendly.
--- NOTE | 2020-03-06 16:06 | NUR ---
Pt continues to engage staff and peers in conversation, switching topics frequently, discusses getting a job, wanting to "go constitution party', "hang with the ladies", "go to a motel". Pt discusses calling his technical publications writer and trying to get off conservatorship. Pt indicated this is year three that he has been conserved.
--- NOTE | 2020-03-06 16:36 | NUR ---
Pt continues to engage in conversation, discussing such things as number of stints in retirement, crimes he's committed, wanting to get out of here so he can "get a girlfriend, get a job and have a baby".
--- NOTE | 2020-03-06 17:17 | NUR ---
Pt continues to be hyperverbal, has remained appropriate but can be very intrusive, no new concerns at this time
--- NOTE | 2020-03-06 19:07 | NUR ---
The patient has been restless but cooperative. He attempts to frequently engage socially with staff. He accepts redirection as needed. He had made complaints earlier in the day about having so many pills to make up his dose and the pharmacy was contacted and they were unable to provide a higher mg dose per tablet at this time. The patient denies psychotic symptoms. He denies thoughts to harm himself or others. He denies side effects to medications. He stated "I'm a little nervous. I want to be the best I can to get through this covid thing" He believes or hopes he will be accepted up to the [facility] unit. [facility] contacted and they have no plans to take the patient that they are aware of.
[2020-03-06] MEDS: polyethylene glycol 3350 17gm powd pack PO SCH (20:10)
[2020-03-06] MEDS: olanzapine 10mg tablet PO SCH (20:11)
--- NOTE | 2020-03-06 21:55 | NUR ---
The patient is sitting quietly on his bed.
--- NOTE | 2020-03-07 01:47 | NUR ---
The patient appears to be sleeping
--- NOTE | 2020-03-07 02:57 | NUR ---
The patient appears to be sleeping
--- NOTE | 2020-03-07 03:59 | NUR ---
Report received and assumed care. Pt resting quietly, respirations normal, no s/s of distress.
[2020-03-07] MEDS: QUEtiapine 25mg tablet PO SCH (08:40)
[2020-03-07] MEDS: LORazepam 1 MG tablet PO SCH ×2 (08:40→21:08)
[2020-03-07] MEDS: quetiapine 100mg tablet PO SCH ×2 (08:40→21:08)
[2020-03-07] MEDS: famotidine 20mg tablet PO SCH ×2 (08:41→21:08)
[2020-03-07] MEDS: lithium carbonate 150mg capsule PO SCH ×2 (08:41→21:08)
--- NOTE | 2020-03-07 12:39 | NUR ---
Patient awake and walking around and asking when lunch will be.
--- NOTE | 2020-03-07 13:12 | NUR ---
Patient awake in bed and just finished lunch.
--- NOTE | 2020-03-07 14:13 | NUR ---
Patient awake in bed.
--- NOTE | 2020-03-07 15:01 | NUR ---
Patient pacing and asking for snacks. Patient super talkative at this time.
--- NOTE | 2020-03-07 16:01 | NUR ---
Patient awake and sitting comfortably in bed. Patient keeps asking when bed upstairs will be available.
--- NOTE | 2020-03-07 17:02 | NUR ---
Patient awake in bed.
--- NOTE | 2020-03-07 18:15 | NUR ---
Patient sitting in chair with table in front of him. Will continue to monitor.
[2020-03-07] MEDS ORDERED: acetaminophen 325mg tablet PO ONE (19:00)
--- NOTE | 2020-03-07 19:00 | NUR ---
Excessive fluid intake apparent. Pt. has had about 2-3L of water in the last 1 hour. Per staff, pt. consumes about 20L per shift easily. He does urinate frequently. Pt. is on lithium and sodium/lithium levels is of great concern. made aware of situation. N.O. received for stat CMP and lithium levels.
--- NOTE | 2020-03-07 20:35 | NUR ---
Lab results reviewed with MD and no new orders at this time. Pt. educated on maintaining a balanced intake of fluids to prevent complications with current medication regimen.
[2020-03-07 20:45] LABS: ALBUMIN 3.9 G/DL (3.4-5.0); ANION GAP 8 (8-16); BLOOD UREA NITROGEN 13 MG/DL (7-18); BUN/CREATININE RATIO 12.3 (5.4-32.0); CHLORIDE 102 MMOL/L (99-107); CREATININE 1.06 MG/DL (0.60-1.10); GLUCOSE 104 MG/DL (70-104); SODIUM 139 MMOL/L (135-145); TOTAL CARBON DIOXIDE 29.5 MMOL/L (24-32); eGFR 84 ML/MIN
[2020-03-07 20:46] LABS: POTASSIUM 4.4 MMOL/L (3.5-5.1)
[2020-03-07] MEDS: olanzapine 10mg tablet PO SCH (21:08)
[2020-03-07] MEDS: polyethylene glycol 3350 17gm powd pack PO SCH (21:08)
--- NOTE | 2020-03-07 21:30 | NUR ---
Pt. is constantly on a hypomanic/heightened state. He makes frequent requests and speaks in fast rapid speech at times. He also makes loud comments and even instigated an argument with another pt. He was accusatory of being "looked at" and threatened by a patient who is not really within his line of sight. Pt. redirected and reassured that he is in a safe place.
--- NOTE | 2020-03-07 22:30 | NUR ---
Pt. in bed, resting quietly. Even chest rise observed. Appears to be comfortable.
--- NOTE | 2020-03-08 06:30 | NUR ---
Pt sleeping on his left side.
--- NOTE | 2020-03-08 08:30 | NUR ---
Pt up eating breakfast. Took all his AM meds.
[2020-03-08] MEDS: QUEtiapine 25mg tablet PO SCH (08:51)
[2020-03-08] MEDS: lithium carbonate 150mg capsule PO SCH ×2 (08:51→20:02)
[2020-03-08] MEDS: quetiapine 100mg tablet PO SCH ×2 (08:51→20:01)
[2020-03-08] MEDS: LORazepam 1 MG tablet PO SCH ×2 (08:52→20:02)
[2020-03-08] MEDS: famotidine 20mg tablet PO SCH ×2 (08:52→20:06)
--- NOTE | 2020-03-08 10:30 | NUR ---
Med list, cxray, progress notes sent to Britni at [place] office per her request.
--- NOTE | 2020-03-08 12:30 | NUR ---
Woke up from his nap. Denies needs at this time.
--- NOTE | 2020-03-08 14:30 | NUR ---
Pt has been very active, talking and walking around unit. Encouraged to lay in bed and try relax.
--- NOTE | 2020-03-08 16:30 | NUR ---
Pt is now napping.
[2020-03-08] MEDS ORDERED: LORazepam 1 MG tablet PO ONE (17:10)
--- NOTE | 2020-03-08 19:00 | NUR ---
Pt sitting up in chair, talkative with staff. Pt up to restroom twice and asked to use the phone twice. Pt up pacing, stating that he just woke up and was given an ativan and "it hasn't kicked in yet". Pt slighly anxious but redirectable. Cooperative.
--- NOTE | 2020-03-08 19:15 | NUR ---
Pt requesting a sandwich.
--- NOTE | 2020-03-08 19:20 | NUR ---
Pt requesting tylenol for tooth pain. Pt states that he has a cracked tooth, diagnosed two months ago.
[2020-03-08] MEDS ORDERED: acetaminophen 325mg tablet PO ONE (19:25)
[2020-03-08] MEDS: olanzapine 10mg tablet PO SCH (20:01)
[2020-03-08] MEDS: polyethylene glycol 3350 17gm powd pack PO SCH (20:03)
--- NOTE | 2020-03-08 21:29 | NUR ---
Pt requesting quietly, respirations normal, no s/s of distress.
--- NOTE | 2020-03-08 21:44 | NUR ---
Pt soiled his pants and requested a clean pair of pants.
--- NOTE | 2020-03-08 23:00 | NUR ---
Pt requesting quietly, respirations normal, no s/s of distress.
--- NOTE | 2020-03-09 00:05 | NUR ---
Pt requesting quietly, respirations normal, no s/s of distress.
--- NOTE | 2020-03-09 01:00 | NUR ---
Pt requesting quietly, respirations normal, no s/s of distress.
--- NOTE | 2020-03-09 02:00 | NUR ---
Pt requesting quietly, respirations normal, no s/s of distress.
--- NOTE | 2020-03-09 03:00 | NUR ---
Pt requesting quietly, respirations normal, no s/s of distress.
--- NOTE | 2020-03-09 04:02 | NUR ---
Pt requesting quietly, respirations normal, no s/s of distress.
--- NOTE | 2020-03-09 05:33 | NUR ---
Pt requesting quietly, respirations normal, no s/s of distress.
--- NOTE | 2020-03-09 06:30 | NUR ---
PT RESTING QUIETLY.
--- NOTE | 2020-03-09 07:58 | NUR ---
PT SITTING IN CHAIR IN FRONT OF BED AND GIVEN BREAKFAST TRAY.
[2020-03-09] MEDS: famotidine 20mg tablet PO SCH ×2 (08:00→20:02)
--- NOTE | 2020-03-09 08:01 | NUR ---
PT USING THE BATHROOM.
[2020-03-09] MEDS: LORazepam 1 MG tablet PO SCH ×2 (08:11→20:03)
[2020-03-09] MEDS: quetiapine 100mg tablet PO SCH ×2 (08:11→20:03)
[2020-03-09] MEDS: QUEtiapine 25mg tablet PO SCH (08:11)
[2020-03-09] MEDS: lithium carbonate 150mg capsule PO SCH ×2 (08:12→20:02)
--- NOTE | 2020-03-09 09:00 | NUR ---
PT SLEEPING, NO S/S DISTRESS.
--- NOTE | 2020-03-09 13:00 | NUR ---
PT GIVEN LUNCH TRAY. CONSUMES ALL. INSTRUCT PT TO NOT FILL HIS OWN WATER PITCHER FROM THE [facility]. PLEASE ASK THE NURSE OR TECH.
--- NOTE | 2020-03-09 14:08 | NUR ---
PT HAS EATEN LUNCH AND ASKING FOR COFFEE. PT GIVEN DECAF.
--- NOTE | 2020-03-09 14:11 | NUR ---
PT WANTING TO SHAVE ALSO. WAITING FOR BATHROOM TO BE AVAILABLE.
--- NOTE | 2020-03-09 14:29 | NUR ---
PT COMES TO NURSES STATION WONDERING IF HE IS GOING UPSTAIRS OR WHERE HE WILL BE PLACED. HE WILL CALL HIS CONSERVITOR TOMORROW TO GET MORE INFO.
--- NOTE | 2020-03-09 14:39 | NUR ---
PT FINISHED SHAVING AND BATHING. NOW WALKING UP AND DOWN THE HALLWAY.
--- NOTE | 2020-03-09 16:00 | NUR ---
PT GIVEN LIGHT SNACK AND JUICE.
--- NOTE | 2020-03-09 17:01 | NUR ---
PT ASKING FOR ANOTHER REFILL ON HIS WATER PITCHER, INFORM HIM NOT NOW. HE JUST DRANK A JUICE AND 2 JELLOS AND A MILK.
--- NOTE | 2020-03-09 19:13 | NUR ---
Patient ambulated to bathroom to void. Patient request multiple containers of water. Patient advised he could have a container of water but would have to control his consumption. Patient will be allowed a cup of tea also. Patients bed is in direct view from the nursing station.
--- NOTE | 2020-03-09 19:25 | NUR ---
Patient is given hot tea and a pitcher of ice water for the evening. A chair was removed from bedside for safety reasons. Patient is offered crackers which he declines. Patient is linear at this time. He is dressed in unit attire. Patient exhibits minor agitation. He is cooperative.
[2020-03-09] MEDS: polyethylene glycol 3350 17gm powd pack PO SCH (20:00)
[2020-03-09] MEDS: olanzapine 10mg tablet PO SCH (20:03)
--- NOTE | 2020-03-09 21:13 | NUR ---
Patient has given crackers and additional water. Patient cautioned over consumption of water could be a physical problem. Patient has consumed three pitcures of water. Patient is encouraged to slow consumption.
--- NOTE | 2020-03-09 22:12 | NUR ---
Patient is now sleeping intermittently. In view from nursing station.
--- NOTE | 2020-03-09 23:45 | NUR ---
Patient is laying awake in prone position. He denies any need for a sleep aid.
--- NOTE | 2020-03-10 01:58 | NUR ---
Patient in no distress, he is resting quietly.
--- NOTE | 2020-03-10 03:59 | NUR ---
Patient sleeping in supine position. He self repositions.
--- NOTE | 2020-03-10 05:12 | NUR ---
Patient is sleeping on his right side in bed. No distress noted.
--- NOTE | 2020-03-10 06:30 | NUR ---
ASSUMED CARE, SLEEPING AT THSIS TIME.
--- NOTE | 2020-03-10 07:30 | NUR ---
PATIENT SLEEPING IN BED, NO COMPLAINTS.
[2020-03-10] MEDS: QUEtiapine 25mg tablet PO SCH (08:12)
[2020-03-10] MEDS: LORazepam 1 MG tablet PO SCH ×2 (08:13→20:40)
[2020-03-10] MEDS: quetiapine 100mg tablet PO SCH ×2 (08:13→20:39)
[2020-03-10] MEDS: lithium carbonate 150mg capsule PO SCH ×2 (08:13→20:40)
[2020-03-10] MEDS: famotidine 20mg tablet PO SCH ×2 (08:13→20:44)
--- NOTE | 2020-03-10 08:30 | NUR ---
PATIENT UP EATING BREAKFAST, NO COMPLAINTS. TOOK MEDS WELL.
--- NOTE | 2020-03-10 09:30 | NUR ---
RESTING IN BED WITH EYES CLOSED, NO COMPLAINTS NOTED.
--- NOTE | 2020-03-10 10:21 | NUR ---
BREAKING PRIMARY RN, PT IS SITTING UP IN BED, AWAKE, CALM, NO NEEDS AT THIS TIME
--- NOTE | 2020-03-10 11:34 | NUR ---
PATIENT REQUESTING SNACKS, CALM AND COOPERATIVE.
--- NOTE | 2020-03-10 13:02 | NUR ---
Up to BR, lunch at bedside, eats 100% of meals. No complaints at this time.
--- NOTE | 2020-03-10 14:57 | NUR ---
Patient resting in bed, continually asks for snacks and water. Calm/cooperative. Will cont. to monitor.
--- NOTE | 2020-03-10 16:00 | NUR ---
Up to BR, will cont. to monitor.
--- NOTE | 2020-03-10 17:31 | NUR ---
Patient using phone, will cont. to monitor.
--- NOTE | 2020-03-10 18:47 | NUR ---
Assumed care of pt from FEDERICO Mathur. No changes to report. Agree with previous assessment. Pt sitting upright on bed, eating dinner at this time. In no apparent distress.
[2020-03-10] MEDS: polyethylene glycol 3350 17gm powd pack PO SCH (19:20)
--- NOTE | 2020-03-10 20:27 | NUR ---
Pt up watching movie.
[2020-03-10] MEDS ORDERED: mag hydrox/Alum hydrox/simeth 30ml oral suspension PO ONE (20:35)
[2020-03-10] MEDS: olanzapine 10mg tablet PO SCH (20:40)
--- NOTE | 2020-03-10 22:29 | NUR ---
Pt resting comfortably at this time. In no distress.
--- NOTE | 2020-03-10 23:11 | NUR ---
Pt resting comfortably. No changes.
--- NOTE | 2020-03-11 00:44 | NUR ---
Pt resting comfortably. No changes.
--- NOTE | 2020-03-11 02:24 | NUR ---
Pt resting comfortably. No changes.
--- NOTE | 2020-03-11 03:32 | NUR ---
Pt resting comfortably. No changes.
--- NOTE | 2020-03-11 04:40 | NUR ---
Pt resting comfortably. No changes.
--- NOTE | 2020-03-11 05:56 | NUR ---
No new changes. Resting with eyes closed in POC.
--- NOTE | 2020-03-11 07:00 | NUR ---
Resting in bed with eyes closed
[2020-03-11] MEDS: lithium carbonate 150mg capsule PO SCH ×2 (09:12→20:03)
[2020-03-11] MEDS: LORazepam 1 MG tablet PO SCH ×2 (09:12→20:02)
[2020-03-11] MEDS: famotidine 20mg tablet PO SCH ×2 (09:12→20:02)
[2020-03-11] MEDS: quetiapine 100mg tablet PO SCH ×2 (09:12→20:02)
[2020-03-11] MEDS: QUEtiapine 25mg tablet PO SCH (09:14)
--- NOTE | 2020-03-11 09:30 | NUR ---
Resting in bed, ate breakfast and took his medications.
--- NOTE | 2020-03-11 11:30 | NUR ---
Up to bathroom to void, states he is hungry and would like a sandwich or snack
--- NOTE | 2020-03-11 15:57 | NUR ---
Resting with eyes closed
--- NOTE | 2020-03-11 19:27 | NUR ---
The patient is complaining of tooth pain in the upper left side 12/18. PA made aware and orders received.
[2020-03-11] MEDS ORDERED: acetaminophen 325mg tablet PO ONE (19:30)
--- NOTE | 2020-03-11 19:39 | NUR ---
The patient has been pleasant and cooperative. He is polite with peers. He stated he feels bored. When asked how his mood was he stated, "Organized" He stated that he is having a toothache on a molar on the left upper side. He denied voices.
[2020-03-11] MEDS: olanzapine 10mg tablet PO SCH (20:02)
[2020-03-11] MEDS: polyethylene glycol 3350 17gm powd pack PO SCH (20:03)
--- NOTE | 2020-03-11 20:37 | NUR ---
The patient is up to the nursing station to interact with staff. The patient is restless and bored and is anxious to be discharged to placement.
--- NOTE | 2020-03-11 20:59 | NUR ---
PT CONTINUES TO AMBULATE IN HALLWAY. RETURNED TO HIS BEDSIDE TO DRINK WATER AND IS NOW PACING AGAIN. PT INTERMITTENTLY TALKING WITH STAFF.
--- NOTE | 2020-03-11 22:56 | NUR ---
The patient appears to be sleeping
--- NOTE | 2020-03-12 00:25 | NUR ---
The patient currently appears to be sleeping but has been very restless
--- NOTE | 2020-03-12 02:40 | NUR ---
The patient appears to be sleeping.
--- NOTE | 2020-03-12 06:00 | NUR ---
PT IS SLEEPING
--- NOTE | 2020-03-12 07:00 | NUR ---
PT IS AWAKE. HE STATES HE IS VERY HUNGRY
--- NOTE | 2020-03-12 08:00 | NUR ---
PT IS EATING HIS BREAKFAST. PT IS TALKING WITH STAFF.
[2020-03-12] MEDS: LORazepam 1 MG tablet PO SCH ×2 (08:22→21:00)
[2020-03-12] MEDS: famotidine 20mg tablet PO SCH ×2 (08:22→21:37)
[2020-03-12] MEDS: QUEtiapine 25mg tablet PO SCH (08:22)
[2020-03-12] MEDS: quetiapine 100mg tablet PO SCH ×2 (08:22→21:01)
[2020-03-12] MEDS: lithium carbonate 150mg capsule PO SCH ×2 (08:23→21:37)
--- NOTE | 2020-03-12 09:00 | NUR ---
PT IS WALKING AROUND. NO ISSUES
--- NOTE | 2020-03-12 10:00 | NUR ---
PT IS WALKING AROUND THE UNIT. PT WOULD LIKE TO KNOW WHEN HE IS GOING TO BE PLACED
--- NOTE | 2020-03-12 11:00 | NUR ---
PT IS RESTINGING IN HIS BED. NO ISSUES AT THIS TIME
--- NOTE | 2020-03-12 12:00 | NUR ---
PT IS RESTING. NO ISSUES AT THIS TIME
--- NOTE | 2020-03-12 13:00 | NUR ---
PT IS WALKING AROUND. HE IS PRETTY RESTLESS. PT KEEPS ASKING WHEN HE CAN LEAVE.
--- NOTE | 2020-03-12 14:13 | NUR ---
PATIENT UP TO THE BATHROOM.
--- NOTE | 2020-03-12 15:00 | NUR ---
PT IS TALKING WITH STAFF. NO ISSUES. PT IS VERY CALM
--- NOTE | 2020-03-12 16:00 | NUR ---
PT IS RESTING IN HIS ROOM. NO ISSUES AT THIS TIME
--- NOTE | 2020-03-12 17:00 | NUR ---
PT IS LAYING IN HIS ROOM NO ISSUES AT THIS TIME
--- NOTE | 2020-03-12 19:00 | NUR ---
Client awake and alert. Talking with other patients. Repeatedly asked about PM meds. This RN explained when meds would be given. Client is cooperative.
[2020-03-12] MEDS: polyethylene glycol 3350 17gm powd pack PO SCH (21:00)
[2020-03-12] MEDS: olanzapine 10mg tablet PO SCH (21:00)
--- NOTE | 2020-03-12 21:00 | NUR ---
Client walking back and forth in front of the RN station. Client returned to his bed and talked with client in the next bed. Client asked about PM meds. Requested apple juice, it was given to client with PM meds. Client is cooperative.
--- NOTE | 2020-03-12 22:48 | NUR ---
Client resting in bed, eye's closed. Respirations even.
--- NOTE | 2020-03-13 00:36 | NUR ---
Resting in bed, eye's closed. Resp even.
--- NOTE | 2020-03-13 02:00 | NUR ---
Client raised the HOB to 45, and is sleeping on the lower half of his bed. He is lying on his back, snoring. Resp even.
--- NOTE | 2020-03-13 04:00 | NUR ---
Resting, eye's closed. Resp even.
--- NOTE | 2020-03-13 05:53 | NUR ---
Client is resting, eye's closed. Resp even.
--- NOTE | 2020-03-13 06:30 | NUR ---
Pt in bed sleeping on right side.
[2020-03-13] MEDS: QUEtiapine 25mg tablet PO SCH (08:17)
[2020-03-13] MEDS: LORazepam 1 MG tablet PO SCH ×2 (08:17→20:28)
[2020-03-13] MEDS: quetiapine 100mg tablet PO SCH ×2 (08:17→20:29)
[2020-03-13] MEDS: lithium carbonate 150mg capsule PO SCH ×2 (08:18→20:28)
[2020-03-13] MEDS: famotidine 20mg tablet PO SCH ×2 (08:23→20:28)
--- NOTE | 2020-03-13 08:30 | NUR ---
Woke up to eat breakfast, take pills. Answers questions appropriately.
--- NOTE | 2020-03-13 10:30 | NUR ---
Sleeping on left side.
--- NOTE | 2020-03-13 13:00 | NUR ---
PT UP TO BR
--- NOTE | 2020-03-13 14:30 | NUR ---
Pt speaking with Reba, director of [facility] regarding possibility of being accepted upstairs.
[2020-03-13] MEDS ORDERED: acetaminophen 325mg tablet PO ONE (17:25)
--- NOTE | 2020-03-13 19:00 | NUR ---
Received pt lying in bed without complaints. Pt did get up and request to go outside. He was calm when told that could not happen.
[2020-03-13] MEDS: olanzapine 10mg tablet PO SCH (20:28)
[2020-03-13] MEDS: polyethylene glycol 3350 17gm powd pack PO SCH (20:28)
--- NOTE | 2020-03-13 21:00 | NUR ---
Pt quiet and resting in bed without complaints. Pt did take all hs medication and now currently appears to be sleeping without signs of distress.
--- NOTE | 2020-03-14 02:01 | NUR ---
pt resting in bed. no s/s of distress or pain. respiratory rate of 16. pt sleeping on back. will continue to monitor.
--- NOTE | 2020-03-14 03:30 | NUR ---
Pt remains asleep peacefully without signs of distress.
--- NOTE | 2020-03-14 05:24 | NUR ---
Pt continues to rest quietly, eyes closed, without complaints.
--- NOTE | 2020-03-14 07:19 | NUR ---
PT RESTING ON RIGHT SIDE RR EQUAL AND UNLABORED
[2020-03-14] MEDS: quetiapine 100mg tablet PO SCH ×2 (08:19→20:26)
[2020-03-14] MEDS: famotidine 20mg tablet PO SCH ×2 (08:19→20:26)
[2020-03-14] MEDS: LORazepam 1 MG tablet PO SCH ×2 (08:19→20:26)
[2020-03-14] MEDS: QUEtiapine 25mg tablet PO SCH (08:19)
[2020-03-14] MEDS: lithium carbonate 150mg capsule PO SCH ×2 (08:20→20:27)
--- NOTE | 2020-03-14 09:24 | NUR ---
PT RESTING ON RIGHT SIDE RR EQUAL AND UNLABORED. PT ATE BREAKFAST.
--- NOTE | 2020-03-14 12:04 | NUR ---
PT UP TO BR STEADY GAIT
--- NOTE | 2020-03-14 12:31 | NUR ---
PT WOKE UP USED BATHROOM AND THEN LAID BACK DOWN IN BED
--- NOTE | 2020-03-14 14:45 | NUR ---
pt sleeping comfortably
--- NOTE | 2020-03-14 16:58 | NUR ---
PT UP TO BR WITHOUT NEED AT THIS TIME.
--- NOTE | 2020-03-14 17:46 | NUR ---
PT IN BED AWAKE RESTING COMFORTABLY IN NO APPARENT DISTRESS
--- NOTE | 2020-03-14 19:07 | NUR ---
PT CONTINUES TO COME UP TO NURSES STATION AND ASK FOR DRINKS, TO GO OUTSIDE, WHEN HES GETTING TRANSFERED ECT.
--- NOTE | 2020-03-14 19:45 | NUR ---
Pt pacing in front of nurse's station. Pt making no attempt at exiting the unit.
[2020-03-14] MEDS: polyethylene glycol 3350 17gm powd pack PO SCH (20:25)
[2020-03-14] MEDS: olanzapine 10mg tablet PO SCH (20:26)
--- NOTE | 2020-03-14 21:23 | NUR ---
breaking primary RN- will cont to monitor.
--- NOTE | 2020-03-14 21:58 | NUR ---
pt resting comfortably sleeping
--- NOTE | 2020-03-15 06:16 | NUR ---
Patient sleeping on left side. No distress observed. Continue to monitor.
--- NOTE | 2020-03-15 08:40 | NUR ---
Patient sitting up and eating breakfast. No distress observed. Continue to monitor.
[2020-03-15] MEDS: QUEtiapine 25mg tablet PO SCH (08:41)
[2020-03-15] MEDS: LORazepam 1 MG tablet PO SCH ×2 (08:42→20:12)
[2020-03-15] MEDS: quetiapine 100mg tablet PO SCH ×2 (08:42→20:16)
[2020-03-15] MEDS: famotidine 20mg tablet PO SCH ×2 (08:42→20:14)
[2020-03-15] MEDS: lithium carbonate 150mg capsule PO SCH ×2 (08:43→20:12)
--- NOTE | 2020-03-15 10:10 | NUR ---
Patient continues to sleep. Patient laying on right side. No distress observed. Continue to monitor.
--- NOTE | 2020-03-15 11:45 | NUR ---
Patient continues to sleep. No distress observed. Continue to monitor.
--- NOTE | 2020-03-15 13:21 | NUR ---
Patient eating lunch. Patient is very quiet today. Continue to monitor.
--- NOTE | 2020-03-15 15:27 | NUR ---
Patient sleeping on left side. No distress observed. Continue to monitor.
--- NOTE | 2020-03-15 16:24 | NUR ---
patient on bed awake.We will continue to monitor.
--- NOTE | 2020-03-15 18:30 | NUR ---
Patient sitting up in bed. He frequently drinks water, gets out of bed and paces. In direct view from nursing station.
--- NOTE | 2020-03-15 19:30 | NUR ---
Patient gets up frequently, goes to bathroom, returns to bed, he then repeats this pattern.
--- NOTE | 2020-03-15 20:01 | NUR ---
PT REQUESTS A CHANGE OF SCRUBS, NEW SCRUBS GIVEN TO PT
[2020-03-15] MEDS: olanzapine 10mg tablet PO SCH (20:14)
--- NOTE | 2020-03-15 20:40 | NUR ---
Patient is medication compliant. No distress. Patient is frequently being redirected to bed.
[2020-03-15] MEDS: polyethylene glycol 3350 17gm powd pack PO SCH (21:00)
--- NOTE | 2020-03-15 21:36 | NUR ---
Patient continues to remain awake, minor agitation. Patient craves frequent water. Patient has consumed approx 2000 ml this evening so far.
--- NOTE | 2020-03-15 22:30 | NUR ---
Patient is sleeping quietly in a supine position.
--- NOTE | 2020-03-16 01:54 | NUR ---
Patient sleeping, no distress. He self repositions in bed.
--- NOTE | 2020-03-16 03:25 | NUR ---
Patient is sleeping quietly on his right side. In view from nursing station.
--- NOTE | 2020-03-16 05:59 | NUR ---
Patient is in a prone position, sleeping quietly, bed is in mid fowlers position.
--- NOTE | 2020-03-16 07:30 | NUR ---
PT CALM AND COOPERATIVE, DENIES NEEDS AT PRESENT TIME.
--- NOTE | 2020-03-16 07:45 | NUR ---
PT RESTING WITH EYES CLOSED, EFFORTLESS RESPIRATIONS OBSERVED.
[2020-03-16] MEDS: quetiapine 100mg tablet PO SCH ×2 (08:25→20:19)
[2020-03-16] MEDS: QUEtiapine 25mg tablet PO SCH (08:25)
[2020-03-16] MEDS: LORazepam 1 MG tablet PO SCH ×2 (08:26→20:19)
[2020-03-16] MEDS: famotidine 20mg tablet PO SCH ×2 (08:26→20:19)
[2020-03-16] MEDS: lithium carbonate 150mg capsule PO SCH ×2 (08:26→20:19)
--- NOTE | 2020-03-16 09:00 | NUR ---
PT ATE 100% OF BREAKFAST TRAY AND NO SITTING QUIETLY ON BED.
--- NOTE | 2020-03-16 13:15 | NUR ---
PT SITTING UP AND EATING LUNCH TRAY.
--- NOTE | 2020-03-16 13:50 | NUR ---
PT REQUESTED TO MAKE PHONE CALL, PT TALKED ON PHONE SHORTLY AND NOW RESTING IN BED.
--- NOTE | 2020-03-16 16:07 | NUR ---
Freda argueta in [facility] - 03/16/20 at 1608 by EMANUEL VICENTE VEGAXED TO [facility], WILL SEND UA SOON
--- NOTE | 2020-03-16 16:10 | NUR ---
PT CO STOMACH "NOT FEELING WELL". RECEIVED VO FROM DR GUSTAFSON FOR MAALOX 30ML PO x 1 NOW.
[2020-03-16] MEDS ORDERED: mag hydrox/Alum hydrox/simeth 30ml oral suspension PO ONE (16:15)
[2020-03-16] MEDS: acetaminophen 325mg tablet PO PRN (16:28)
--- NOTE | 2020-03-16 16:31 | NUR ---
Pt medicated for upset stomach and tooth ache.
--- NOTE | 2020-03-16 19:01 | NUR ---
Patient ate a full dinner then returned to bed. He chooses not to speak with this advertising copy writer at this time.
--- NOTE | 2020-03-16 19:04 | NUR ---
Patient is sitting at bedside, requesting additional water. He looks to be responding to internal stimuli. The tech is tracking patients water consumption.
[2020-03-16] MEDS: olanzapine 10mg tablet PO SCH (20:19)
--- NOTE | 2020-03-16 21:27 | NUR ---
Patient was showered, then returned to bed. He is resting quietly in view from nursing station.
--- NOTE | 2020-03-16 21:34 | NUR ---
Patient is sleeping quietly in a low fowlers positon.
--- NOTE | 2020-03-16 22:51 | NUR ---
Breaking primary RN, pt. approached nurses station asking "if he could be released" and requesting "to sign himself out" pt. was advised he is on a hold and not allowed to "sign himself out". Pt. is now laying in bed, appears restless.
--- NOTE | 2020-03-17 | NUR ---
Patient is sleeping on his right side. In view from nursing station. No distress.
--- NOTE | 2020-03-17 01:50 | NUR ---
Patient sleeping in mid fowlers bed position, on his left side.
--- NOTE | 2020-03-17 03:00 | NUR ---
Patient sleeping in low fowlers position. He repositions self from time to time.
--- NOTE | 2020-03-17 05:07 | NUR ---
Patient sleeping on his right side in a low fowlers position. No distress.
--- NOTE | 2020-03-17 07:00 | NUR ---
PT IS SLEEPING. NO ISSUES AT THIS TIME
--- NOTE | 2020-03-17 08:00 | NUR ---
PT IS SLEEPING. NO ISSUES AT THIS TIME
[2020-03-17] MEDS: QUEtiapine 25mg tablet PO SCH (08:08)
[2020-03-17] MEDS: quetiapine 100mg tablet PO SCH ×2 (08:09→20:39)
[2020-03-17] MEDS: LORazepam 1 MG tablet PO SCH ×2 (08:09→20:40)
[2020-03-17] MEDS: lithium carbonate 150mg capsule PO SCH ×2 (08:09→20:39)
[2020-03-17] MEDS: famotidine 20mg tablet PO SCH ×2 (08:15→20:00)
--- NOTE | 2020-03-17 09:00 | NUR ---
PT IS SLEEPING. NO ISSUES AT THIS TIME
--- NOTE | 2020-03-17 10:00 | NUR ---
PT IS SLEEPING. NO ISSUES AT THIS TIME
--- NOTE | 2020-03-17 11:00 | NUR ---
PT IS SLEEPING. NO ISSUES AT THIS TIME
--- NOTE | 2020-03-17 12:00 | NUR ---
PT IS AWAKE. PT IS EATING LUNCH
--- NOTE | 2020-03-17 13:00 | NUR ---
PT IS WALKING AROUND. HE STATES HE IS VERY BORED. PT WANTS TO KNOW WHEN HE IS GOING TO BE PLACED
--- NOTE | 2020-03-17 14:00 | NUR ---
PT IS SLEEPING. NO ISSUES AT THIS TIME
--- NOTE | 2020-03-17 15:00 | NUR ---
PT IS TALKING WITH STAFF.
--- NOTE | 2020-03-17 16:00 | NUR ---
NO ISSUES AT THIS TIME
--- NOTE | 2020-03-17 17:34 | NUR ---
PT IS LAYING IN HIS ROOM. NO ISSUES AT THIS TIME
[2020-03-17] MEDS: olanzapine 10mg tablet PO SCH (20:39)
--- NOTE | 2020-03-17 20:47 | NUR ---
Pacing and attempting to converse with other patient's with innappropriate dialog. Patient was redirected and asked to reurn to his gurney.
[2020-03-17] MEDS: polyethylene glycol 3350 17gm powd pack PO SCH (21:00)
--- NOTE | 2020-03-17 22:03 | NUR ---
Patient has had several cups of water and copntinues to ask for more. Patient was advised that there will be no more water to drink until 0630. It was explained that he has a history of drinking water excessively and causing alterations to his electrolytes. He was offered a wet swab to moisterize his mouth.
--- NOTE | 2020-03-18 00:38 | NUR ---
patient has gotten up to use the bathroom several times. patient seems to be having difficulty falling asleep.
--- NOTE | 2020-03-18 00:43 | NUR ---
Provided patient with swabs and small ammount of water . approx 20ccs
--- NOTE | 2020-03-18 05:25 | NUR ---
patient was given water.
--- NOTE | 2020-03-18 05:38 | NUR ---
Patient has had 2 liters of water in the last 20 minutes. Patient attempted to fill his pitcher and was advised not to. He continued to fill his pticher and the nurse had to intervene and take his pitcher away
--- NOTE | 2020-03-18 06:00 | NUR ---
pt is resting. no issues at this time
--- NOTE | 2020-03-18 07:00 | NUR ---
pt is walking around. pt is very upset that he has been here for 21 days. pt keeps asking if he can go upstairs
--- NOTE | 2020-03-18 08:00 | NUR ---
pt is resting. no issues at this time
[2020-03-18] MEDS: famotidine 20mg tablet PO SCH ×2 (08:34→20:18)
[2020-03-18] MEDS: LORazepam 1 MG tablet PO SCH ×2 (08:35→20:19)
[2020-03-18] MEDS: lithium carbonate 150mg capsule PO SCH ×2 (08:35→20:18)
[2020-03-18] MEDS: quetiapine 100mg tablet PO SCH ×2 (08:35→20:19)
[2020-03-18] MEDS: QUEtiapine 25mg tablet PO SCH (08:35)
[2020-03-18 08:38] LABS: ALANINE AMINOTRANSFERASE 22 U/L (12-78); ALBUMIN 4.2 G/DL (3.4-5.0); ALBUMIN/GLOBULIN RATIO 1.1 (1.1-1.5); ALKALINE PHOSPHATASE 68 IU/L (46-116); ANION GAP 7 (8-16); ASPARTATE AMINO TRANSFERASE 9 U/L (10-37); BILIRUBIN,TOTAL 0.8 MG/DL (0.1-1.0); BLOOD UREA NITROGEN 12 MG/DL (7-18); BUN/CREATININE RATIO 12.6 (5.4-32.0); CALCIUM 9.1 MG/DL (8.5-10.1); CHLORIDE 103 MMOL/L (99-107); CREATININE 0.95 MG/DL (0.60-1.10); GLUCOSE 89 MG/DL (70-104); MAGNESIUM 2.1 MG/DL (1.5-2.4); POTASSIUM 3.8 MMOL/L (3.5-5.1); SODIUM 139 MMOL/L (135-145); TOTAL CARBON DIOXIDE 29.3 MMOL/L (24-32); eGFR > 90 ML/MIN
--- NOTE | 2020-03-18 09:00 | NUR ---
pt is resting. no issues at this time
[2020-03-18] MEDS ORDERED: magnesium hydroxide 30ml (MOM) UD suspension PO ONE (09:40)
--- NOTE | 2020-03-18 09:58 | NUR ---
called angeles mejia's conservator. message left. wating for her to return the phone call
--- NOTE | 2020-03-18 11:00 | NUR ---
pt is waking around. asking for drinks and food none stop
--- NOTE | 2020-03-18 12:00 | NUR ---
pt is resting. no issues at this time.pt is eating lunch
--- NOTE | 2020-03-18 13:00 | NUR ---
pt is resting. no issues at this time
--- NOTE | 2020-03-18 14:00 | NUR ---
pt is walking around
--- NOTE | 2020-03-18 15:00 | NUR ---
pt is asking if he can call his conservator for the 3rd time today
--- NOTE | 2020-03-18 16:00 | NUR ---
pt is resting. no issues at this time
--- NOTE | 2020-03-18 17:00 | NUR ---
pt is resting. no issues at this time
--- NOTE | 2020-03-18 18:17 | NUR ---
pt is resting. no issues at this time
[2020-03-18] MEDS: polyethylene glycol 3350 17gm powd pack PO SCH (20:01)
[2020-03-18] MEDS: olanzapine 10mg tablet PO SCH (20:18)
[2020-03-18] MEDS: mag hydrox/Alum hydrox/simeth 30ml oral suspension PO PRN (20:18)
--- NOTE | 2020-03-18 21:24 | NUR ---
PATIENT GIVEN SANDWICH AND JUICE
--- NOTE | 2020-03-18 22:00 | NUR ---
Patient pacing in front of bed, no distress. No needs at this time
--- NOTE | 2020-03-18 23:00 | NUR ---
Patient sleeping at this time no distress
--- NOTE | 2020-03-18 23:30 | NUR ---
Patient resting at this time. No needs
--- NOTE | 2020-03-19 00:30 | NUR ---
Patient up to restroom, returned to bed no needs at this time
--- NOTE | 2020-03-19 02:30 | NUR ---
Patient continuing to sleep no needs at this time.
--- NOTE | 2020-03-19 05:30 | NUR ---
Patient continuing to sleep
--- NOTE | 2020-03-19 06:00 | NUR ---
pt is sleeping. report received from mario duarte
--- NOTE | 2020-03-19 07:00 | NUR ---
pt is sleeping in his bed. no issues at this time
[2020-03-19] MEDS: famotidine 20mg tablet PO SCH ×2 (07:53→20:16)
[2020-03-19] MEDS: QUEtiapine 25mg tablet PO SCH (07:53)
[2020-03-19] MEDS: lithium carbonate 150mg capsule PO SCH ×2 (07:53→20:17)
[2020-03-19] MEDS: LORazepam 1 MG tablet PO SCH ×2 (07:53→20:15)
[2020-03-19] MEDS: quetiapine 100mg tablet PO SCH ×2 (07:53→20:16)
--- NOTE | 2020-03-19 09:00 | NUR ---
PT IS SLEEPING
--- NOTE | 2020-03-19 10:00 | NUR ---
CALLED THE [facility] OFFICE ABOUT POSS PLACEMENT AT THE [facility] THAT OPENED YESTERDAY. THEY WILL LOOK INTO IT
--- NOTE | 2020-03-19 11:02 | NUR ---
called the hospital CNO regarding Brian placement. according the [facility] office every facility in [facility] has refused to accept him. the [facility] still refuses to accept the patient.
--- NOTE | 2020-03-19 11:54 | NUR ---
pt is being polite and respectful. no issues at this time.
--- NOTE | 2020-03-19 12:44 | NUR ---
pt packet sent to [facility]
--- NOTE | 2020-03-19 13:00 | NUR ---
pt is sitting on his bed. no issues.
--- NOTE | 2020-03-19 14:00 | NUR ---
pt is eating lunch. no concerns.
--- NOTE | 2020-03-19 15:00 | NUR ---
pt is watching a movie.
--- NOTE | 2020-03-19 16:00 | NUR ---
pt is sitting by the nurse's station and watching a movie.
--- NOTE | 2020-03-19 17:00 | NUR ---
pt continues to watch his movie. pt is laughing and joking with staff.
--- NOTE | 2020-03-19 18:07 | NUR ---
pt resting in his room
--- NOTE | 2020-03-19 19:00 | NUR ---
Pt is talkative, socializes with staff appropriately and eats dinner tray.
[2020-03-19] MEDS ORDERED: PHENYLEPH/MIN OIL/PETROLAT hemorrhoid oint 57GM tube RC PRN (19:25)
[2020-03-19] MEDS: olanzapine 10mg tablet PO SCH (20:18)
[2020-03-19] MEDS: polyethylene glycol 3350 17gm powd pack PO SCH (20:19)
--- NOTE | 2020-03-19 20:33 | NUR ---
Pt reports having hemorrhoids, and reports pain. Major-Prep PRN ordered per RAJNI Garza. Pt takes HS medications withouit incident.
--- NOTE | 2020-03-19 21:18 | NUR ---
PTuses the restroom. He requests to color. Pt given a few crayons and coloring paper.
--- NOTE | 2020-03-19 23:00 | NUR ---
Pt laying in bed quietly, goes to the restroom and returns.
--- NOTE | 2020-03-20 01:37 | NUR ---
Pt asleep in bed on L side, RR 16
--- NOTE | 2020-03-20 03:20 | NUR ---
Pt asleep on R side, RR 16
--- NOTE | 2020-03-20 05:39 | NUR ---
Pt sleeping on stomach, RR14 even and unlabored
--- NOTE | 2020-03-20 06:54 | NUR ---
PT IS SLEEPING, NO S/S DISTRESS.
--- NOTE | 2020-03-20 09:10 | NUR ---
PT REFUSING HIS BLOOD DRAW, CONTINUES TO SLEEP. WILL TRY AGAIN IN A COUPLE OF HOURS. PT NOT EATING HIS BREAKFAST AND NOT WANTING TO WAKE UP TO TAKE HIS MEDICATIONS. WILL TRYING AGAIN LATER.
[2020-03-20] MEDS: lithium carbonate 150mg capsule PO SCH ×2 (11:17→20:48)
[2020-03-20] MEDS: famotidine 20mg tablet PO SCH ×2 (11:17→20:48)
[2020-03-20] MEDS: LORazepam 1 MG tablet PO SCH ×2 (11:18→20:47)
[2020-03-20] MEDS: QUEtiapine 25mg tablet PO SCH (11:18)
[2020-03-20] MEDS: quetiapine 100mg tablet PO SCH ×2 (11:18→20:48)
--- NOTE | 2020-03-20 11:23 | NUR ---
PT IS AWAKE NOW BUT PT REFUSES TO ALLOW BLLOD DRAW. PT IS COOPERATIVE WITH TAKING HIS MEDICATION. ASKING ABOUT A SHOWER. BUT WILL NEED MORE TECHS AND SECURITY GUARDS TO GO WITH HIM.
--- NOTE | 2020-03-20 11:57 | NUR ---
PT HAS ALLOWED THE STOCK HANGER TO DRAW HIS BLOOD. PT ASKING FOR JUICE AND CRACKERS.
[2020-03-20] MEDS: acetaminophen 325mg tablet PO PRN (12:58)
--- NOTE | 2020-03-20 13:49 | NUR ---
PT STANDING AT NURSES STATION. WAS HAPPY WITH HIS LUNCH. CHATTING WITH THE NURSES.
--- NOTE | 2020-03-20 14:45 | NUR ---
SET UP THE TV PER PT REQUEST. PT NOW IN BED WATCHING THE TV.
--- NOTE | 2020-03-20 16:39 | NUR ---
PT IS STILL WATCHING THE TV. GETTING UP AND DOWN NEEDED TO CHANGE THE CHANNELS.
--- NOTE | 2020-03-20 18:30 | NUR ---
RECEIVED REPORT FROM JANE CABALLERO. PT IN BED AND NOT IN ANY DISTRESS OR DISCOMFORT- WILL MONITOR.
--- NOTE | 2020-03-20 19:04 | NUR ---
PT JUST FINISHED DINNER AND REQUESTING MORE WATER. DEJAN [employer] WILL GIVE WATER AT 1930. WILL CONTINUE TO WATER.
--- NOTE | 2020-03-20 20:20 | NUR ---
PT RESTING IN BED. REQUESTED WATER 15 MIN AGO. NOTHING ELSE TO NOTE- WILL CONT TO MONITOR.
[2020-03-20] MEDS: olanzapine 10mg tablet PO SCH (20:47)
[2020-03-20] MEDS: polyethylene glycol 3350 17gm powd pack PO SCH (20:51)
--- NOTE | 2020-03-20 21:01 | NUR ---
PT REQUESTING BED BATH SUPPLIES. PT GIVEN THE WARM READY WIPES. PT TOOK MEDICATIONS WITH NO ISSUES. WILL CONT TO MONITOR.
--- NOTE | 2020-03-20 21:28 | NUR ---
PT RESTING IN BED AND NOT SHOWING ANY SIGNS OF DISCOMFORT OR DISTRESS. WILL CONT TO MONITOR.
--- NOTE | 2020-03-20 22:48 | NUR ---
PT AWAKE AND IN BED. ASKS FOR WATER CONTINOUSLY. RN WILL CONT TO MONITOR.
--- NOTE | 2020-03-21 00:21 | NUR ---
PT IN BED WITH NO SIGNS OF DISTRESS OR DISCOMFORT. WILL CONT TO MONITOR.
--- NOTE | 2020-03-21 02:32 | NUR ---
PT SLEEPING WITH BREATHING RATE NORMAL. PT DOES NOT LOOK TO BE IN ANY DISTRESS OR DISCOMFORT. WILL MONITOR.
--- NOTE | 2020-03-21 04:17 | NUR ---
PT APPEARS TO BE SLEEPING WITH NO SIGNS OF DISTRESS OR DISCOMFORT. WILL CONT TO MONITOR.
--- NOTE | 2020-03-21 06:30 | NUR ---
PT SLEEING IN BED NO DISTRESS NOTED, WILL CONTINUE TO MONITOR.
[2020-03-21] MEDS: famotidine 20mg tablet PO SCH ×2 (09:04→20:38)
[2020-03-21] MEDS: quetiapine 100mg tablet PO SCH ×2 (09:04→20:37)
[2020-03-21] MEDS: QUEtiapine 25mg tablet PO SCH (09:04)
[2020-03-21] MEDS: LORazepam 1 MG tablet PO SCH ×2 (09:04→20:38)
[2020-03-21] MEDS: lithium carbonate 150mg capsule PO SCH ×2 (09:05→20:37)
--- NOTE | 2020-03-21 09:13 | NUR ---
PT WALKED TO BATHROOM NO ASSISTANCE NEEDED.
--- NOTE | 2020-03-21 10:46 | NUR ---
PT ALERT IN BED, NO PROBLEMS, WILL CONTINUE TO [place].
--- NOTE | 2020-03-21 13:09 | NUR ---
EATING LUNCH NO DISTRESS NOTED.
--- NOTE | 2020-03-21 15:30 | NUR ---
PT WALKING AROUND NURSING STATION NO DISTRESS. NO NEEDS AT THIS TIME.
--- NOTE | 2020-03-21 17:53 | NUR ---
PT SITTING ON SIDE OF BED, NO NEEDS AT THIS TIME. WILL CONTINUE TO MONITOR. MESSAGE FROM [facility]OH[facility]IB STATED WILL HAVE MEETING ON TUESDAY WITH MANAGEMENT TO FIND A POC.
--- NOTE | 2020-03-21 18:50 | NUR ---
Patient ate dinner, paced some, drank water, then returned to bed.
--- NOTE | 2020-03-21 19:30 | NUR ---
Patient awake, he requests and gets his water. Patient occasionally speaks out loud with nobody present. In view from nursing station.
[2020-03-21] MEDS: polyethylene glycol 3350 17gm powd pack PO SCH (20:36)
[2020-03-21] MEDS: olanzapine 10mg tablet PO SCH (20:44)
--- NOTE | 2020-03-21 21:01 | NUR ---
Patient is sleeping quietly. No distress. In view from nursing station.
[2020-03-21] MEDS: acetaminophen 325mg tablet PO PRN (21:07)
--- NOTE | 2020-03-21 22:14 | NUR ---
Patient is up and pacing floor, he then returns to bed.
--- NOTE | 2020-03-22 01:49 | NUR ---
Patient is sleeping quietly in a prone position.
--- NOTE | 2020-03-22 03:27 | NUR ---
Patient is sleeping prone in bed. No distress.
--- NOTE | 2020-03-22 04:00 | NUR ---
Patient is sleeping quietly, in view from nursing station.
--- NOTE | 2020-03-22 06:35 | NUR ---
Patient is sleeping quietly, prone position. Report to oncoming RN.
--- NOTE | 2020-03-22 08:24 | NUR ---
Pt resting comfortably. Respirations equal and nonlabored.
[2020-03-22] MEDS: famotidine 20mg tablet PO SCH ×2 (08:33→20:41)
[2020-03-22] MEDS: lithium carbonate 150mg capsule PO SCH ×2 (08:34→20:46)
[2020-03-22] MEDS: QUEtiapine 25mg tablet PO SCH (08:34)
[2020-03-22] MEDS: LORazepam 1 MG tablet PO SCH ×2 (08:34→20:38)
[2020-03-22] MEDS: quetiapine 100mg tablet PO SCH ×2 (08:34→20:41)
--- NOTE | 2020-03-22 11:10 | NUR ---
Pt states his neck is hurting him from sleeping wrong; requesting Tylenol.
[2020-03-22] MEDS: acetaminophen 325mg tablet PO PRN (11:12)
--- NOTE | 2020-03-22 11:27 | NUR ---
Pt requesting snack. Min crackers and milk given.
--- NOTE | 2020-03-22 12:58 | NUR ---
Pt awake, and cooperative; sitting at his bedside. Pt asking if hospital is hiring, states "I want to start work".
--- NOTE | 2020-03-22 14:53 | NUR ---
PT WAS PACING BACK AND FORTH, STOPPED AT NURSES STATION SAYING HE WAS GETTIN "STIR CRAZY". GIVEN CRACKERS AND JUICE.
--- NOTE | 2020-03-22 15:30 | NUR ---
Given Jell-O and juice, and asked pt to return to his room. Pt ate snack and is now resting comfortably on his back.
--- NOTE | 2020-03-22 18:05 | NUR ---
Pt somewhat anxious, attempting to talk to pt in bed next to him. Also asking when he can get more food. Explained to him that dinner will be here soon and he needed to refrain from inapropriate conversation with his neighboring pt.
--- NOTE | 2020-03-22 19:30 | NUR ---
recieved report, assumed care. pt. resting quietly in bed, RR even and non-labored.
--- NOTE | 2020-03-22 20:30 | NUR ---
pt. refused Mirilax d/t "large runny stools", wanted Milk of Magnesia, given Malox but had to explain to pt. that it was the same after he first refused the med. Pt. now resting with blanket over head.
[2020-03-22] MEDS: olanzapine 10mg tablet PO SCH (20:42)
[2020-03-22] MEDS: polyethylene glycol 3350 17gm powd pack PO SCH (20:58)
--- NOTE | 2020-03-23 03:27 | NUR ---
pt resting quietly with eyes closed. rr even and non-labored.
--- NOTE | 2020-03-23 06:30 | NUR ---
pt is sleeping
--- NOTE | 2020-03-23 07:30 | NUR ---
pt is sleeping
[2020-03-23] MEDS: lithium carbonate 150mg capsule PO SCH ×2 (08:22→21:18)
[2020-03-23] MEDS: famotidine 20mg tablet PO SCH ×2 (08:22→19:54)
[2020-03-23] MEDS: quetiapine 100mg tablet PO SCH ×2 (08:23→21:07)
[2020-03-23] MEDS: QUEtiapine 25mg tablet PO SCH (08:23)
[2020-03-23] MEDS: LORazepam 1 MG tablet PO SCH ×2 (08:23→19:54)
--- NOTE | 2020-03-23 08:47 | NUR ---
pt is sleeping
--- NOTE | 2020-03-23 10:00 | NUR ---
pt is resting in her room no issues.
--- NOTE | 2020-03-23 11:00 | NUR ---
pt is resting in her room no issues.
--- NOTE | 2020-03-23 12:00 | NUR ---
pt is resting in her room no issues.
--- NOTE | 2020-03-23 13:00 | NUR ---
pt is walking around. no issues
--- NOTE | 2020-03-23 14:00 | NUR ---
pt is walking around the unit and talking with staff
--- NOTE | 2020-03-23 15:00 | NUR ---
pt is resting in her room no issues.
--- NOTE | 2020-03-23 16:00 | NUR ---
pt is resting in her room no issues.
--- NOTE | 2020-03-23 17:00 | NUR ---
pt is resting in her room no issues.
--- NOTE | 2020-03-23 18:17 | NUR ---
Recieved report, assumed care. Pt up to desk asking for water. Pacing. helped himself to tap water.
[2020-03-23] MEDS: mag hydrox/Alum hydrox/simeth 30ml oral suspension PO PRN (18:47)
--- NOTE | 2020-03-23 19:03 | NUR ---
additional food brought to the floor by dietary. Pt. at more soup, pudding and cake.
[2020-03-23] MEDS: polyethylene glycol 3350 17gm powd pack PO SCH (21:00)
[2020-03-23] MEDS: olanzapine 10mg tablet PO SCH (21:11)
[2020-03-23] MEDS: acetaminophen 325mg tablet PO PRN (22:38)
--- NOTE | 2020-03-23 23:04 | NUR ---
Pt. in bed, sleeping/resting. Appears comfortable.
--- NOTE | 2020-03-23 23:21 | NUR ---
pt laying with eyes closed, rr even and non labored.
--- NOTE | 2020-03-24 05:23 | NUR ---
patient sleeping undisturbed
--- NOTE | 2020-03-24 06:52 | NUR ---
PT SLEEPING, SNORING
[2020-03-24] MEDS: quetiapine 100mg tablet PO SCH ×2 (08:18→20:12)
[2020-03-24] MEDS: QUEtiapine 25mg tablet PO SCH (08:19)
[2020-03-24] MEDS: famotidine 20mg tablet PO SCH ×2 (08:25→20:21)
[2020-03-24] MEDS: LORazepam 1 MG tablet PO SCH ×2 (08:26→20:12)
[2020-03-24] MEDS: lithium carbonate 150mg capsule PO SCH ×2 (08:26→20:12)
--- NOTE | 2020-03-24 08:30 | NUR ---
ATE 100% OF BREAKFAST
--- NOTE | 2020-03-24 09:13 | NUR ---
PT UP AMBULATING AND TO BR WITHOUT ASST.
--- NOTE | 2020-03-24 13:04 | NUR ---
pt walking around in unit appropriate. ask for tooth brush and toothpaste.
--- NOTE | 2020-03-24 13:05 | NUR ---
pt ate 100% of lunch and a sandwich.
[2020-03-24] MEDS: olanzapine 10mg tablet PO SCH (20:11)
[2020-03-24] MEDS: polyethylene glycol 3350 17gm powd pack PO SCH (20:13)
--- NOTE | 2020-03-25 03:05 | NUR ---
Patient is sleeping on his left side. Bed in mid fowlers position. No distress.
--- NOTE | 2020-03-25 06:30 | NUR ---
pt is sleeping. no concerns at this time
--- NOTE | 2020-03-25 07:30 | NUR ---
pt is sleeping. no concerns at this time
[2020-03-25] MEDS: LORazepam 1 MG tablet PO SCH ×2 (08:32→20:48)
[2020-03-25] MEDS: quetiapine 100mg tablet PO SCH ×2 (08:32→20:46)
[2020-03-25] MEDS: QUEtiapine 25mg tablet PO SCH (08:32)
[2020-03-25] MEDS: lithium carbonate 150mg capsule PO SCH ×2 (08:32→20:48)
[2020-03-25] MEDS: famotidine 20mg tablet PO SCH ×2 (08:32→20:52)
--- NOTE | 2020-03-25 10:00 | NUR ---
ASLEEP IN BED. NO COMPLAINTS AT THIS TIME.
--- NOTE | 2020-03-25 14:10 | NUR ---
Patient brought to shower per arrangements with tech
--- NOTE | 2020-03-25 16:15 | NUR ---
Resting in bed quietly with headphones on
[2020-03-25] MEDS: polyethylene glycol 3350 17gm powd pack PO SCH (20:45)
[2020-03-25] MEDS: olanzapine 10mg tablet PO SCH (20:48)
--- NOTE | 2020-03-25 21:12 | NUR ---
PT UP TO BATHROOM STEADY GAIT NO C/O DISCOMFORT OR ANY NEEDS AT THIS TIME WILL CONTINUE TO MONITOR AND REASSESS NEEDED PT IN THE FIRECT LINE OF SIGHT OF NURSING STAFF
[2020-03-25] MEDS: acetaminophen 325mg tablet PO PRN (21:30)
--- NOTE | 2020-03-26 02:10 | NUR ---
Patient is sleeping in a prone position, no distress. In view from nursing station.
--- NOTE | 2020-03-26 04:34 | NUR ---
Patient is sleeping quietly in a prone position. In view from nursing station .
--- NOTE | 2020-03-26 06:45 | NUR ---
recieved report, assumed care. Pt. laying with eyes closed. RR even and non-labored.
[2020-03-26] MEDS: QUEtiapine 25mg tablet PO SCH (08:35)
[2020-03-26] MEDS: famotidine 20mg tablet PO SCH ×2 (08:35→21:43)
[2020-03-26] MEDS: quetiapine 100mg tablet PO SCH ×2 (08:36→20:47)
[2020-03-26] MEDS: lithium carbonate 150mg capsule PO SCH ×2 (08:38→20:48)
[2020-03-26] MEDS: LORazepam 1 MG tablet PO SCH ×2 (08:39→20:47)
--- NOTE | 2020-03-26 09:17 | NUR ---
battery is in headphones, tech going up to MH to exchange. Pt. laying quietly with eyes closes. rr even and non-labored.
--- NOTE | 2020-03-26 10:55 | NUR ---
pt. laying prone with sheet over head. RR even and non-labored.
--- NOTE | 2020-03-26 13:19 | NUR ---
provided pt water and headphones to listen to the radio.
--- NOTE | 2020-03-26 16:06 | NUR ---
PROVIDED PT CRACKERS, RESTING IN BED LISTING TO HEADPHONES RADIO
--- NOTE | 2020-03-26 16:23 | NUR ---
PT IS PACING BACK AND FORTH, PROVIDED PT COFFEE.
--- NOTE | 2020-03-26 16:59 | NUR ---
PT ON THE PHONE WITH HIS CONSERVATOR
--- NOTE | 2020-03-26 19:00 | NUR ---
PT SITTNING IN BED UP RIGHT EATING DINNER . PLAN OF CARE UPDATED . PT HAS NO NEEDS OR REQUESTS AT THIS TIME ASIDE FROM TYLENOL FOR UPPER LEFT BACK TOOTH PAIN AND SOME ANBUSOEL FOR DISCOMFORT . WILL ADDRESS THE TOOTH PAIN WITH DR LOCKHART
[2020-03-26] MEDS: acetaminophen 325mg tablet PO PRN (19:13)
[2020-03-26] MEDS ORDERED: benzocaine (Anbesol) 12ml bottle MM PRN (20:30)
--- NOTE | 2020-03-26 20:45 | NUR ---
PT APPLIED SOME ANBASOEL TO THE UPPER LEFT BCAK GUM LINE
[2020-03-26] MEDS: olanzapine 10mg tablet PO SCH (20:49)
[2020-03-26] MEDS: polyethylene glycol 3350 17gm powd pack PO SCH (21:00)
--- NOTE | 2020-03-26 22:09 | NUR ---
pt pacing hallway with head phomes on . asked pt what he is listening to . pt stated hip hop and commericals
--- NOTE | 2020-03-26 22:36 | NUR ---
PT ASKING FOR MORE WATER . PT HAS HAD PITCHER FILLED 4 TIMES IN THE LAST 3 1/2 HOURS PT HAS HAD M[facility]IPLE VISITS TO [facility] EDUCATED PT TAHT TOO MUCH WATER CAN IMBALNCE HIS ELCTROLYTES AND THIS WILL BE THE LAST ICE AND WATER REFILL FOR THE NEXT FEW HOURS , PT SAID " OK " AND WENT BACK TO BED TO TRY AND SLEEP
--- NOTE | 2020-03-26 22:47 | NUR ---
PT UP OUT OF BED TO GET A MAGAZINE
--- NOTE | 2020-03-26 23:30 | NUR ---
PT RESTING IN BED WILL CONTINUE TO MONITOR AND REASSESS NEEDED
--- NOTE | 2020-03-27 00:10 | NUR ---
PT ASLEEP IN BED HOB ELEVATED 30 DEGREES RESP EVEN AND UNLABORED WILL CONTINUE TO MPNITOR AND REASSESS
--- NOTE | 2020-03-27 01:24 | NUR ---
PT SLEEPING ON HIS LEFT SIDE RESO EVEN AND UNLABORED WILL CONTINUE TO MONITOR AND REASSESS NEEDED
--- NOTE | 2020-03-27 02:02 | NUR ---
PT SLEEPING ON HIS LEFT SIDE RESP EVEN AND UNLABORED
--- NOTE | 2020-03-27 03:48 | NUR ---
PT SLEEPING ON HIS RIGHT SIDE RESP EVEN AND UNLABORED WILL CONTINUE MONITOR AND REASSESS
--- NOTE | 2020-03-27 04:40 | NUR ---
PT SLEEPING SUPINE RESP EVEN AND UNLABORED WILL CONTINUE TO MONITOR AND REASSESS NEEDED
--- NOTE | 2020-03-27 05:48 | NUR ---
PT SLEEPING ON HIS RIGHT SIDE RESP EVEN AND UNLABORED WILL CONTINUE TO MONIOTR NEEDED
--- NOTE | 2020-03-27 08:23 | NUR ---
PATIENT GIVEN BREAKFAST TRAY, PATIENT IS STILL SLEEPING IN BED 25
[2020-03-27] MEDS: QUEtiapine 25mg tablet PO SCH (08:32)
[2020-03-27] MEDS: quetiapine 100mg tablet PO SCH ×2 (08:32→20:24)
[2020-03-27] MEDS: LORazepam 1 MG tablet PO SCH ×2 (08:33→20:25)
[2020-03-27] MEDS: lithium carbonate 150mg capsule PO SCH ×2 (08:33→20:25)
--- NOTE | 2020-03-27 08:40 | NUR ---
Pt denies S/H/I or audio/visual hallucinations @ this time. Pt reports having slept "well and feel good today." When asked when he was last outdoors, pt reports he "couldn't remember." Efforts to get pt to 3rd floor outdoor area for sunlight will be sought to aid in maintenance of circadian rhythm, which has been discussed and approved of yanelis Tellez, provided escort resources available.
[2020-03-27] MEDS: famotidine 20mg tablet PO SCH ×2 (08:45→20:25)
--- NOTE | 2020-03-27 10:45 | NUR ---
Spoke with [facility] Banks regarding potential for this pt to attend group 1-2/wk as he is on his 10th consecutive 5150 hold. 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 She will address yanelis Britton, [facility] Director, but communicated the likelihood is slim as "people that are not admitted are not allowed to even be on the unit." Will continue to explore potential opportunities for mental health therapy for this pt beyond limited resources of ED.
--- NOTE | 2020-03-27 11:05 | NUR ---
Spoke with Felicitas Marquez Pt Advocate, seeking guidance r/t pt[ Addendum: 03/27/20 at 1122 by SRINIVAS r/t pt's mental health care needs given he voiced frustration at being held "captive with no help." Alma explained the ER is outside of the domain of the Pt Advocate jurisdiction. She was familiar with the situation knowing which pt I was calling about without me giving any details. Per Alma, "higher ups are reviewing the situation, that much I can tell you." Reiterated the inappropriateness and lack of mental health resources available in the ER, along with current surrounding safety issues associated with mixed MH population including female juvenile.
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
--- NOTE | 2020-03-27 12:12 | NUR ---
Pt escorted to 3rd floor outdoor area with security personnel (x2) and PCT Theresa for next 20 minutes
--- NOTE | 2020-03-27 12:41 | NUR ---
patient is back in the unit
--- NOTE | 2020-03-27 15:31 | NUR ---
Pt concerned that he is getting a dental infection. Previously cracked tooth while in [facility]. Pt states that the tooth has been painful intermittently since that time. Benzocaine applied last night with relief.
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
--- NOTE | 2020-03-27 19:00 | NUR ---
Patient is sitting in bed. Patient just finished dinner. Some mild anxiety is present. Patient is cooperative.
--- NOTE | 2020-03-27 20:12 | NUR ---
Patient finished his extra helping of dinner. No distress. Patient is cooperative. Patient on occasion laughs to himself, he does not discuss internal stimuli.
[2020-03-27] MEDS: polyethylene glycol 3350 17gm powd pack PO SCH (20:24)
[2020-03-27] MEDS: olanzapine 10mg tablet PO SCH (20:25)
--- NOTE | 2020-03-27 21:30 | NUR ---
Patient is compliant with all nightime medications. He is in direct view from the nursing station.
--- NOTE | 2020-03-27 22:31 | NUR ---
Patient is sleeping in prone position. He self repositions.
--- NOTE | 2020-03-27 23:30 | NUR ---
Patient sleeping on his right side, bed is in low fowlers position. Frequent rounding for patient and staff safety.
--- NOTE | 2020-03-28 01:16 | NUR ---
Patient is prone in a low fowlers position.
--- NOTE | 2020-03-28 03:59 | NUR ---
Patient is sleeping prone position. In view from nursing station.
--- NOTE | 2020-03-28 04:50 | NUR ---
Patient sleeping quietly. He self repositions. In view from nursing station.
--- NOTE | 2020-03-28 06:17 | NUR ---
Patient sleeping in prone position, he self repositions.
[2020-03-28] MEDS: LORazepam 1 MG tablet PO SCH ×2 (08:00→15:31)
[2020-03-28] MEDS: quetiapine 100mg tablet PO SCH ×2 (08:00→20:19)
[2020-03-28] MEDS: lithium carbonate 150mg capsule PO SCH ×2 (08:00→20:22)
[2020-03-28] MEDS: famotidine 20mg tablet PO SCH ×2 (08:00→20:18)
[2020-03-28] MEDS: QUEtiapine 25mg tablet PO SCH (08:00)
--- NOTE | 2020-03-28 11:30 | NUR ---
PT UP AND DOWN PACING AROUND UNIT AND USING THE PHONE TO CALL HIS GRANDPA. CALM AT THIS TIME.
--- NOTE | 2020-03-28 13:08 | NUR ---
Breaking primary RN. Pt sitting in bed, listening to his headphones.
--- NOTE | 2020-03-28 15:26 | NUR ---
PT REQUESTED AND GIVEN SNACKS, UP AMBULATING AROUND UNIT AND ASKING FOR AN UPDATE AND WANTING TO MAKE SURE HE WILL BE ABLE TO GET TO HIS COURT DATE IN JUNE.
[2020-03-28] MEDS: mag hydrox/Alum hydrox/simeth 30ml oral suspension PO PRN (16:06)
--- NOTE | 2020-03-28 16:56 | NUR ---
PT UP COLORING CALMLY
--- NOTE | 2020-03-28 18:27 | NUR ---
Spoke with Chriss our CNO regarding possible placement for patient and the unsafe nature of patient being in the ED for this extended period of time. Current plan is for patient to be admitted to [facility] next week per Re[facility] director.
--- NOTE | 2020-03-28 18:30 | NUR ---
Patient is sitting up in bed. He is well oriented. Some signs of internal stimuli noted. Patient giggles intermittently. In view from nursing station.
--- NOTE | 2020-03-28 19:25 | NUR ---
Patient has consume a full meal. He is up to bathroom to void then back to bed.
[2020-03-28] MEDS: polyethylene glycol 3350 17gm powd pack PO SCH (20:19)
[2020-03-28] MEDS: olanzapine 10mg tablet PO SCH (20:21)
--- NOTE | 2020-03-28 21:30 | NUR ---
Patient is sleeping prone position in bed. No distress.
--- NOTE | 2020-03-28 23:19 | NUR ---
Patient sleeping on his left side, bed is in mid fowlers position.
[2020-03-29] MEDS: LORazepam 1 MG tablet PO SCH ×4 (00:30→23:56)
--- NOTE | 2020-03-29 01:12 | NUR ---
Patient sleeping low fowlers in bed, supine position.
--- NOTE | 2020-03-29 03:12 | NUR ---
Patient is sleeping on his right side. No distress.
--- NOTE | 2020-03-29 05:22 | NUR ---
Patient is sleeping on his left side. No distress. Resting quietly.
[2020-03-29] MEDS: famotidine 20mg tablet PO SCH ×2 (09:03→19:52)
[2020-03-29] MEDS: lithium carbonate 150mg capsule PO SCH ×2 (09:04→19:50)
[2020-03-29] MEDS: quetiapine 100mg tablet PO SCH ×2 (09:04→19:52)
[2020-03-29] MEDS: QUEtiapine 25mg tablet PO SCH (09:05)
--- NOTE | 2020-03-29 16:24 | NUR ---
PT ESCORTED TO [facility] BY 2 SECURITIES AND MARTINA LEHMAN FOR SHOWER AND SPEND SOME TIME ON PATIO.
--- NOTE | 2020-03-29 17:00 | NUR ---
PT BACK FROM [facility] HAD A SHOWER AND ABLE TO SPEND SOMETIME ON THE PATIO. PT STATES, "REALLY NICE TO SEE EVERYTHING"
--- NOTE | 2020-03-29 18:30 | NUR ---
Recieved report from Dina CABALLERO. PT is cooperative and quiet in bed.
--- NOTE | 2020-03-29 19:40 | NUR ---
Pt used the restroom
[2020-03-29] MEDS: mag hydrox/Alum hydrox/simeth 30ml oral suspension PO PRN (19:52)
[2020-03-29] MEDS: olanzapine 10mg tablet PO SCH (19:52)
[2020-03-29] MEDS: polyethylene glycol 3350 17gm powd pack PO SCH (19:53)
--- NOTE | 2020-03-29 20:22 | NUR ---
Pt takes HS medications without issue. He request PRN maalox which is given to him. PT appears to be responding to internal stimuli, talking out lous and having conversation by himself.
--- NOTE | 2020-03-29 21:58 | NUR ---
Pt resting quietyl in bed, RR 16
--- NOTE | 2020-03-29 23:00 | NUR ---
Pt given a sandwhich and juice, used the restroom x1
--- NOTE | 2020-03-30 07:50 | NUR ---
PT UP TO BR.
[2020-03-30] MEDS: famotidine 20mg tablet PO SCH ×2 (08:12→21:05)
[2020-03-30] MEDS: lithium carbonate 150mg capsule PO SCH ×2 (08:13→21:06)
[2020-03-30] MEDS: QUEtiapine 25mg tablet PO SCH (08:13)
[2020-03-30] MEDS: quetiapine 100mg tablet PO SCH ×2 (08:13→21:06)
[2020-03-30] MEDS: LORazepam 1 MG tablet PO SCH ×2 (08:14→17:49)
--- NOTE | 2020-03-30 12:50 | NUR ---
MADE A CONTRACT WITH PT THAT HE IS ALLOWED 5 PITCHERS OF WATER A DAY. TODAY PT HAS HAD 2 PITCHERS.
--- NOTE | 2020-03-30 13:36 | NUR ---
breaking primary RN, pt is awake, supine in bed, calm, no needs at this time
--- NOTE | 2020-03-30 13:51 | NUR ---
patiet filled water pitcher, #3
--- NOTE | 2020-03-30 14:18 | NUR ---
PT FEELING WATER PITCHER 4TH ONE TODAY. WHEN FILLING PITCHER PT TOTALLY IGNORED ME. HAS ONE PITCHER LEFT FOR THE DAY. WATER PITCHER TAKEN AWAY, AND WHEN HE WANTS HIS FIFTH PITCHER, HE CAN ASK STAFF.
--- NOTE | 2020-03-30 15:30 | NUR ---
PT UP TO BR VOIDED X1
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
--- NOTE | 2020-03-30 20:16 | NUR ---
Patient sitting on his bed, occasionally laughs to himself.
[2020-03-30] MEDS: polyethylene glycol 3350 17gm powd pack PO SCH (21:06)
[2020-03-30] MEDS: olanzapine 10mg tablet PO SCH (21:06)
--- NOTE | 2020-03-30 22:29 | NUR ---
The patient isn sitting on his bed listening to headphones.
--- NOTE | 2020-03-30 23:52 | NUR ---
The patient is sleeping on his left side. RR even and unlabored. No s/s of distress.
--- NOTE | 2020-03-31 04:07 | NUR ---
patient sleeping undisturbed.
--- NOTE | 2020-03-31 06:52 | NUR ---
Patient sleeping on left side. No distress observed. Continue to monitor.
--- NOTE | 2020-03-31 08:10 | NUR ---
Patient eating breakfast. No distress observed. Continue to monitor.
[2020-03-31] MEDS: LORazepam 1 MG tablet PO SCH ×3 (08:43→16:44)
[2020-03-31] MEDS: famotidine 20mg tablet PO SCH ×2 (08:43→21:25)
[2020-03-31] MEDS: QUEtiapine 25mg tablet PO SCH (08:43)
[2020-03-31] MEDS: quetiapine 100mg tablet PO SCH ×2 (08:44→21:26)
[2020-03-31] MEDS: lithium carbonate 150mg capsule PO SCH ×2 (08:44→21:28)
--- NOTE | 2020-03-31 11:14 | NUR ---
Patient watching TV. No distress observed. Continue to monitor.
--- NOTE | 2020-03-31 13:31 | NUR ---
Patient reclining in bed watching T.V. No distress observed. Continue to monitor.
--- NOTE | 2020-03-31 15:10 | NUR ---
Patient reclining and watching T.V. No distress observed. Continue to monitor.
--- NOTE | 2020-03-31 17:00 | NUR ---
Patient drinking water and sitting in bed. No distress observed. Patient watching T.V. Continue to monitor.
[2020-03-31] MEDS: polyethylene glycol 3350 17gm powd pack PO SCH (21:26)
[2020-03-31] MEDS: olanzapine 10mg tablet PO SCH (21:29)
--- NOTE | 2020-03-31 22:02 | NUR ---
Pt's water consumption has been limited. He aproached nurses station, became angry when he was not given a second pitcher of water. Some yelling out but calmed down and went back to bed. Pt lying in bed quietly at this time. He ambulates to independantly.
--- NOTE | 2020-04-01 04:00 | NUR ---
PT SLEEPING PEACFULLY ON HIS LEFT SIDE RESP EVEN AND UNALBORED WILL CONTINUE TO MONITOR AND REASSESS NEEDED PT IN THE DIRECT LINE OF SIGHT OF NURSING STAFF .
--- NOTE | 2020-04-01 05:24 | NUR ---
Pt sleeping. Resp even and unlabored.
--- NOTE | 2020-04-01 07:00 | NUR ---
pt is sleeping
--- NOTE | 2020-04-01 08:00 | NUR ---
pt is eating breakfast
[2020-04-01] MEDS: QUEtiapine 25mg tablet PO SCH (08:24)
[2020-04-01] MEDS: quetiapine 100mg tablet PO SCH ×2 (08:24→21:06)
[2020-04-01] MEDS: famotidine 20mg tablet PO SCH ×2 (08:24→21:11)
[2020-04-01] MEDS: lithium carbonate 150mg capsule PO SCH ×2 (08:24→21:07)
[2020-04-01] MEDS: LORazepam 1 MG tablet PO SCH ×3 (08:25→16:00)
--- NOTE | 2020-04-01 09:02 | NUR ---
pt is sleeping
--- NOTE | 2020-04-01 10:00 | NUR ---
pt is sleeping
--- NOTE | 2020-04-01 11:00 | NUR ---
pt is sleeping
--- NOTE | 2020-04-01 12:00 | NUR ---
pt is watching a movie
--- NOTE | 2020-04-01 13:00 | NUR ---
pt is watching a movie
--- NOTE | 2020-04-01 14:00 | NUR ---
pt is walking around
--- NOTE | 2020-04-01 15:00 | NUR ---
pt is listening to his headphones
--- NOTE | 2020-04-01 16:00 | NUR ---
pt is using the phone
--- NOTE | 2020-04-01 17:17 | NUR ---
pt is walking around
--- NOTE | 2020-04-01 20:00 | NUR ---
PT DRIFFING OFF TO SLEEP IN BED HOB OF 30 DEGREES RESP EVEN AND UNLABORED IN THE DIRECT LINE OF SIGHT OF NURSING STAFF .
[2020-04-01] MEDS: polyethylene glycol 3350 17gm powd pack PO SCH (21:05)
[2020-04-01] MEDS: olanzapine 10mg tablet PO SCH (21:07)
[2020-04-01] MEDS: acetaminophen 325mg tablet PO PRN (21:12)
--- NOTE | 2020-04-01 23:48 | NUR ---
PT UP AT NURSES STATION ASKING WHAT TIME IT IS. PT ALSO EXPRESSING JONATHAN NEEED TO GET OUT OF HERE . STATES HE WOULD LIKE TO PUT HIS CLOSE ON AND FIND SOMEWHERE TO LIVE . PT VERBALIZES FRUSTRATION WITH HIS CONSERVATOR AND HER LACK OF COMMUNICATION , THAT HE HASNT PERSONALLY MET HER UPON MULTIPLE REQUESTS , AND WOULD LIKE TO GO OUTSIDE .
--- NOTE | 2020-04-02 | NUR ---
RELIEVING RN FOR BREAK, PT IS SLEEPING
--- NOTE | 2020-04-02 01:00 | NUR ---
PT SLEEPING PEACFULLY SUPINE RESP EVEN AND UNALBORED WILL CONTINUE TO MONITOR AND REASSESS NEEDED PT IN THE DIRECT LINE OF SIGHT OF NURSING STAFF .
--- NOTE | 2020-04-02 04:00 | NUR ---
PT SLEEPING PEACFULLY ON HIS RIGHT SIDE RESP EVEN AND UNALBORED WILL CONTINUE TO MONITOR AND REASSESS NEEDED PT IN THE DIRECT LINE OF SIGHT OF NURSING STAFF .
--- NOTE | 2020-04-02 08:30 | NUR ---
PT AWAKE AT 35% OF BREAKFAST. PT DOES NOT LIKE EGGS, WILL LET NUTRITIONAL SERVICES KNOW. UP TO BR VOIDED WITHOUT ASST.
[2020-04-02] MEDS: famotidine 20mg tablet PO SCH ×2 (08:48→20:20)
[2020-04-02] MEDS: QUEtiapine 25mg tablet PO SCH (08:48)
[2020-04-02] MEDS: quetiapine 100mg tablet PO SCH ×2 (08:49→20:21)
[2020-04-02] MEDS: LORazepam 1 MG tablet PO SCH ×3 (08:49→16:42)
[2020-04-02] MEDS: lithium carbonate 150mg capsule PO SCH ×2 (08:50→20:21)
--- NOTE | 2020-04-02 10:55 | NUR ---
AFTER BREAKFAST PT WENT BACK TO SLEEP AND HAS BEEN SLEEPING SINCE.
--- NOTE | 2020-04-02 13:40 | NUR ---
PT TO SHOWER ACCOMPANIED BY RN AND PROJECT SCHEDULER X 2. PT WAS APPROPRIATE.
--- NOTE | 2020-04-02 14:22 | NUR ---
Note francesharan in EDM - 04/02/20 at 1808 by DIDIER SPOKE WITH JESUS ALBERTO PALOMINO NURSE AT [facility] AND SAID I HEARD YOU WERE TAKING 2 PATIENTS FROM [facility]FLOW AND 2 PTS FROM [facility]. JESUS ALBERTO STATES, "I DONT KNOW WHO TOLD YOUR THAT BUT WE ARE TAKING ELEAN SCAR ASKED HIM WHY HE WAS NOT TAKING TERESA, HE STATES, " I CANT GET INTO THAT WITH YOUR RIGHT NOW" AND HUNG UP.
--- NOTE | 2020-04-02 15:52 | NUR ---
PT WATCHING A MOVIE
--- NOTE | 2020-04-02 18:30 | NUR ---
PT PACING UNIT AND CONVERSING APPROPRIATELY WITH STAFF. REQUESTING SNACKS AND SANDWICH. PROVIDED BOTH TO PT NO EXTRA MEAL TRAYS AVAILABLE.
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
[2020-04-02] MEDS: olanzapine 10mg tablet PO SCH (20:21)
[2020-04-02] MEDS: polyethylene glycol 3350 17gm powd pack PO SCH (20:22)
--- NOTE | 2020-04-02 20:40 | NUR ---
DURING ASSESSMENT, PT DENIES SI/SH/HI/AVH, AND WAS APPROPRIATE WITH CONVERSATION. STATES BEING DISAPPOINTED ABOUT NOT BEING ABLE TO GO OUTSIDE, BUT UNDERSTANDS THE CONSTRAINTS. IS AGREEABLE WITH PLAN TO GO UPSTAIRS WHEN IS APPROPRIATE AND SAFE FOR HIM AND OTHER PTS. STATES HE IS "IN A GOOD MOOD" AND CAN BE SAFE ON THE UNIT.
[2020-04-03 06:08] VITALS: BP 97/53
[2020-04-03 07:31] LABS: BASOPHILS % (AUTO) 0.4 % (0-1); EOSINOPHILS # (AUTO) 0.2 X10'3 (0-0.9); EOSINOPHILS % (AUTO) 1.8 % (0-6); HEMATOCRIT 44.9 % (42.0-52.0); HEMOGLOBIN 14.9 g/dl (14.0-17.9); LYMPHOCYTES # (AUTO) 2.6 X10'3 (1.1-4.8); LYMPHOCYTES % (AUTO) 24.6 % (21-51); MEAN CORPUSCULAR HEMOGLOBIN 30.3 PG (27.0-31.0); MEAN CORPUSCULAR HGB CONC 33.3 g/dL (33.0-36.5); MEAN PLATELET VOLUME 8.2 FL (7.4-10.4); MONOCYTES # (AUTO) 0.9 X10'3 (0-0.9); MONOCYTES % (AUTO) 8.3 % (2-12); NEUTROPHILS # (AUTO) 6.9 X10'3 (1.8-7.7); NEUTROPHILS % (AUTO) 64.9 % (42-75); PLATELET COUNT 297 X10'3 (140-440); RED BLOOD COUNT 4.93 X10'6 (4.70-6.10); RED CELL DISTRIBUTION WIDTH 14.3 % (11.5-14.5); WHITE BLOOD COUNT 10.6 X10'3 (4.5-11.0)
--- NOTE | 2020-04-03 07:35 | NUR ---
PT RESTING ON LEFT SIDE RR EQUAL AND UNLABORED
[2020-04-03 07:43] LABS: ALBUMIN 3.6 G/DL (3.4-5.0); BILIRUBIN,TOTAL 0.6 MG/DL (0.1-1.0); CALCIUM 8.5 MG/DL (8.5-10.1); CREATININE 1.01 MG/DL (0.60-1.10); GLUCOSE 88 MG/DL (70-104); TOTAL CARBON DIOXIDE 30.8 MMOL/L (24-32); TOTAL PROTEIN 6.9 G/DL (6.4-8.2); eGFR 89 ML/MIN
[2020-04-03 07:44] LABS: ALANINE AMINOTRANSFERASE 19 U/L (12-78); ALBUMIN/GLOBULIN RATIO 1.1 (1.1-1.5); ALKALINE PHOSPHATASE 61 IU/L (46-116); ASPARTATE AMINO TRANSFERASE 9 U/L (10-37)
[2020-04-03 08:01] LABS: BLOOD UREA NITROGEN 15 MG/DL (7-18)
[2020-04-03 08:09] LABS: ANION GAP 3 (8-16); CHLORIDE 105 MMOL/L (99-107); POTASSIUM 3.7 MMOL/L (3.5-5.1); SODIUM 139 MMOL/L (135-145)
[2020-04-03 08:21] LABS: BUN/CREATININE RATIO 14.9 (5.4-32.0)
[2020-04-03] MEDS: LORazepam 1 MG tablet PO SCH ×2 (08:44)
[2020-04-03] MEDS: famotidine 20mg tablet PO SCH (08:44)
[2020-04-03] MEDS: quetiapine 100mg tablet PO SCH (08:45)
[2020-04-03] MEDS: QUEtiapine 25mg tablet PO SCH (08:45)
[2020-04-03] MEDS: lithium carbonate 150mg capsule PO SCH (08:45)
--- NOTE | 2020-04-03 09:06 | NUR ---
PT AWAKE FOR BREAKFAST AND AM MEDS. RETURNED TO RESTING WITH EYES CLOSED RR EQUAL AND UNLABORED
[2020-04-03] MEDS ORDERED: POLY17PO10 PO (10:47)
== END 2020-04-03 10:15 ==
LOC: ER 10:09
DX: F20.9 Schizophrenia, unspecified (principal); G89.29 Other chronic pain; F31.9 Bipolar disorder, unspecified; F17.200 Nicotine dependence, unspecified, uncomplicated; R10.9 Unspecified abdominal pain; F12.90 Cannabis use, unspecified, uncomplicated; Z72.89 Other problems related to lifestyle; Z60.2 Problems related to living alone; Z56.0 Unemployment, unspecified; Z59.0 Homelessness; Z79.899 Other long term (current) drug therapy
CPT/HCPCS: 36415; 80048; 80053; 80178; 80305; 80320; 81001; 82948; 83735; 84443; 85025; 99285

== ENCOUNTER 2020-04-02 15:42 | Inpatient (IN) | payer MEDICAID ==
[~2020-04-02] VITALS: Ht 193 cm; Wt 112.0 kg
[~2020-04-02 15:42] MED LIST changes: -ATI1T PO; -LITH300C PO; +LORA-269 PO; -NICO-687 TD; +QUET-1 PO; -QUET100T33 PO; -QUET25TA34 PO
[2020-04-03] MEDS ORDERED: NICOTINE POLACRILEX 2 MG LOZENGE BC PRN (10:35)
[2020-04-03] MEDS ORDERED: loperamide 2mg capsule PO PRN (10:35)
[2020-04-03] MEDS ORDERED: traZODone 50mg tablet PO PRN (10:35)
[2020-04-03] MEDS ORDERED: magnesium hydroxide 30ml (MOM) UD suspension PO PRN (10:35)
[2020-04-03] MEDS ORDERED: acetaminophen 325mg tablet PO PRN (10:35)
[2020-04-03 10:38] VITALS: BP 112/64
[2020-04-03] MEDS ORDERED: POLY17PO10 PO (10:47)
--- NOTE | 2020-04-03 12:16 | NUR ---
Admission note: [facility]. Pt is on conservatorship. Pt has been off of his medications prior to arriving in the emergency room. Pt has history of schizophrenia, bipolar,chronic pain. Pt may be on a list to get into [facility] with 300 others on the list.
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
--- NOTE | 2020-04-03 14:29 | NUR ---
[facility] Public Guardian, Cindy, reported Brian had previously AWOL'd from a placement with another conserved patient who is currently on the unit. Apprised charge entry clerkTC Marquez
[2020-04-03] MEDS: LORazepam 1 MG tablet PO SCH ×2 (16:15→23:25)
[2020-04-03] MEDS: mag hydrox/Alum hydrox/simeth 30ml oral suspension PO PRN ×2 (16:45→22:10)
[2020-04-03 19:52] VITALS: BP 144/91
[2020-04-03] MEDS: lithium carbonate 150mg capsule PO SCH (20:07)
[2020-04-03] MEDS: polyethylene glycol 3350 17gm powd pack PO SCH (20:07)
[2020-04-03] MEDS: famotidine 20mg tablet PO SCH (20:07)
[2020-04-03] MEDS: olanzapine 10mg tablet PO SCH (20:07)
[2020-04-03] MEDS: quetiapine 100mg tablet PO SCH (20:08)
[2020-04-03] MEDS ORDERED: ibuprofen 200mg tablet PO PRN (21:00)
[2020-04-03] MEDS: benzocaine (Anbesol) 12ml bottle MM PRN (21:09)
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
[2020-04-04 08:00] VITALS: BP 107/79
[2020-04-04] MEDS: LORazepam 1 MG tablet PO SCH ×2 (08:32→15:38)
[2020-04-04] MEDS: lithium carbonate 150mg capsule PO SCH ×2 (08:32→20:03)
[2020-04-04] MEDS: famotidine 20mg tablet PO SCH ×2 (08:33→20:03)
[2020-04-04] MEDS: QUEtiapine 25mg tablet PO SCH (08:33)
--- NOTE | 2020-04-04 10:00 | NUR ---
Group Therapy: Process Group This Clinicians goal for this process group were as follows: (1) Introduce and provide psychoeducation on Moncada ABC method. (2) Practice working through Moncada ABC method using examples provided by this Clinician. (3) Encourage Patients to process some of their own reoccurring situations utilizing Moncada ABC methodology. (4) Process Clients thoughts and reflections on this topic within the group milieu. Patient presented as properly oriented to person, place, and situation during the process group. Patient was dressed in a white t-shirt and [facility] scrub bottoms that were appropriate within the milieu. Psychomotor activity was unremarkable. Patient's thought content was clear, and concrete, though he did not participate in the process group outside of saying, "I'm fine," when this Clinician checked in with him--inquiring what his level of anxiety, depression, and anger/irritability symptoms were from 1-10 (10 being high). Patient's thought process was clear, coherent, and linear. This Clinician did not observe Patient responding to any internal stimuli during session. The rate, latency, and tone of Patients speech was within normal limits. Patient maintained intermittent eye contact with this Clinician. Patient presented in calm euthymic mood, with blunted affect during the process group. Patient presented as verbally subdued and nonobtrusive within the group milieu. Patient did not participate in the group discussion on Moncada' ABC CBT methodology. Patient left the process group during this Clinician's initial check-in with the patients approximately 5 minutes into the process group. He did not return. Randy Hernandez MA, TC Addendum: 04/07/20 at 0830 by Randy Hernandez SS Amended: Links added.
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
[2020-04-04] MEDS: mag hydrox/Alum hydrox/simeth 30ml oral suspension PO PRN (16:31)
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
--- NOTE | 2020-04-04 17:36 | NUR ---
Assessment Presenting Issues: Pt's admitted to [facility] after spending 1.5 mos in the ER on 5150 for GD. Interventions: SS met w/pt and engaged him in completing his psychosocial assessment. Pt denies all sxs however, appears to be preoccupied with internal stimuli; pt would dissociate from conversation w/SS and needed verbal prompting to return to the assessment. Became very guarded when asked about his history of MH treatment. Became irritable when informed that he will be on a LOS for the duration of his stay @ [facility], and of the very real consequence of law enforcement being called if pt become sexually inappropriate w/another pt or staff here. Pt refused to sign TP #9 & RAE. Plan: SS will fax TP#9 to [facility] conservator for signature. Will engage conservator & [facility] in dcp activities. Nandini Sauceda LCSW Addendum: 04/04/20 at 1742 by Nandini ARELLANO Amended: Links added.
[2020-04-04 20:00] VITALS: BP 152/94
[2020-04-04] MEDS: olanzapine 10mg tablet PO SCH (20:04)
[2020-04-04] MEDS: quetiapine 100mg tablet PO SCH (20:04)
[2020-04-04] MEDS: polyethylene glycol 3350 17gm powd pack PO SCH (20:05)
[2020-04-04] MEDS: benzocaine (Anbesol) 12ml bottle MM PRN (21:31)
[2020-04-04] MEDS: acetaminophen 325mg tablet PO PRN (21:32)
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
[2020-04-05] MEDS: lithium carbonate 150mg capsule PO SCH ×2 (07:28→20:08)
[2020-04-05] MEDS: famotidine 20mg tablet PO SCH ×2 (07:28→20:16)
[2020-04-05] MEDS: LORazepam 1 MG tablet PO SCH ×3 (07:28→16:22)
[2020-04-05] MEDS: QUEtiapine 25mg tablet PO SCH (07:29)
[2020-04-05 08:00] VITALS: BP 125/74
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
[2020-04-05] MEDS: acetaminophen 325mg tablet PO PRN (17:56)
[2020-04-05 20:00] VITALS: BP 134/74
[2020-04-05] MEDS: quetiapine 100mg tablet PO SCH (20:06)
[2020-04-05] MEDS: mag hydrox/Alum hydrox/simeth 30ml oral suspension PO PRN (20:06)
[2020-04-05] MEDS: olanzapine 10mg tablet PO SCH (20:09)
[2020-04-05] MEDS: polyethylene glycol 3350 17gm powd pack PO SCH (20:17)
[2020-04-06] MEDS: LORazepam 1 MG tablet PO SCH ×3 (01:32→17:01)
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
[2020-04-06] MEDS: lithium carbonate 150mg capsule PO SCH ×2 (07:43→20:21)
[2020-04-06] MEDS: famotidine 20mg tablet PO SCH (07:43)
[2020-04-06] MEDS: QUEtiapine 25mg tablet PO SCH (07:43)
[2020-04-06 08:00] VITALS: BP 124/86
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
[2020-04-06] MEDS: famotidine 10mg tablet PO SCH (20:00)
[2020-04-06] MEDS: quetiapine 100mg tablet PO SCH (20:19)
[2020-04-06] MEDS: olanzapine 10mg tablet PO SCH (20:20)
[2020-04-06] MEDS: mag hydrox/Alum hydrox/simeth 30ml oral suspension PO PRN (20:21)
[2020-04-06] MEDS: polyethylene glycol 3350 17gm powd pack PO SCH (21:00)
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
[2020-04-07 08:00] VITALS: BP 134/83
[2020-04-07] MEDS: famotidine 10mg tablet PO SCH (08:12)
[2020-04-07] MEDS: LORazepam 1 MG tablet PO SCH ×3 (08:12→16:22)
[2020-04-07] MEDS: lithium carbonate 150mg capsule PO SCH (08:12)
[2020-04-07] MEDS: QUEtiapine 25mg tablet PO SCH (08:12)
--- NOTE | 2020-04-07 09:27 | NUR ---
CM Presenting Issues: Pt eloped from previous placement, is awaiting new placement. Interventions: SS had t/c with [facility] office and inquired about placement services for pt. Per t/c, [facility] will f/u with [facility] to obtain approval for placement services. Plan: SS will continue to engage [facility] & [facility] in dcp activities and monitor placement services for pt. Nandini Sauceda LCSW Addendum: 04/07/20 at 0930 by Nandini Sauceda Amended: Links added.
--- NOTE | 2020-04-07 09:37 | NUR ---
CM-Linkages Presenting Issues: Pt's been reporting dental pain to MD & care team, had been provided w/OTC pain meds, and indicated that he may have broken a tooth. Interventions: SS had t/c with pt's LPS conservator and advocated for access to a dental appointment to address issue. Per t/c, pt's conservator-Loan Diez will call and speak w/pt to determine if a dental appointment is needed at this time. Plan: SS will continue to monitor pt's daily functioning and engage [facility] in pt's care issues that are outside the scope of [facility] practices. Nandini Sauceda LCSW Addendum: 04/07/20 at 0941 by Nandini Sauceda Amended: Links added.
--- NOTE | 2020-04-07 10:00 | NUR ---
Group Therapy: Process Group This Clinicians goal for this process group were as follows: (1) Ask scaling questions about patients current anxiety, depression, and irritability symptoms as a check-in (2) Introduce and provide psychoeducation on distress tolerance skills. (2) Introduce the concept of radical acceptance and using our senses to self-soothe. (3) Share the acronym, [email or web address] Activities; Contributing; Comparisons; Emotions; Pushing Away; Thoughts; and Sensations (4) Process Clients thoughts and reflections on this topic within the group milieu. This Clinician facilitated group. Milieu staff was present to monitor behaviors within the process group. Patient identified experiencing the following levels of anxiety, depression, and anger/irritability while present in the group milieu (0-low; 10-High). Anxiety: 510 Depression: 5/10 Anger/irritability: 5/10 Patient presented as properly oriented x4 during the process group. Patient was dressed in a white t-shirt and [facility] scrub bottoms within the milieu. Psychomotor activity was unremarkable. Patient's thought content was clear, and concrete. Patient's thought process was clear, coherent, and linear. This Clinician did not observe Patient responding to any internal stimuli during session. The rate, latency, and tone of Patients speech was within normal limits. Patient maintained regular eye contact with this Clinician. Patient presented in calm euthymic mood, with slightly blunted affect during the process group. Patient presented as open and cooperative, and was verbally engaged and nonobtrusive within the group milieu. Patient shared appropriately when called upon by this Clinician to participate and offer his thoughts during the discussion about radical acceptance, using one's senses to self-soothe, and the ACCEPTS acronym (See above). In the context of practicing guided visualization to imagine a "Safe Place," that one could focus on to calm down, Patient referenced a time when he was working and had more personal freedoms in the past before he went to intermediate and was placed on conservatorship. Randy Hernandez MA, [employer] Addendum: 04/08/20 at 0856 by Randy ARELLANO Amended: Links added.
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
[2020-04-07] MEDS ORDERED: TRAZ-251 PO (17:10)
[2020-04-07] MEDS ORDERED: LIT300C PO (17:10)
[2020-04-07] MEDS ORDERED: FAMO20TA8 PO (17:10)
[2020-04-07] MEDS ORDERED: LITH300C PO (17:10)
[2020-04-07] MEDS ORDERED: QUET50TA22 PO (17:10)
[2020-04-07] MEDS ORDERED: OLAN20TA19 PO (17:10)
[2020-04-07] MEDS ORDERED: QUET300T19 PO (17:10)
[2020-04-07] MEDS ORDERED: NICO-668 BC (17:10)
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
--- NOTE | 2020-04-08 08:23 | NUR ---
Pt's d/c'd to [facility] yesterday, [facility] referral closed. Nandini Sauceda, BEAM RACKER Addendum: 04/08/20 at 0824 by Nandini Sauceda Amended: Links added.
== END 2020-04-07 16:55 | disposition home or self-care (01) | DRG 751 ==
LOC: ADULT MH 04-03 10:33
PROVIDERS: ADMIT Psychiatry & Neurology Psychiatry; ATTEND Psychiatry & Neurology Psychiatry
DX: F29 Unspecified psychosis not due to a substance or known physiological condition (principal); F17.200 Nicotine dependence, unspecified, uncomplicated; F60.2 Antisocial personality disorder; Z56.0 Unemployment, unspecified
CPT/HCPCS: 87081

== ENCOUNTER 2020-04-24 05:22 | Emergency (ER) | payer MEDICAID ==
[~2020-04-24 05:22] MED LIST changes: +LIT300C PO; -LITH150C8 PO; +LITH300C PO; -LORA-269 PO; +NICO-668 BC; +OLAN20TA19 PO; -OLAN20TA3 PO; +POLY17PO10 PO; -QUET-1 PO; +QUET300T19 PO; +QUET50TA22 PO; +TRAZ-251 PO
== END 2020-04-24 06:00 | disposition left against medical advice (07) ==
LOC: ER 05:22
DX: Z00.00 Encounter for general adult medical examination without abnormal findings (principal); Z53.21 Procedure and treatment not carried out due to patient leaving prior to being seen by health care provider

== ENCOUNTER 2020-04-26 03:01 | Emergency (ER) | payer MEDICAID ==
[~2020-04-26] VITALS: Ht 190.5 cm; Wt 95.5 kg
[2020-04-26 03:13] VITALS: BP 156/97
[2020-04-26] MEDS ORDERED: diphenhydrAMINE 25mg capsule PO ONE (04:10)
== END 2020-04-26 04:35 | disposition home or self-care (01) ==
LOC: ER 03:04
DX: R21 Rash and other nonspecific skin eruption (principal); Z00.8 Encounter for other general examination; G89.29 Other chronic pain; F31.9 Bipolar disorder, unspecified; F20.9 Schizophrenia, unspecified; F12.90 Cannabis use, unspecified, uncomplicated; Z72.89 Other problems related to lifestyle; Z60.2 Problems related to living alone; Z56.0 Unemployment, unspecified; Z59.0 Homelessness; Z79.899 Other long term (current) drug therapy
CPT/HCPCS: 99282; Q0163; 99283

== ENCOUNTER 2020-04-27 21:46 | Emergency (ER) | payer MEDICAID ==
[2020-04-27 22:28] VITALS: BP 138/82
== END 2020-04-28 03:32 | disposition home or self-care (01) ==
LOC: ER 21:46
DX: Z00.8 Encounter for other general examination (principal); F20.9 Schizophrenia, unspecified; G89.29 Other chronic pain; F31.9 Bipolar disorder, unspecified; F12.90 Cannabis use, unspecified, uncomplicated; Z72.89 Other problems related to lifestyle; Z60.2 Problems related to living alone; Z56.0 Unemployment, unspecified; Z59.0 Homelessness; Z79.899 Other long term (current) drug therapy
CPT/HCPCS: 99281